=== PATIENT | female | born 1955 | race Caucasian/White ===

== ENCOUNTER → 2016-06-23 | Outpatient (CLI) | payer OTHER, MEDICARE ==
[~2016-06-23] MED LIST: ASMIN/60 INH; ATV/2; AZEL137S6 NAE; CHOL200010; EFF/375 PO; IPRA0.03; IPRASOL34 INH; LEVA1.25 INH; MCRK20 PO; OMEP20CA9 PO; OXYC-59 PO; OXYC1TAB3 PO; OXYC20TA50 PO; PRM/45 PO; PROM25TA PO; SENN-91; TRIA75TA
== END | disposition home or self-care (01) ==
LOC: C.RDSM 14:51
PROVIDERS: ATTEND Physical Medicine & Rehabilitation Sports Medicine
DX: M25.551 Pain in right hip (principal); M25.552 Pain in left hip; M25.561 Pain in right knee

== ENCOUNTER → 2016-08-21 | Outpatient (CLI) | payer OTHER, MEDICARE ==
--- NOTE | 2016-08-21 16:19 | MAMMOGRAPHY REPORT ---
BILATERAL DIGITAL SCREENING MAMMOGRAM WITH CAD: 08/21/2016 CLINICAL HISTORY: Routine screening. Patient has no complaints. TECHNIQUE: Bilateral CC, MLO and repeat right MLO views were obtained. Current study was also evalua emily with a Computer Aided Detection (CAD) system. COMPARISON: Comparison is made to exams dated: 10/28/2013 mammogram, 10/21/2012 mammogram, 11/28/2010 m ammogram, 11/27/2009 mammogram - [facility], and 08/08/2008. BREAST COMPOSITION: The tissue of both breasts is almost entirely fatty. FINDINGS: The exam is markedly suboptimal due to inability of the patient adequately position for the exam. Within these limitations, there is stable asymmetry in the lateral left breast. No new suspi cious mass, architectural distortion or cluster of microcalcifications is seen. IMPRESSION: ACR BI-RADS CATEGORY 1: NEGATIVE Markedly suboptimal exam due to inability of the patient to adequately position for mammograms given her condition. Within this limitation, in the visualized portions of the breasts, there is no mammog raphic evidence of malignancy. A 1 year screening mammogram is recommended. The patient will receive written notification of the results. Approximately 10% of breast cancers are not detected with mammography. A negative mammographic report should not delay biopsy if a clinically suggestive mass is present. Lelia Luong M.D. ay/:08/21/2016 15:21:51 Laboratory Administrative Director: Ashly SALAZAR)(Daiana), [facility] letter sent: Normal 1/2 BI-RADS Code: ACR BI-RADS Category 1: Negative
== END | disposition home or self-care (01) ==
LOC: C.MAMM 14:55
PROVIDERS: ATTEND Obstetrics & Gynecology
DX: Z12.31 Encounter for screening mammogram for malignant neoplasm of breast (principal)

== ENCOUNTER → 2016-09-22 | Outpatient (CLI) | payer OTHER, MEDICARE ==
--- NOTE | 2016-09-22 16:59 | DIAGNOSTIC IMAGING REPORT ---
LUMBAR SPINE W/O CONTRAST HISTORY: Pain. Neuropathy. SPASTIC QUADR PLEGIA TECHNIQUE: Multiplanar multisequence MRI of the lumbar spine was performed without the use of contrast. COMPARISON: None. FINDINGS: For the purpose of the report the L5-S1 disc space will be located on axial image 27 of 30. Somewhat limited exam due to patient motion. Significant hypertrophic change posterior elements T10-T11 of the thoracic spine creating significant narrowing of the right neuroforamina. This area was not specifically scanned. Moderate degenerative change of the lumbar region. L1-L2: No significant central canal or neural foraminal narrowing. L2-L3: No significant central canal or neural foraminal narrowing. L3-L4: Mild central disc bulge. Minimal impact anterior thecal sac. L4-L5: Moderate multifactorial narrowing of the spinal canal. Mild broad-based bulging disc. L5-S1: Moderate degenerative change posterior limits. No significant compromise of the spinal canal or neural foramina. IMPRESSION: 1. Somewhat limited exam due to patient motion 2. Moderate multifactorial narrowing of spinal canal at L4-L5 and to a lesser extent L3-L4. 3. Hypertrophic change posterior elements T10-T11 level of the thoracic region demonstrate significant compromise of the right neuroforamina. This area was not specifically scanned The above report was generated using voice recognition software. It may contain grammatical, syntax or spelling errors. Electronically signed by: Ranjith Gagnon M.D. 09/22/2016 4:58 PM Dictated Date/Time: 09/22/2016 4:54 PM
== END | disposition home or self-care (01) ==
LOC: C.MRIBC 15:14
PROVIDERS: ATTEND Physical Medicine & Rehabilitation
DX: G83.89 Other specified paralytic syndromes (principal)

== ENCOUNTER → 2017-02-19 | Outpatient (CLI) | payer OTHER, MEDICARE | END | disposition home or self-care (01) | LOC: C.PAPS 09:03 | PROVIDERS: ATTEND Obstetrics & Gynecology | DX: Z01.411 Encounter for gynecological examination (general) (routine) with abnormal findings (principal); N95.2 Postmenopausal atrophic vaginitis; N95.8 Other specified menopausal and perimenopausal disorders; R87.628 Other abnormal cytological findings on specimens from vagina ==

== ENCOUNTER → 2017-10-08 | Day surgery (SDC) | payer OTHER, MEDICARE ==
[2017-10-01 13:08] VITALS: Ht 154.9 cm; Wt 109.1 kg
[~2017-10-08] VITALS: Ht 154.9 cm; Wt 109.1 kg
[~2017-10-08] MED LIST changes: +ALPR1TAB3 PO; +ASTN; -ATV/2; +ATV/2 PO; -AZEL137S6 NAE; -CHOL200010; +CHOL200010 PO; +HYDR-5688 PO; +IOPAMIDOL INJ 61% 15 ML VIAL ONE; +IPRA-64 INH; -IPRA0.03; -IPRASOL34 INH; -LEVA1.25 INH; +LEVA1.258 INH; +LIDOCAINE HCL 1% MPF 5 ML VIAL ONE; +LINA72CA PO; +MAGN400T6 PO; +MCRK/10 PO; -MCRK20 PO; +METH1CAP34 PO; +ONDA-170 PO; -OXYC-59 PO; -OXYC1TAB3 PO; -OXYC20TA50 PO; +POTA10CA28 PO; +PREMARIN CREAM; -PROM25TA PO; -SENN-91; +SODIUM CHLORIDE 0.9% INJ 10 ML VIAL ONE; -TRIA75TA; +VNTHFA/IN INH
--- NOTE | 2017-10-08 12:47 | History & Physical Bridge - SC ---
H&P Re-Evaluation Bridge Note: I have examined the patient, reviewed the History & Physical and in the interval since the performance of the History & Physical I have noted the following changes of clinical significance: No changes noted
--- NOTE | 2017-10-08 13:49 | [facility] Post Operative Brief Note ---
Immediate Operative Summary Operative Date Oct 08, 2017. Pre-Operative Diagnosis L4-5 stenosis with right L5 radiculopathy Post-Operative Diagnosis Same Procedure(s) Performed Lumbar Epidural Steroid Injection Surgeon Dr. Koko Loo Pharmaceutical Physician Surgeon(s) None Estimated Blood Loss 0 Findings Consistent with Post-Op Diagnosis Specimens NA Drains None Anesthesia Type Local Complication(s) none Disposition Disposition:
--- NOTE | 2017-10-08 13:50 | Discharge Instructions ---
Discharge Instructions Date of Service Oct 08, 2017. Visit Reason for Visit: Neuropathic Pain, Spastic Quadriplegia Discharge Discharge Diagnosis / Problem: Right leg pain Discharge Goals Goal(s): Decrease discomfort, Improve function Activity Recommendations Activity Limitations: resume your previous activity Anesthesia . Post Anesthesia Instructions: If you have had General Anesthesia or IV Sedation: * Do not drive today. * Resume driving when surgeon permits. * Do not make important decisions or sign legal documents today. * Call surgeon for: 1. Temperature elevations greater than 101 degrees F. 2. Uncontrollable pain. 3. Excessive bleeding. 4. Persistent nausea and vomiting. 5. Medication intolerance (nausea, vomiting or rash). * For nausea and vomiting use only clear liquids such as: tea, soda, bouillon until nausea subsides, then gradually increase diet as tolerated. * If you have any concerns or questions, call your surgeon's office. If physician is unavailable and it is an emergency, call 911 or go to the nearest emergency room. . Diet Recommendations Recommended Home Diet: resume previous diet Procedures Procedures Performed: Lumbar Epidural Steroid Injection Pending Studies Studies pending at discharge: no Medical Emergencies . Who to Call and When: Medical Emergencies: If at any time you feel your situation is an emergency, please call 911 immediately. . Non-Emergent Contact Non-Emergency issues call your: Specialist . . "Provider Documentation" section prepared by Cleve Loo. .
--- NOTE | 2017-10-08 14:08 | OPERATIVE REPORT ---
DATE OF OPERATION: 10/08/2017 PREOPERATIVE DIAGNOSIS: L4-L5 stenosis with a right L5 radiculopathy. POSTOPERATIVE DIAGNOSIS: L4-L5 stenosis with a right L5 radiculopathy. PROCEDURE: Right paramedian L5-S1 intralaminar epidural steroid injection under fluoroscopic guidance. INDICATIONS: The patient is a 62-year-old white female who has L4-L5 multifactorial stenosis with L5 radicular pain down the right leg. She has not responded to attempts of conservative treatment, presents today for an epidural steroid injection to provide her with relief. PHYSICAL EXAMINATION: Pleasant female, seated comfortably. She has some decreased sensation in the L4-L5 dermatome of the right lower extremity. Her left lower is without sensory changes. She has increased tone bilaterally in her lower extremities. CONSENT: Verbal and written consent was obtained from the patient. Risks and benefits were reviewed. Risks include, but not limited to epidural abscess, epidural hematoma, allergic reaction, dural puncture. The patient wishes to proceed. DESCRIPTION OF PROCEDURE: The patient was taken back to the special procedures room of the [facility] where she was maintained in a prone position. Backside was cleansed with Betadine x3 and a dry sterile dressing was applied. Fluoroscope was used to identify the L5-S1 intralaminar space which appeared open. L4-L5 was extremely tight. Overlying skin on the right side was anesthetized with a total 5 mL of lidocaine 1% with a 25-gauge 1.5-inch needle. A 20-gauge 6-inch Tuohy needle was then directed down towards the intralaminar space. It was advanced under lateral fluoroscopic guidance and kept contacting bone on the right side. It was then directed more midline at an oblique angle to enter the epidural space with a loss of resistance at a depth of 10 cm. Isovue-300 contrast 1 mL was injected in which demonstrated epidural uptake pattern. She then underwent injection after negative aspiration of 40 mg Depo-Medrol and 4 mL of preservative-free sodium chloride which was very slow as the patient was very sensitive. DISPOSITION: 1. The patient was taken out into the discharge recovery room where she will be discharged home once discharge criteria have been met. 2. Follow up in the [facility] office in 4 weeks' time. I attest to the content of the Intraoperative Record and any orders documented therein. Any exception s are noted below.
[2017-10-08 14:36] VITALS: PULSE 69; TEMP 36.4; O2SAT 97
[2017-10-08 14:47] VITALS: BP 168/90
== END | disposition home or self-care (01) ==
LOC: X.SURG 12:30
PROVIDERS: ATTEND Physical Medicine & Rehabilitation
DX: M54.16 Radiculopathy, lumbar region (principal); G80.0 Spastic quadriplegic cerebral palsy; Z79.899 Other long term (current) drug therapy

== ENCOUNTER 2022-12-12 17:03 | Inpatient (IN) ==
--- NOTE | 2022-12-12 17:16 | ED Triage Note ---
Date of Service December 12, 2022 History of Present Illness This patient was briefly evaluated while in triage. An abbreviated physical exam was performed. This patient is a 67-year-old Female who presents to the ED for evaluation of edema in her legs and shortness of breath. She has had worsening shortness of breath and trouble remembering over the past few weeks. She saw her PCP today and they sent her in. Physical Exam VITALS: Vitals are noted on the nurse's note and reviewed by myself. GENERAL: This is a 67-year-old female, sitting in a wheelchair in triage. MOUTH: Mucous membranes moist. HEART: Regular rate and rhythm without murmurs gallops or rubs. LUNGS: Clear to auscultation bilaterally without wheezes, rales or rhonchi. EXTREMITIES: Edema and erythema to bilateral lower extremities. NEURO: Patient was alert and oriented to person place and time. Initial orders for labs and / or imaging were placed and patient was placed in the waiting area until a bed is available. Please see further documentation for the full ED course.
[2022-12-12 18:00] LABS: Base Excess VBG 10.3 mEq/L; HCO3 VBG 37 mmol/L; Oxygen Saturation VBG 79.4 %; PCO2 VBG 57 mmHg (38-50); PO2 VBG 46 mmHg; pH VBG 7.42 (7.36-7.41)
[2022-12-12 18:17] LABS: Basophils # (auto) 0.05 K/uL (0.00-0.20); Basophils % (auto) 0.6 %; Eosinophils # (auto) 0.26 K/uL (0.00-0.50); Hematocrit (blood only) 38.5 % (37.0-47.0); Hemoglobin 11.4 g/dl (12.0-16.0); Immature Granulocytes # (auto) 0.02 K/uL (0.01-0.20); Immature Granulocytes % (auto) 0.2 %; Lymphocytes # (auto) 2.51 K/uL (1.20-3.40); Lymphocytes % (auto) 28.7 %; Mean Corpuscular Hgb Conc 29.6 g/dL (32.0-36.0); Mean Corpuscular Volume 81.1 fL (80.0-100.0); Mean Platelet Volume 10.5 fL (9.4-12.4); Monocytes # (auto) 0.53 K/uL (0.11-0.59); Monocytes % (auto) 6.1 %; Neutrophils # (auto) 5.37 K/uL (1.40-6.50); Neutrophils % (auto) 61.4 %; Platelet Count 332 K/uL (130-400); RDW Coefficient of Variation 16.3 % (11.5-14.5); RDW Standard Deviation 47.6 fL (36.4-46.3); Red Blood Count 4.75 M/uL (4.20-5.40); White Blood Count 8.74 K/ul (4.8-10.8)
[2022-12-12 18:37] LABS: Alanine Aminotransferase 6 U/L (7-52); Albumin Globulin Ratio 1.1 (0.9-2); Alkaline Phosphatase 34 U/L (34-104); Anion Gap 6 (3-11); Aspartate Aminotransferase 22 U/L (13-39); BUN Creatinine Ratio 21.8 (10-20); Bilirubin,Total 0.5 mg/dl (0.2-1.0); Blood Urea Nitrogen 12 mg/dl (6-23); Calcium 8.9 mg/dl (8.6-10.3); Carbon Dioxide 33 mmol/L (21-32); Chloride 99 mmol/L (98-107); Est GFR (African American) 110.9 ml/min; Est GFR (Non-African American) 95.7 ml/min; Globulin 3.7 gm/dl (2.5-4.0); Glucose 94 mg/dl (70-99(Fasting)); Potassium 4.2 mmol/L (3.5-5.1); Sodium 138 mmol/L (136-145); Total Protein 7.7 gm/dl (6.0-8.3)
[2022-12-12 18:42] LABS: Troponin I High Sensitivity 12.3 pg/ml (0-14)
[2022-12-12] MEDS ORDERED: FUROSEMIDE 40 MG/4 ML VIAL IV STA (20:03)
--- NOTE | 2022-12-12 20:04 | Emergency Department Note ---
Impression & Plan Shortness of breath, Edema, pitting ED Provider Note NAME: OG CHANDRA AGE: 67 SEX: F : 1955 ARRIVES VIA: Walk-In INFORMANT: Patient ED PROVIDER(S): Milton Lucas DO CHIEF COMPLAINT: Shortness of breath and confusion HPI: Patient is a 67-year-old female with a past medical history of cerebral palsy who presents to the the ER for shortness of breath, confusion and weakness. Patient notes that she has had increased swelling of her legs which has been going on over the past week. She has been taking her Lasix. She does not believe that she missed any doses. She denies any headache or change in vision. No chest pain but does have shortness of breath. No belly pain, nausea, vomiting, or diarrhea. No dysuria, urgency, or frequency. No other exacerbating or remitting factors. ADDITIONAL HISTORY OBTAINED: Per HPI Chronic Medical/Social Conditions Affecting Care: Per HPI PAST MEDICAL HISTORY:See Below PAST SURGICAL HISTORY:See Below FAMILY HISTORY:See Below SOCIAL HISTORY:See Below HOME MEDICATIONS:See Below ALLERGIES:See Below VITALS:See Below PHYSICAL EXAMINATION: GENERAL: Sitting up in bed, alert, well appearing, well nourished, no distress, non-toxic EYE EXAM: normal conjunctiva. OROPHARYNX: mucous membranes are moist NECK: supple, no nuchal rigidity, no adenopathy, non-tender LUNGS: Clear to auscultation. Normal chest wall mechanics HEART: no murmurs, S1 normal and S2 normal ABDOMEN: abdomen soft, non-tender, normo-active bowel sounds, no masses, no rebound or guarding. BACK: Back is symmetrical on inspection and there is no deformity, no midline tenderness, no CVA tenderness. SKIN: no rashes and no bruising UPPER EXTREMITIES: upper extremities are grossly normal. LOWER EXTREMITIES: No pitting edema. NEURO EXAM: Normal sensorium, cranial nerves II-XII grossly intact, normal speech. MEDICAL DECISION MAKING: Patient is a 67-year-old female who presents ER for above-stated complaint. IV was established blood work was obtained. Labs show no significant leukocytosis and mild anemia 11.4. VBG with a pH of 7.4 and a CO2 of 57. BMP along with LFTs bilirubin was unremarkable. Troponin was negative. proBNP was elevated at 104. Chest x-ray was unremarkable. Patient has pitting edema in the lower extremities tracking up to the hips. Patient was given IV Lasix. Updated bedside. Discussed with the hospitalist for further evaluation management and treatment. External Records Reviewed: Saw Dr. Goyal on 11/25 for cerebral palsy Consults/Care Managements Discussions: Per [facility] Triage Nursing notes reviewed. Limited review of prior medical records performed Vital Signs: reviewed and remarkable for HTN Differential diagnosis: Differential diagnoses includes but is not limited to pneumonia, bronchitis, COPD/Asthma exacerbation, pneumothorax, pulmonary embolism, congestive heart failure, acute coronary syndrome ER treatment provided: See below Diagnostics interpreted by me include EKG and cardiac monitoring as listed below: -Cardiac Monitoring: An order was placed for continuous cardiac monitoring. The monitor shows a rate of 70 with sinus rhythm. -ECG: none -Laboratory studies:Interpreted by me as stated above in MDM and shown below. Imaging studies: Xrays: As interpreted by me: Portable AP upright 1 view of the chest shows no focal infiltrate CTs show: none Procedures:none Critical Care: None Past Med/Surg History Medical History (Updated 12/13/22 @ 00:07 by Milton Lucas DO) Anxiety Baclofen pump failure Cerebral palsy Chronic back pain Depression GERD (gastroesophageal reflux disease) History of anesthesia reaction pt states that the last time she had an EGD at [facility] they had the blood pressure cuff on the same arm as her IV and she never received enough anes thesia because of this and she was in pain throughout all the whole experience Hypertension Nerve pain Post traumatic stress disorder Restrictive lung disease reason for inhalers/nebulizer Type I CRPS (complex regional pain syndrome) Surgical History (Updated 11/12/22 @ 13:19 by Radha Leal RN) H/O: hysterectomy with unilateral oophorectomy History of appendectomy History of arthroscopy of left knee History of arthroscopy of right knee History of colonoscopy History of esophagogastroduodenoscopy (EGD) History of left hip replacement History of oophorectomy, unilateral right History of tonsillectomy History of tooth extraction History of total left hip replacement S/P endoscopy Family History Father Family history of diabetes mellitus Myocardial infarction Other No family history of adverse response to anesthesia Denies family history of Ovarian cancer Prostate cancer Breast cancer Colorectal cancer Social History (Updated 11/12/22 @ 13:43 by Radha Leal RN) Smoking Status: Never smoker Tobacco Type: Cigarettes Age Started Using Tobacco: 16; Age Quit Using Tobacco: 19; Cigarettes Per Day: 2-3; Second Hand Exposure: Yes (IN THE PAST); Do You Dip or Chew Tobacco: No; Hx Alcohol Use: No Hx Substance Use: No Preferred Language: Austrian Communication Ability: Effective Visual Impairment: Partially Limited Hearing Ability: Hard of Hearing Shop Firer/Fireman Required: No Beliefs That Will Affect Care: None marital status: Current Living Situation: Spouse current occupational status: disabled Feels Safe at Home: Yes Childhood Exposure to Second-Hand Smoke: Yes Diet: regular Diet Comment: Mediterranean Dental Care, Regularly: Yes Physical Activity Frequency: Does not Exercise Seatbelt Use: always Sunscreen Use: No Assistive Devices: Glasses, Nebulizer and Wheelchair Allergies Allergies Allergy/AdvReac Type Severity Reaction Status Date / Time duloxetine Allergy Severe INCREASES Verified 11/25/22 14:34 MUSCLE SPASMS, UNABLE TO MOVE fentanyl Allergy Severe "I almost Verified 11/25/22 14:34 when they gave it me" fexofenadine Allergy Severe HEART Verified 11/25/22 14:34 PALPITATIONS iodine Allergy Severe RASH, Verified 11/25/22 14:34 BLISTERS, ITCHING latex Allergy Severe RASH, Verified 11/25/22 14:34 BLISTERS povidone-iodine Allergy Severe RASH, Verified 11/25/22 14:34 BLISTERS salmeterol Allergy Severe INCREASE Verified 11/25/22 14:34 SPASMS AND CAN NOT MOVE diazepam Allergy Intermediate FALLS Verified 11/25/22 14:34 ASLEEP AND DROOL adhesive Allergy Mild RASH, Verified 11/25/22 14:34 BLISTERS baclofen Allergy Mild SLEEPY AND Verified 11/25/22 14:34 LEG PAIN cephalexin Allergy Mild NAUSEA, Verified 11/25/22 14:34 FLU-LIKE SYMPTOMS, RASH fluticasone Allergy Mild NOSE BLEEDS Verified 11/25/22 14:34 gabapentin Allergy Mild DIZZINESS Verified 11/25/22 14:34 AND FELL OVER tramadol Allergy Mild RASH & Verified 11/25/22 14:34 ITCHING methadone AdvReac Mild MEMORY Verified 11/25/22 14:34 LOSS, DIZZINESS, NIGHTMARES Home Meds Home Medications Medication Instructions Recorded Confirmed albuterol sulfate 90 mcg/actuation 1 puff inhalation UD PRN Shortness 11/12/18 11/25/22 aerosol inhaler Of Breath artificial tears(hypromellose) 0.3 1 drp ophthalmic (eye) UD PRN Dry 11/12/18 11/25/22 % eye drops Eye(S) azelastine 137 mcg (0.1 %) nasal 1 spray intranasal UD PRN Allergy 11/12/18 11/25/22 spray aerosol Symptoms levalbuterol HCl 1.25 mg/3 mL 1.25 mg inhalation UD PRN 11/12/18 11/25/22 solution for nebulization Shortness Of Breath lorazepam 2 mg tablet 2 mg PO Q4 09/07/19 11/25/22 calcium carbonate 500 mg calcium 500 mg PO QAM 11/10/19 11/25/22 (1,250 mg) tablet (Calcium 500) cholecalciferol (vitamin D3) 25 2,000 mcg PO QAM 11/10/19 11/25/22 mcg (1,000 unit) tablet (Vitamin D3) omega-3 fatty acids 1,000 mg PO QAM 11/10/19 11/25/22 hydrocodone 10 mg-acetaminophen 2 tab PO Q4H PRN 03/15/20 11/25/22 325 mg tablet TESTOSTERONE MICRO 0.1% See Rx Instructions .Route 1XD 11/12/22 11/25/22 alprazolam 1 mg disintegrating 1.5 mg PO DAILY PRN Anxiety #30 11/12/22 11/25/22 tablet tabs aripiprazole 10 mg tablet (Abilify) 10 mg PO DAILY 11/12/22 11/25/22 furosemide 20 mg tablet 60 mg PO DAILY 11/12/22 11/25/22 mirtazapine 30 mg tablet 30 mg PO HS 11/12/22 11/25/22 omeprazole 20 mg capsule,delayed 20 mg PO DAILY Acid Reflux 11/12/22 11/25/22 release potassium chloride 10 mEq 20 meq PO DAILY 11/12/22 11/25/22 tablet,extended release venlafaxine 25 mg tablet 75 mg PO DAILY 11/12/22 11/25/22 Previous Rx's Medication Instructions Recorded famotidine 20 mg tablet (Pepcid AC) 20 mg PO DAILY #30 tabs 11/18/19 nystatin-triamcinolone 100,000 1 applic topical QID PRN Rash 10 11/15/20 unit/g-0.1 % topical cream days #60 grams conjugated estrogens 0.625 mg/gram 0.3125 mg vaginal 3XWK #30 grams 12/03/20 vaginal cream (Premarin) ondansetron 8 mg disintegrating 8 mg PO Q8H PRN Nausea #90 tabs 01/17/21 tablet sucralfate 100 mg/mL oral 5 ml PO QID #420 mL 05/03/21 suspension (Carafate) diazepam 5 mg tablet (Valium) 5 mg PO .COMPLEX PRN anxiety #2 03/12/22 tabs conjugated estrogens 0.45 mg 0.45 mg PO DAILY #30 tabs 04/04/22 tablet (Premarin) Results & Data (ED) Vital Signs Vital Signs - 24 hr 12/12/22 17:15 Temperature 36.6 C Temperature Source Temporal Artery Scan Pulse Rate 75 Respiratory Rate 18 Respiratory Effort / Characteristics Non-Labored Respiratory Depth Normal Blood Pressure 198/108 H Blood Pressure Mean 138 Pulse Oximetry 94 Oxygen Delivery Method Room Air Sepsis Recent Fever Within 48 Hours No Sepsis New/Unexplained Change in Mental Status No Sepsis Action Taken by Nursing No Action Required Laboratory Data 12/12/22 17:37 12/12/22 17:37 Lab Results 12/12/22 12/12/22 12/12/22 Range/Units 17:37 17:37 17:37 WBC 8.74 (4.8-10.8) K/ul RBC 4.75 (4.20-5.40) M/uL Hgb 11.4 L (12.0-16.0) g/dl Hct 38.5 (37.0-47.0) % MCV 81.1 (80.0-100.0) fL MCH 24.0 L (25.0-34.0) pg MCHC 29.6 L (32.0-36.0) g/dL RDW Std Deviation 47.6 H (36.4-46.3) fL RDW Coeff of Luis 16.3 H (11.5-14.5) % Plt Count 332 (130-400) K/uL MPV 10.5 (9.4-12.4) fL Immature Gran % (Auto) 0.2 % Neut % (Auto) 61.4 % Lymph % (Auto) 28.7 % [place] % (Auto) 6.1 % Eos % (Auto) 3.0 % Baso % (Auto) 0.6 % Neut # (Auto) 5.37 (1.40-6.50) K/uL Lymph # (Auto) 2.51 (1.20-3.40) K/uL [place] # (Auto) 0.53 (0.11-0.59) K/uL Eos # (Auto) 0.26 (0.00-0.50) K/uL Baso # (Auto) 0.05 (0.00-0.20) K/uL Immature Gran # (Auto) 0.02 (0.01-0.20) K/uL VBG pH 7.42 H (7.36-7.41) VBG pCO2 57 H (38-50) mmHg VBG pO2 46 mmHg VBG HCO3 37 mmol/L VBG O2 Saturation 79.4 % VBG Base Excess 10.3 mEq/L Sodium (136-145) mmol/L Potassium (3.5-5.1) mmol/L Chloride (98-107) mmol/L Carbon Dioxide (21-32) mmol/L Anion Gap (3-11) BUN (6-23) mg/dl Creatinine (0.6-1.2) mg/dl Est Cr Clr Drug Dosing Est GFR ( Amer) ml/min Est GFR (Non-Af Amer) ml/min BUN/Creatinine Ratio (10-20) Glucose (70-99(Fasting)) mg/dl Calcium (8.6-10.3) mg/dl Total Bilirubin (0.2-1.0) mg/dl AST (13-39) U/L ALT (7-52) U/L Alkaline Phosphatase (34-104) U/L Troponin I High Sens (0-14) pg/ml B-Natriuretic Peptide 104 H (0-100) pg/ml Total Protein (6.0-8.3) gm/dl Albumin (3.4-5.0) gm/dl Globulin (2.5-4.0) gm/dl Albumin/Globulin Ratio (0.9-2) 12/12/22 Range/Units 17:37 WBC (4.8-10.8) K/ul RBC (4.20-5.40) M/uL Hgb (12.0-16.0) g/dl Hct (37.0-47.0) % MCV (80.0-100.0) fL MCH (25.0-34.0) pg MCHC (32.0-36.0) g/dL RDW Std Deviation (36.4-46.3) fL RDW Coeff of Luis (11.5-14.5) % Plt Count (130-400) K/uL MPV (9.4-12.4) fL Immature Gran % (Auto) % Neut % (Auto) % Lymph % (Auto) % [place] % (Auto) % Eos % (Auto) % Baso % (Auto) % Neut # (Auto) (1.40-6.50) K/uL Lymph # (Auto) (1.20-3.40) K/uL [place] # (Auto) (0.11-0.59) K/uL Eos # (Auto) (0.00-0.50) K/uL Baso # (Auto) (0.00-0.20) K/uL Immature Gran # (Auto) (0.01-0.20) K/uL VBG pH (7.36-7.41) VBG pCO2 (38-50) mmHg VBG pO2 mmHg VBG HCO3 mmol/L VBG O2 Saturation % VBG Base Excess mEq/L Sodium 138 (136-145) mmol/L Potassium 4.2 (3.5-5.1) mmol/L Chloride 99 (98-107) mmol/L Carbon Dioxide 33 H (21-32) mmol/L Anion Gap 6 (3-11) BUN 12 (6-23) mg/dl Creatinine 0.55 L (0.6-1.2) mg/dl Est Cr Clr Drug Dosing Not Reportable Est GFR ( Amer) 110.9 ml/min Est GFR (Non-Af Amer) 95.7 ml/min BUN/Creatinine Ratio 21.8 H (10-20) Glucose 94 (70-99(Fasting)) mg/dl Calcium 8.9 (8.6-10.3) mg/dl Total Bilirubin 0.5 (0.2-1.0) mg/dl AST 22 (13-39) U/L ALT 6 L (7-52) U/L Alkaline Phosphatase 34 (34-104) U/L Troponin I High Sens 12.3 (0-14) pg/ml B-Natriuretic Peptide (0-100) pg/ml Total Protein 7.7 (6.0-8.3) gm/dl Albumin 4.0 (3.4-5.0) gm/dl Globulin 3.7 (2.5-4.0) gm/dl Albumin/Globulin Ratio 1.1 (0.9-2) Administered Medications Discontinued Medications Alprazolam (Alprazolam 0.5 Mg Tablet) 1 mg PO NOW STA Stop: 12/12/22 21:28 Last Admin: 12/12/22 21:41 Dose: 1 mg Documented By: STEPHANIE Furosemide (Furosemide 40 Mg/4 Ml Vial) 40 mg IV NOW STA Stop: 12/12/22 20:04 Last Admin: 12/12/22 21:41 Dose: 40 mg Documented By: STEPHANIE Imaging Data Radiologist's Impression: Chest X-Ray 12/12/22 17:18 XR chest 1V portable HISTORY: 67 years-old Female Sob acute shortness of breath COMPARISON: 11/24/2022 TECHNIQUE: AP view of the chest FINDINGS: Cardiac silhouette is enlarged. Pulmonary vascular congestion. Mild bibasilar densities. No pneumothorax, or large pleural effusion. Mild mid thoracic dextroscoliosis. Degenerative changes of the shoulders and spine. IMPRESSION: 1. Cardiomegaly with decreased pulmonary vascular congestion compared to the prior exam. 2. Mild bibasilar opacities. ACT 112: Negative or not required by law. The above report was generated using voice recognition software. It may contain grammatical, syntax or spelling errors. Electronically signed by: Emmett Montes M.D. 12/12/2022 9:04 PM Discharge Plan Visit Data Chief Complaint: Edema To Extremity Stated Complaint: EDEMA TO LEGS, SOB ED Provider: Milton Lucas Discharge Problem: Shortness of breath, Edema, pitting Discharge Instructions Interventions: ED Discharge Assessment Last Done: 12/12/22 22:30
--- NOTE | 2022-12-12 21:06 | XRay Report ---
XR chest 1V portable HISTORY: 67 years-old Female Sob acute shortness of breath COMPARISON: 11/24/2022 TECHNIQUE: AP view of the chest FINDINGS: Cardiac silhouette is enlarged. Pulmonary vascular congestion. Mild bibasilar densities. No pneumotho rax, or large pleural effusion. Mild mid thoracic dextroscoliosis. Degenerative changes of the should ers and spine. IMPRESSION: 1. Cardiomegaly with decreased pulmonary vascular congestion compared to the prior exam. 2. Mild bibasilar opacities. ACT 112: Negative or not required by law. The above report was generated using voice recognition software. It may contain grammatical, syntax o r spelling errors. Electronically signed by: Emmett Montes M.D. 12/12/2022 9:04 PM
[2022-12-12] MEDS ORDERED: ALPRAZolam 0.5 MG TABLET PO STA (21:27)
--- NOTE | 2022-12-12 21:36 | History & Physical Report ---
Date of Service December 12, 2022 Assessment & Plan (1) Fluid overload: Plan: -Progressive dyspnea, worsening peripheral edema and weight gain with noted mild elevation of BNP and CXR findings suggestive of hypervolemia -Suspect this may represent CHF exacerbation (unclear trigger), though her symptoms may also be attributed to progressive deconditioning, chronic venous stasis and uncontrolled PEEWEE/OHS (there is apparently a history of PEEWEE diagnosis in past per but never started treatment with CPAP) -S/p Lasix 40 mg IV in ER. Continue Lasix 40 mg IV BID for now though low threshold to reduce/discontinue as clinical course evolves -Compression stockings ordered -Pure wick catheter placed, strict I's and O's -Continue KCl supplementation while on diuresis -TTE pending, no previous echocardiogram in chart -Currently stable respiratory status on RA (2) Altered mental status: Plan: -AMS with increased lethargy and word-finding difficulty -Lower suspicion for acute neurologic injury given unimpressive neurological exam, I suspect this may be metabolic encephalopathy from fluid overload/possible CHF exacerbation vs sedation effect from her multiple psychotropic medications -Will hold psychotropic and sedative medications for now- Abilify, Xanax, Valium, Ativan, Remeron -Deferring head CT for now (3) Physical deconditioning: Plan: -Significant deconditioning secondary to fluid overload, multiple poorly controlled comorbidities -PT/OT ordered (4) Hypertension: Plan: -Suspected HTN urgency in outpatient office and noted BP elevation to 198/108 in ER -At time of evaluation, pt did not report particular HTN urgency symptoms including headache -Deferring PRN antihypertensive for now -Seemingly not on any antihypertensives as outpatient -Monitor BP, anticipate some reduction as diuresis continues (5) Anxiety: Plan: -Significant anxiety in ER for which Xanax 1 mg was administered (home dose reportedly Xanax 1.5 mg PRN daily) -We will hold further home anxiolytics (Xanax, lorazepam) given AMS (6) Chronic back pain: Plan: -Holding home [place] due to AMS -Reportedly on Valium and lorazepam for spasticity, holding as above -Tylenol PRN in interim (7) Depression: Plan: -Continue Effexor (8) Post traumatic stress disorder: Plan: -Continue Effexor (9) GERD (gastroesophageal reflux disease): Plan: -Continue omeprazole, famotidine, carafate Plan FENGI: Low salt, fluid restriction 1500 mL Code status: Full DVT prophylaxis: Lovenox Isolation: None Disposition: Medical/surgical with telemetry History of Present Illness Chief Complaint: Shortness of breath Primary Care Provider: Marcela Thomas MD Pt is 67 yo F with PMH anxiety, chronic back pain, depression, PTSD, GERD, HTN, PEEWEE presenting with edema and dyspnea. Pt referred to ED by PCP at clinic visit today given worsening edema and dyspnea causing concern for possible CHF/fluid overload. Was also seen on 11/20 and recommended ED evaluation but pt declined, Lasix increased to 40 mg BID. CXR significant for pulmonary edema b/l and BMP demonstrating hypercapnia. Pt has been having headache, hypoxia to O2 80s% and elevated BP 201/102 at home and informed clinic of this, advised to go to ED during nursing triage and became argumentative. History given by both patient and with significant clarification and corroboration by in private. Apparently, pt has been having ongoing leg swelling, weight gain (unspecified amount though 5+ lbs), dyspnea over past several weeks. She went to [facility] ER for this about 1 month prior and was discharged with instruction to continue daily compression hose. She reportedly had some psychiatric symptoms for which [facility] ER physicians considered 302 but permitted her to be discharged after close outpatient psychiatric f/u was arranged with [facility] locally. Psychiatry has reportedly made medication changes but details unknown. Pt has been having increasing word finding difficulty over past few weeks with an abrupt increase in this as of 12/11. She has been having associated lethargy and inattention at home. Has not had any particular Pt arrived to ER with BP 198/108. Initial evaluation significant for Hgb 11.4, VBG pH 7.42 and pCO2 57, CO2 33, BNP 104, CXR with b/l opacities, pulmonary vascular congestion and mild pulmonary edema b/l (though improved from previous CXR). EKG unremarkable. ER interventions include Lasix 40 mg IV. At present, pt reports frustration being in ER and general discomfort. Insisted on receiving anxiety medication. Denies any new complaints, states dyspnea is ongoing but mildly improved after Lasix. Allergies Allergy/AdvReac Type Severity Reaction Status Date / Time duloxetine Allergy Severe INCREASES Verified 11/25/22 14:34 MUSCLE SPASMS, UNABLE TO MOVE fentanyl Allergy Severe "I almost Verified 11/25/22 14:34 when they gave it me" fexofenadine Allergy Severe HEART Verified 11/25/22 14:34 PALPITATIONS iodine Allergy Severe RASH, Verified 11/25/22 14:34 BLISTERS, ITCHING latex Allergy Severe RASH, Verified 11/25/22 14:34 BLISTERS povidone-iodine Allergy Severe RASH, Verified 11/25/22 14:34 BLISTERS salmeterol Allergy Severe INCREASE Verified 11/25/22 14:34 SPASMS AND CAN NOT MOVE diazepam Allergy Intermediate FALLS Verified 11/25/22 14:34 ASLEEP AND DROOL adhesive Allergy Mild RASH, Verified 11/25/22 14:34 BLISTERS baclofen Allergy Mild SLEEPY AND Verified 11/25/22 14:34 LEG PAIN cephalexin Allergy Mild NAUSEA, Verified 11/25/22 14:34 FLU-LIKE SYMPTOMS, RASH fluticasone Allergy Mild NOSE BLEEDS Verified 11/25/22 14:34 gabapentin Allergy Mild DIZZINESS Verified 11/25/22 14:34 AND FELL OVER tramadol Allergy Mild RASH & Verified 11/25/22 14:34 ITCHING methadone AdvReac Mild MEMORY Verified 11/25/22 14:34 LOSS, DIZZINESS, NIGHTMARES Home Medications Medication Instructions Recorded Confirmed Type albuterol sulfate 90 mcg/actuation 1 puff inhalation UD PRN Shortness 11/12/18 11/25/22 History aerosol inhaler Of Breath artificial tears(hypromellose) 0.3 1 drp ophthalmic (eye) UD PRN Dry 11/12/18 11/25/22 History % eye drops Eye(S) azelastine 137 mcg (0.1 %) nasal 1 spray intranasal UD PRN Allergy 11/12/18 11/25/22 History spray aerosol Symptoms levalbuterol HCl 1.25 mg/3 mL 1.25 mg inhalation UD PRN 11/12/18 11/25/22 History solution for nebulization Shortness Of Breath lorazepam 2 mg tablet 2 mg PO Q4 09/07/19 11/25/22 History calcium carbonate 500 mg calcium 500 mg PO QAM 11/10/19 11/25/22 History (1,250 mg) tablet (Calcium 500) cholecalciferol (vitamin D3) 25 2,000 mcg PO QAM 11/10/19 11/25/22 History mcg (1,000 unit) tablet (Vitamin D3) omega-3 fatty acids 1,000 mg PO QAM 11/10/19 11/25/22 History famotidine 20 mg tablet (Pepcid AC) 20 mg PO DAILY #30 tabs 11/18/19 11/25/22 Rx hydrocodone 10 mg-acetaminophen 2 tab PO Q4H PRN 03/15/20 11/25/22 History 325 mg tablet nystatin-triamcinolone 100,000 1 applic topical QID PRN Rash 10 11/15/20 11/25/22 Rx unit/g-0.1 % topical cream days #60 grams conjugated estrogens 0.625 mg/gram 0.3125 mg vaginal 3XWK #30 grams 12/03/20 11/25/22 Rx vaginal cream (Premarin) ondansetron 8 mg disintegrating 8 mg PO Q8H PRN Nausea #90 tabs 01/17/21 11/25/22 Rx tablet sucralfate 100 mg/mL oral 5 ml PO QID #420 mL 05/03/21 11/25/22 Rx suspension (Carafate) diazepam 5 mg tablet (Valium) 5 mg PO .COMPLEX PRN anxiety #2 03/12/22 11/25/22 Rx tabs conjugated estrogens 0.45 mg 0.45 mg PO DAILY #30 tabs 04/04/22 11/25/22 Rx tablet (Premarin) TESTOSTERONE MICRO 0.1% See Rx Instructions .Route 1XD 11/12/22 11/25/22 History alprazolam 1 mg disintegrating 1.5 mg PO DAILY PRN Anxiety #30 11/12/22 11/25/22 History tablet tabs aripiprazole 10 mg tablet (Abilify) 10 mg PO DAILY 11/12/22 11/25/22 History furosemide 20 mg tablet 60 mg PO DAILY 11/12/22 11/25/22 History mirtazapine 30 mg tablet 30 mg PO HS 11/12/22 11/25/22 History omeprazole 20 mg capsule,delayed 20 mg PO DAILY Acid Reflux 11/12/22 11/25/22 History release potassium chloride 10 mEq 20 meq PO DAILY 11/12/22 11/25/22 History tablet,extended release venlafaxine 25 mg tablet 75 mg PO DAILY 11/12/22 11/25/22 History Past Med/Surg History Medical History (Updated 12/13/22 @ 00:07 by Milton Lucas DO) Anxiety Baclofen pump failure Cerebral palsy Chronic back pain Depression GERD (gastroesophageal reflux disease) History of anesthesia reaction pt states that the last time she had an EGD at [facility] they had the blood pressure cuff on the same arm as her IV and she never received enough anesthesia because of this and she was in pain throughout all the whole experience Hypertension Nerve pain Post traumatic stress disorder Restrictive lung disease reason for inhalers/nebulizer Type I CRPS (complex regional pain syndrome) Surgical History (Updated 11/12/22 @ 13:19 by Radha Leal RN) H/O: hysterectomy with unilateral oophorectomy History of appendectomy History of arthroscopy of left knee History of arthroscopy of right knee History of colonoscopy History of esophagogastroduodenoscopy (EGD) History of left hip replacement History of oophorectomy, unilateral right History of tonsillectomy History of tooth extraction History of total left hip replacement S/P endoscopy Family History Father Family history of diabetes mellitus Myocardial infarction Other No family history of adverse response to anesthesia Denies family history of Ovarian cancer Prostate cancer Breast cancer Colorectal cancer Social History (Updated 11/12/22 @ 13:43 by Radha Leal RN) Smoking Status: Former smoker Tobacco Type: Cigarettes Age Started Using Tobacco: 16; Age Quit Using Tobacco: 19; Cigarettes Per Day: 2-3; Second Hand Exposure: Yes (IN THE PAST); Do You Dip or Chew Tobacco: No; Hx Alcohol Use: No Hx Substance Use: Yes Last Used Substance Other:: HAS USED RX MARIJUANA IN PAST (PT WOULD NOT ANSWER CLEARLY/UNSURE IF USING) Preferred Language: Kyrgyz Communication Ability: Effective Visual Impairment: Partially Limited Hearing Ability: Hard of Hearing Foot Drill Operator Required: No Beliefs That Will Affect Care: None marital status: Current Living Situation: Spouse Current Living Situation Comment: Lives at home with current occupational status: disabled Feels Safe at Home: Yes Safety Concerns: Feels Safe At This Time Childhood Exposure to Second-Hand Smoke: Yes Diet: regular Diet Comment: Mediterranean Dental Care, Regularly: Yes Physical Activity Frequency: Does not Exercise Seatbelt Use: always Sunscreen Use: No Assistive Devices: Crutches, Glasses and Wheelchair Review of Systems Review of Systems: Per HPI/Subjective Physical Exam Physical Exam: General: ill-appearing, agitated, obese HEENT: PERRL, conjunctivae clear without injection, anicteric sclerae, moist mucous membranes, clear oropharynx without exudate or erythema Neck: supple, trachea midline, no thyromegaly, no JVD, no cervical lymphadenopathy CV: RRR, normal S1 and S2, no murmurs Resp: Diminished with coarse breath sounds diffusely, no increased work of breathing, no wheezes Abd: Soft, nontender, nondistended, no guarding or rebound, no hepatosplenomegaly Neuro: AOx3, no focal motor or sensory deficits, though pt distracted at times with some speech latency Skin: mild erythema and venous stasis changes of b/l LE Ext: 3+ b/l LE pitting edema with some mild erythema and warmth but nontender Results & Data Results & Data Vital Signs (Past 12 Hours) Vital Signs Temp Pulse Resp BP Pulse Ox O2 Del Method 12/12/22 17:15 36.6 C 75 18 198/108 H 94 Room Air Supervising Physician Co-Signing Physician Notes Attending addendum: I have physically seen this patient, have supervised the medical residents activities, and agree with the H&P unless as otherwise noted. Assessment and Plan: Fluid overload/-Elevated blood pressure- The patient will be admitted to telemetry for serial cardiac enzymes, serial EKG's, cardiac rhythm monitoring and a 2-D echocardiogram with Dopplers. Given Lasix 40 mg IV in the ED Admit on Lasix 40 mg IV twice daily Follow blood pressure response PureWick catheter to follow I's and O's Altered mental status- Metabolic encephalopathy/fluid overload Follow urine culture and sensitivity Physical deconditioning- Consult PT/OT Secondary to overall body habitus and fluid overload issues GERD- Continue omeprazole, famotidine and Carafate Resident Activity Tracking Resident Involvement: Resident Care Provided Care Provided: Adult Hospital Medicine
[2022-12-12] MEDS ORDERED: ACETAMINOPHEN 325 MG TAB PO PRN (23:48)
[2022-12-12] MEDS ORDERED: ALBUTEROL HFA 8 GM INHALER INH PRN (23:48)
[2022-12-13] MEDS ORDERED: HYDROcodone/ACETAMINOPHEN 10/325 TAB PO STA (00:26)
[2022-12-13 00:37] LABS: Appearance Urine Clear (Clear); Bilirubin Urine Negative (Negative); Blood Urine Negative (Negative); Color Urine Yellow; Glucose Urine UA Negative (Negative); Ketones Urine Negative (Negative); Leukocyte Esterase Urine Negative (Negative); Nitrite Urine Negative (Negative); Protein Urine Negative (Negative); Specific Gravity Urine 1.006 (1.000-1.030); Urobilinogen Urine Negative (Negative); pH Urine 8.5 (4.5-7.5)
[2022-12-13] MEDS ORDERED: Patient's HEIGHT &/or WEIGHT Needed SCH (00:45)
[2022-12-13] MEDS ORDERED: INFLUENZA VACCINE HIGH-DOSE (HD-IIV4) PF 65+ 0.7mL SYR IM ONE (01:10)
[2022-12-13] MEDS ORDERED: Nursing to Pharmacy Communication SCH ×2 (01:30→16:00)
[2022-12-13 06:00] LABS: Hematocrit (blood only) 37.5 % (37.0-47.0); Hemoglobin 11.3 g/dl (12.0-16.0); Mean Corpuscular Hgb Conc 30.1 g/dL (32.0-36.0); Mean Corpuscular Volume 79.8 fL (80.0-100.0); Mean Platelet Volume 10.4 fL (9.4-12.4); Platelet Count 341 K/uL (130-400); RDW Coefficient of Variation 16.1 % (11.5-14.5); RDW Standard Deviation 46.2 fL (36.4-46.3)
[2022-12-13 06:20] LABS: BUN Creatinine Ratio 19.6 (10-20); Calcium 8.6 mg/dl (8.6-10.3); Creatinine Clr Calc Pharmacy 114.4 ml/min; Est GFR (African American) 110.3 ml/min; Est GFR (Non-African American) 95.1 ml/min; Potassium 3.8 mmol/L (3.5-5.1)
--- NOTE | 2022-12-13 07:13 | Hospitalist Progress Note ---
Date of Service December 13, 2022 Assessment & Plan (1) Fluid overload: (2) Altered mental status: (3) Physical deconditioning: (4) Hypertension: (5) Anxiety: (6) Chronic back pain: (7) Depression: (8) Post traumatic stress disorder: (9) GERD (gastroesophageal reflux disease): Plan Fluid overload -Progressive dyspnea, worsening peripheral edema and weight gain with noted mild elevation of BNP and CXR findings suggestive of hypervolemia -Suspect this may represent CHF exacerbation (unclear trigger), though her symptoms may also be attributed to progressive deconditioning, chronic venous stasis and uncontrolled PEEWEE/OHS (there is apparently a history of PEEWEE diagnosis in past per but never started treatment with CPAP) -Compression stockings ordered - Lasix 40 mg IV BID -Continue KCl supplementation while on diuresis -TTE done today, waiting results -currently on nasal cannula at 2L -CMP am Altered mental status - increased lethargy and word-finding difficulty -Low suspicion for acute neurology injury -metabolic encephalopathy from fluid overload/possible CHF exacerbation vs sedation effect from her multiple psychotropic medications -hold psychotropic and sedative medications on admission: Abilify, Xanax, Valium, Ativan, Remeron -Improved mental status: Ativan was restarted for spasticity and improved mental status -Today more oriented, some lethargy present Physical deconditioning: - Multiple poorly controlled comorbidities -PT/OT Chronic back pain: -Holding home [place] due to AMS at admission -Chronic use of [place], restarted due to concern of withdrawal and improvement on mental status. -Tylenol PRN Hypertension: - -Suspected HTN urgency in outpatient office and noted BP elevation to 198/108 in ER -No symptoms, denied headache -Deferring PRN antihypertensive for now -Seemingly not on any antihypertensives as outpatient -Monitor BP, anticipate some reduction as diuresis continues Anxiety - Significant Anxiety on ER, This morning nursing refers treating on leaving AMA Chronic back pain: -Holding home [place] due to AMS -Reportedly on Valium and lorazepam for spasticity, holding as above -Tylenol PRN in interim Depression: -Continue Effexor Post traumatic stress disorder: -Continue Effexor GERD (gastroesophageal reflux disease): -Continue omeprazole, famotidine, carafate FENGI: Low salt, fluid restriction 1500 mL Code status: Full DVT prophylaxis: Lovenox Isolation: None Disposition: Medical/surgical with telemetry Admission and Anticipated Discharge Date Admission Date: December 12, 2022 Supervising Physician Co-Signing Physician Notes I personally examined the patient and verified all singh points of history and exam, discussed case, and agree with decision making with Dr Rnoaldo Mccloud Dyspnea on exertion, some confusion and lethargy. Swelling. Vitals noted, in general she is awake and alert pleasant no distress. HEENT normocephalic atraumatic mucous membranes moist. Breathing unlabored no accessory muscle use good effort. Skin shows no rashes no pallor or icterus. Lungs show diminished air entry and faint rales bilaterally and fairly shallow respiratory effort despite volitionally trying quite hard. Shortness of breath/hypoxiadefinitely appears to be some acute diastolic CHF (probably on chronic)diurese and then once things have leveled out add beta- karl and afterload reduction. I also harbor concerns about hypoventilation (both in PEEWEE/OHS motif) As well as restrictive lung disease from neuromuscular illness. ABG in a.m., she had PFTs last about 4 years agodefinitely will want to update these in the near future once she is at a more baseline state of breathing. Swelling also probably is to a degree of venous stasis. Confusion/sedationseems to relate to when she started Abilify. She certainly has a lot of high risk meds, but it sounds like most of her med regimen is fairly stable, the Abilify was started about 3 weeks ago, and the ups and downs of her mentation were started about 3 weeks ago. Given the complexity of her psych history, we discussed this might be more of a side effect to identify and have [facility] [place] manage, rather than make unilateral changes ourselves when we are not able to follow-up on them after discharge. DVT proph - lovenox Subjective Pt is 67 yo F with PMH anxiety, chronic back pain, depression, PTSD, GERD, HTN, PEEWEE presenting with edema and dyspnea. Patient with progressive worsening edema and dyspnea causing concern for possible CHF/ fluid overload. PAtient had been hypoxia O2 80s and elevated BP, lethargic and inattentive at home. Today patient in NAD, some dyspnea while taking. Edema improving. AMS has improved Review of Systems Review of Systems: Per HPI/Subjective Physical Exam Constitutional: + ill appearing and + obese Eyes: PERRL, conjunctivae normal, anicteric sclerae ENMT: external ear and nose normal, oropharynx normal Respiratory: no respiratory distress Auscultation: no wheezes Diminished bilateral breath sounds Cardiovascular: Rate/Rhythm: regular rate and regular rhythm Extremities: + edema Venous stasis change Gastrointestinal (Abdomen): normal bowel sounds, soft, nontender, no hepatosplenomegaly Results & Data Results & Data Vital Signs (Past 12 Hours) Vital Signs Temp Pulse Pulse Resp BP Pulse Ox O2 Del Method 12/13/22 02:54 77 12/13/22 02:23 36.6 C 77 18 194/78 H 96 Nasal Cannula 12/13/22 00:40 Nasal Cannula 12/13/22 00:40 36.7 C 68 20 176/69 H 94 Room Air 12/12/22 22:22 72 16 203/109 H 95 Room Air 12/12/22 21:41 72 16 215/86 H 98 Room Air O2 Flow Rate 12/13/22 02:54 12/13/22 02:23 2 12/13/22 00:40 2 12/13/22 00:40 12/12/22 22:22 12/12/22 21:41 Resident Activity Tracking Resident Involvement: Resident Care Provided Care Provided: Adult Hospital Medicine
--- NOTE | 2022-12-13 07:42 | Electrocardiogram Report ---
Test Reason : Blood Pressure : / mmHG Vent. Rate : 070 BPM Atrial Rate : 070 BPM P-R Int : 172 ms QRS Dur : 092 ms QT Int : 392 ms P-R-T Axes : 016 -30 049 degrees QTc Int : 423 ms Normal sinus rhythm Left axis deviation Moderate voltage criteria for LVH, may be normal variant Poor R wave progression, consider anterior [place] vs. lead placement vs. LVH Nonspecific ST and T wave abnormality Abnormal ECG When compared with ECG of 11-NOV-2012 14:52, Nonspecific T wave abnormality now evident in Inferior leads Confirmed by Joshua Lambert ([id number]) on 12/13/2022 7:41:47 AM Referred By: Marcela Thomas Confirmed By:Ralph Lambert
[2022-12-13] MEDS: POTASSIUM CHLORIDE CRTAB 20 MEQ TABCR PO SCH (09:50)
[2022-12-13] MEDS: FUROSEMIDE 40 MG/4 ML VIAL IV SCH ×2 (09:50→21:30)
[2022-12-13] MEDS: FAMOTIDINE 20 MG TAB PO SCH (09:50)
[2022-12-13] MEDS: PANTOprazole 40 MG TAB PO SCH (09:50)
[2022-12-13] MEDS: SUCRALFATE 1 GM/10 ML UDC PO SCH ×4 (09:51→21:30)
[2022-12-13] MEDS: ENOXAPARIN INJ 40 MG/0.4 ML SYR SQ SCH (09:54)
[2022-12-13] MEDS: VENLAFAXINE HCL 50 MG TAB PO SCH ×2 (13:00→18:02)
--- NOTE | 2022-12-13 13:31 | XCELERA ---
[id number]
[2022-12-13] MEDS ORDERED: LORazepam 1 MG TAB PO STA (13:40)
[2022-12-13] MEDS ORDERED: HYDROcodone/ACETAMINOPHEN 10/325 TAB PO PRN (13:46)
[2022-12-13] MEDS ORDERED: LORazepam 1 MG TAB PO SCH (16:00)
--- NOTE | 2022-12-13 17:50 | Billing Data ---
Date of Service December 13, 2022 Coding Level of Care Code 47612 SUB INP/OBS CARE MIN
[2022-12-13] MEDS: HYDROcodone/ACETAMINOPHEN 10/325 TAB PO PRN ×2 (18:01→21:32)
[2022-12-13] MEDS: LORazepam 1 MG TAB PO SCH ×2 (18:01→21:31)
--- NOTE | 2022-12-13 19:43 | Billing Data ---
Date of Service December 13, 2022 Coding Level of Care Code 95355 INT INP/OBS CARE
[2022-12-13] MEDS: ONDANSETRON INJ 2 MG/ML 2 ML VIAL IV PRN (21:32)
[2022-12-14] MEDS: LORazepam 1 MG TAB PO SCH ×6 (03:08→21:05)
[2022-12-14] MEDS: HYDROcodone/ACETAMINOPHEN 10/325 TAB PO PRN ×5 (04:52→21:06)
[2022-12-14 06:29] LABS: Base Excess ABG 7.8 mEq/L (-9-1.8); HCO3 ABG 35 mmol/L (19-24); Oxygen Saturation ABG 97.9 % (90-95); PCO2 ABG 61 mmHg (35-46); PO2 ABG 86 mmHg (80-95); pH ABG 7.37 (7.35-7.45)
[2022-12-14 06:32] LABS: Allen Test Pos (Pos)
[2022-12-14 06:36] LABS: Hematocrit (blood only) 35.2 % (37.0-47.0); Hemoglobin 10.9 g/dl (12.0-16.0); Mean Corpuscular Hemoglobin 24.5 pg (25.0-34.0); Mean Corpuscular Volume 79.3 fL (80.0-100.0); Mean Platelet Volume 10.2 fL (9.4-12.4); Platelet Count 327 K/uL (130-400); RDW Coefficient of Variation 16.7 % (11.5-14.5); RDW Standard Deviation 47.1 fL (36.4-46.3); Red Blood Count 4.44 M/uL (4.20-5.40); White Blood Count 7.72 K/ul (4.8-10.8)
--- NOTE | 2022-12-14 07:09 | Hospitalist Progress Note ---
Date of Service December 14, 2022 Assessment & Plan (1) Fluid overload: (2) Altered mental status: (3) Physical deconditioning: (4) Hypertension: (5) Anxiety: (6) Chronic back pain: (7) Depression: (8) Post traumatic stress disorder: (9) GERD (gastroesophageal reflux disease): Plan Fluid overload Dyspnea on exertion -Progressive dyspnea, worsening peripheral edema and weight gain with noted mild elevation of BNP and CXR findings suggestive of hypervolemia -Suspect this may represent CHF exacerbation (unclear trigger) vs progressive deconditioning, chronic venous stasis and uncontrolled PEEWEE/OHS (there is apparently a history of PEEWEE diagnosis in past per but never started treatment with CPAP) vs restrictive lung disease CRX: vascular congestion PFTs from 2019: Restrictive pattern -Compression stockings ordered Echo: grade 1 diastolic dysfunction - Lasix 40 mg IV BID -Continue KCl supplementation while on diuresis -currently on nasal cannula at 2L, some dyspnea while taking - Edema improving, Cr 0.56 Altered mental status - increased lethargy and word-finding difficulty at admission -Low suspicion for acute neurology injury -metabolic encephalopathy from fluid overload/possible CHF exacerbation vs sedation effect from her multiple psychotropic medications -hold psychotropic and sedative medications on admission: Abilify, Xanax, Valium, Ativan, Remeron -Improved mental status: Ativan was restarted for spasticity -Today fully oriented Physical deconditioning: - Multiple poorly controlled comorbidities -PT/OT Chronic back pain: -Holding home [place] due to AMS at admission -Chronic use of [place], restarted due to concern of withdrawal and improvement on mental status. -Tylenol PRN Hypertension: - -Suspected HTN urgency in outpatient office and noted BP elevation to 198/108 in ER -No symptoms, denied headache -Deferring PRN antihypertensive for now -Seemingly not on any antihypertensives as outpatient -Monitor BP, anticipate some reduction as diuresis continues Anxiety - Significant Anxiety on ER, refers treating on leaving AMA -Ativan restarted Chronic back pain: -Holding home [place] due to AMS -Reportedly on Valium and lorazepam for spasticity, holding as above -Tylenol PRN in interim Depression: -Continue Effexor Post traumatic stress disorder: -Continue Effexor GERD (gastroesophageal reflux disease): -Continue omeprazole, famotidine, carafate FENGI: Low salt, fluid restriction 1500 mL Code status: Full DVT prophylaxis: Lovenox Isolation: None Disposition: Medical/surgical with telemetry Admission and Anticipated Discharge Date Admission Date: December 12, 2022 Supervising Physician Co-Signing Physician Notes I personally examined the patient and verified all singh points of history and exam, discussed case, and agree with decision making with Dr Ronaldo Mccloud Breathing feels better, but still on oxygen. Extensive discussions with patient and . Vitals noted, in general she is awake and alert pleasant no distress. HEENT normocephalic atraumatic mucous membranes moist. Lungs show faint scattered rales to maybe a third [address] way up no rhonchi no wheezes good effort. Skin shows no rashes no pallor or icterus. Hypoxiaappears to be related to acute HFpEFseems to be improving, breathing is better, but she does still have rales and is still on 2 L, and her blood pressure/creatinine show there is still plenty of room for further diuresiscontinue Lasix 40 IV twice daily, hopefully wean oxygen. (We did discuss that if she looks as dry as we can get with diuretics, but she still is requiring oxygen, it is possible that her poor air movement has also led to a need for chronic O2, but we would get there by exclusion.) Once she is adequately diuresed, would add beta-karl and PHAN/ARB hypercapnia/hypoventilationPFTs from 2018 showed a restrictive pattern, ABG th is morning showed a PCO2 of 61. Probably a combination of OHS and neuromuscular disease, a little bit hard to tell how much is each. Would likely benefit from BiPAP. Given the complexity of her situation, and the need to try to move treatment forward at a pace faster than the outpatient world is likely able to accommodate, will ask pulmonary to see her to assist in teasing apart the factors driving her restrictive lung disease, as well as to help facilitate BiPAP/etc. for treatment. Mental fogrelates starting around the same time that she started Abilify. This has been on hold, will continue to hold for now. Definitely will need close outpatient follow-up, given that the Abilify seems to have been started for worsening anxiety, and we discussed that stopping the Abilify may help with the mental fog but will potentially allow rebound anxiety. Venous stasissome of her edema is certainly venous stasis, although her acute HFpEF precipitated at some. We discussed movement/compression as being more effective than diuretics for this part of her problem Chronic muscle contracturesit appears that she has arrived at her chronic regimen of significant amounts of benzodiazepines and narcotics circuitously but after what appears to have been trying the "right approach" in multiple ways and failing before settling into this regimen. Obviously over the long-term as an outpatient if we are able to affect a safer regimen of pain control and contracture management, this would be of benefit, but at the same time it does appear that most conventional approaches were tried before ending up with her current regimen. DVT prophylaxisLovenox has a friend who is a reiki practitionernoted that this could be helpful in a complementary way particularly as it relates to any amount of her restrictive lung disease that is neuromuscular, and to venous/lymphatic fluid movementand definitely did not feel that it would be an adverse impact (i.e. let her know that it was okay to continue) Subjective Pt is 67 yo F with PMH anxiety, chronic back pain, depression, PTSD, GERD, HTN, PEEWEE presenting with edema and dyspnea. Patient with progressive worsening edema and dyspnea causing concern for possible CHF/ fluid overload. Patient had been hypoxia O2 80s and elevated BP, lethargic and inattentive at home. Today patient in NAD, some dyspnea while taking. Edema improving. AMS has improved Review of Systems Review of Systems: Per HPI/Subjective Physical Exam Constitutional: + ill appearing and + obese Eyes: PERRL, conjunctivae normal, anicteric sclerae ENMT: external ear and nose normal, oropharynx normal Respiratory: no respiratory distress Auscultation: no wheezes Cardiovascular: Rate/Rhythm: regular rate and regular rhythm Extremities: + edema Gastrointestinal (Abdomen): normal bowel sounds, soft, nontender, no hepatosplenomegaly Results & Data Results & Data Vital Signs (Past 12 Hours) Vital Signs Temp Pulse Pulse Resp BP Pulse Ox O2 Del Method 12/14/22 04:27 36.5 C 71 20 175/105 H 96 Nasal Cannula 12/13/22 22:56 77 12/13/22 22:56 36.6 C 78 20 190/92 H 94 Nasal Cannula 12/13/22 21:59 Nasal Cannula 12/13/22 19:40 36.9 C 85 18 195/98 H 96 Nasal Cannula O2 Flow Rate 12/14/22 04:27 2 12/13/22 22:56 12/13/22 22:56 2 12/13/22 21:59 2 12/13/22 19:40 2 Resident Activity Tracking Resident Involvement: Resident Care Provided Care Provided: Adult Hospital Medicine
[2022-12-14 07:14] LABS: Albumin Globulin Ratio 1.1 (0.9-2); Albumin Level 3.5 gm/dl (3.4-5.0); BUN Creatinine Ratio 23.2 (10-20); Bilirubin,Total 0.7 mg/dl (0.2-1.0); Calcium 8.3 mg/dl (8.6-10.3); Creatinine Clr Calc Pharmacy 110.7 ml/min; Est GFR (African American) 110.3 ml/min; Est GFR (Non-African American) 95.1 ml/min; Globulin 3.2 gm/dl (2.5-4.0); Potassium 3.3 mmol/L (3.5-5.1); Total Protein 6.7 gm/dl (6.0-8.3)
[2022-12-14] MEDS: POTASSIUM CHLORIDE CRTAB 20 MEQ TABCR PO SCH (08:07)
[2022-12-14] MEDS: PANTOprazole 40 MG TAB PO SCH (08:07)
[2022-12-14] MEDS: ENOXAPARIN INJ 40 MG/0.4 ML SYR SQ SCH (08:07)
[2022-12-14] MEDS: SUCRALFATE 1 GM/10 ML UDC PO SCH ×4 (08:07→21:04)
[2022-12-14] MEDS: VENLAFAXINE HCL 50 MG TAB PO SCH ×3 (08:07→17:50)
[2022-12-14] MEDS: FAMOTIDINE 20 MG TAB PO SCH (08:08)
[2022-12-14] MEDS: FUROSEMIDE 40 MG/4 ML VIAL IV SCH ×2 (08:08→21:03)
--- NOTE | 2022-12-14 19:38 | Billing Data ---
Date of Service December 14, 2022 Coding Level of Care Code 79040 SUB INP/OBS CARE MIN
[2022-12-14] MEDS ORDERED: POTASSIUM CHLORIDE CRTAB 20 MEQ TABCR PO STA (19:45)
[2022-12-14] MEDS ORDERED: SODIUM CHLORIDE 0.65% NA SOLN 45 ML (OCEAN) PRN (20:20)
[2022-12-15] MEDS: LORazepam 1 MG TAB PO SCH ×6 (03:10→21:26)
[2022-12-15] MEDS: HYDROcodone/ACETAMINOPHEN 10/325 TAB PO PRN ×5 (05:39→22:00)
[2022-12-15] MEDS ORDERED: ARTIFICIAL TEARS OPB PRN (06:33)
[2022-12-15 06:40] LABS: Hematocrit (blood only) 37.3 % (37.0-47.0); Hemoglobin 11.4 g/dl (12.0-16.0); Mean Corpuscular Hemoglobin 24.3 pg (25.0-34.0); Mean Corpuscular Hgb Conc 30.6 g/dL (32.0-36.0); Mean Corpuscular Volume 79.4 fL (80.0-100.0); Mean Platelet Volume 10.1 fL (9.4-12.4); Platelet Count 346 K/uL (130-400); RDW Coefficient of Variation 16.5 % (11.5-14.5); RDW Standard Deviation 47.2 fL (36.4-46.3); White Blood Count 8.01 K/ul (4.8-10.8)
--- NOTE | 2022-12-15 07:07 | Hospitalist Progress Note ---
Date of Service December 15, 2022 Assessment & Plan (1) Fluid overload: (2) Altered mental status: (3) Physical deconditioning: (4) Hypertension: (5) Anxiety: (6) Chronic back pain: (7) Depression: (8) Post traumatic stress disorder: (9) GERD (gastroesophageal reflux disease): Plan Pt is 67 yo f with a pertinent past med hx of HTN and PEEWEE presenting with edema and dyspnea who presented on 12/12 for progressive edema and dyspnea causing and hypoxia with O2 sat in the 80s, elevated BP, and AMS. #HFpEF - Progressive dyspnea, worsening peripheral edema and weight gain with noted mild elevation of BNP and CXR findings suggestive of hypervolemia, - echo at this admission showed EF 55-60% - will continue lasix 40 mg IV but once today - Continue KCl supplementation while on diuresis - will track I+Os through bedpan (pt declined carter or purewick) - if good urine output this evening/overnight, may transition to her po lasix 60 mg - was started on O2 for SOB, will discontinue per protocol #Altered mental status - increased lethargy and word-finding difficulty at admission, low suspicion for acute neuro injury - suspect metabolic encephalopathy from fluid overload/CHF exacerbation vs sedation effect from her multiple psychotropic medications - all psych meds held initially, ativan restarted to avoid benzo withdrawal - mental status has improved, now alert and oriented - continue chronic ativan regime #Anemia, microcytic - Hbg 11.4, no hx anemia - will order iron studies for tomorrow #Physical deconditioning - Multiple poorly controlled comorbidities - PT/OT #Chronic back pain - continue home norco - Tylenol PRN #Hypertension - pt symptomatic, BP 130-160s systolic today - deferring PRN antihypertensive for now #Anxiety - Significant Anxiety on ER, refers treating on leaving AMA - continue ativan #Depression - Continue Effexor #Post traumatic stress disorder - Continue Effexor #GERD (gastroesophageal reflux disease): -Continue omeprazole, famotidine, carafate FENGI: Low salt, fluid restriction 1500 mL Code status: Full DVT prophylaxis: Lovenox Isolation: None Admission and Anticipated Discharge Date Admission Date: December 12, 2022 Supervising Physician Co-Signing Physician Notes Attending attestation Pt seen and examined in concert with Dr. Marin. In agreement with the documented findings as noted in the resident documentation with any exceptions or additions as noted here. Improvement in bilateral LE swelling and SOB subjectively. Did have an asymptomatic run of tachycardia overnight which may have obscured p waves on EKG. On examination, S1/S2 nl RRR no MCG. Decreased BS at bases bilaterally without rales appreciated. Abd NT/ND BS+ve HFpEF with acute fluid overload - taper to daily IV furosemide and monitor I/O (pt declines carter/purewick). Monitor Cr daily and limit fluid intake. Tachycardia - continue tele monitoring and obtain EKG with any new tachycardia as may be contributory to fluid status Lethargy/Word finding difficulties - resolved, patinet at baseline per spouse. D/C abilify. Would avoid sedating medication henceforth. Else see resident documentation as noted. Subjective Pt is 67 yo f with a pertinent past med hx of HTN and PEEWEE presenting with edema and dyspnea who presented on 12/12 for progressive edema and dyspnea causing and hypoxia with O2 sat in the 80s, elevated BP, and AMS. Today, pt states that she is feeling okay overall. She notes that she is frustrated that she does not have an appropriate bedside commode to go to the bathroom. She notes having muscle spasms and issues with her sacrum that is w orsened by the difficult bathroom situation. She also notes that she was having spasms of her arms, legs, and back in the morning, but that when she was seen she feels a bit better. She also notes the rash under her R breast is still very itchy. Otherwise, she has no further complaints today. Telemetry visited. They note a run of tachycardia around 7 pm yesterday that lasted 2 hours in total. Tele reviewed and appears to be sinus tachycardia. Pt was asymptomatic at the time, no chest pain, SOB, or palpitations. She states at the time she was chatting with the nurses and laughing a lot and that she had felt fine. Review of Systems Review of Systems: Constitutional: denies fever, chills, Cardio: denies chest pain, Resp: denies shortness of breath, Physical Exam Physical Exam: General:Alert and oriented, no acute distress, HEENT: Normocephalic, moist oral mucosa, Cardio: Regular rate and rhythm, b/l LE edema noted with some discoloration of the skin of the shins without warmth or fluctuance Resp:Lungs clear to auscultation b/l, no rhonchi Skin: Warm, pink, dry, Psych: Mood-affect congruence. Results & Data Results & Data Vital Signs (Past 12 Hours) Vital Signs Temp Pulse Pulse Resp BP Pulse Ox O2 Del Method 12/15/22 06:47 36.6 C 58 L 18 135/83 96 Nasal Cannula 12/15/22 00:47 36.9 C 69 18 153/80 H 97 Nasal Cannula 12/14/22 23:22 68 12/14/22 19:37 Nasal Cannula 12/14/22 19:37 37.1 C 123 H 20 174/95 H 94 Nasal Cannula O2 Flow Rate 12/15/22 06:47 2 12/15/22 00:47 2 12/14/22 23:22 12/14/22 19:37 2 12/14/22 19:37 2 Resident Activity Tracking Resident Involvement: Resident Care Provided Care Provided: Adult Hospital Medicine
[2022-12-15 07:12] LABS: Albumin Globulin Ratio 1.1 (0.9-2); Albumin Level 3.7 gm/dl (3.4-5.0); BUN Creatinine Ratio 25.8 (10-20); Bilirubin,Total 0.6 mg/dl (0.2-1.0); Calcium 8.4 mg/dl (8.6-10.3); Creatinine Clr Calc Pharmacy 101.2 ml/min; Est GFR (African American) 106.6 ml/min; Globulin 3.3 gm/dl (2.5-4.0); Potassium 3.6 mmol/L (3.5-5.1)
[2022-12-15] MEDS: SUCRALFATE 1 GM/10 ML UDC PO SCH ×4 (07:33→21:26)
[2022-12-15] MEDS: FUROSEMIDE 40 MG/4 ML VIAL IV SCH (09:33)
[2022-12-15] MEDS: POTASSIUM CHLORIDE CRTAB 20 MEQ TABCR PO SCH (09:34)
[2022-12-15] MEDS: PANTOprazole 40 MG TAB PO SCH (09:34)
[2022-12-15] MEDS: FAMOTIDINE 20 MG TAB PO SCH (09:34)
[2022-12-15] MEDS: VENLAFAXINE HCL 50 MG TAB PO SCH ×3 (09:35→16:39)
[2022-12-15] MEDS: ENOXAPARIN INJ 40 MG/0.4 ML SYR SQ SCH (09:35)
--- NOTE | 2022-12-15 10:28 | Pulmonary Consultation ---
Date of Consultation December 15, 2022 Assessment & Plan (1) Shortness of breath: Multifactorial related to obesity and acute decompensated diastolic heart failure. Shortness of breath improving with diuresis. Chest x-ray personally reviewed from 12/12/2022 which reveals improvement in CHF. Mild cardiomegaly and vascular congestion noted. (2) Obesity hypoventilation syndrome: Patient appears to have obesity hypoventilation syndrome based on her elevated BMI of 48, elevated serum bicarbonate, hypercapnia and hypoxemia. She notes that she was previously trialed on CPAP about 4 to 5 years ago for PEEWEE, but was intolerant due to a poorly fitting mask. She is willing to try BiPAP while in the hospital. An order has been placed. If she tolerates BiPAP, would recommend that she be discharged home on AVAPS and follow-up with sleep medicine. She also has numerous sedating medications listed on her medication profile which may contribute to hypercapnia and decrease her respiratory drive. (3) Hypoxemia: Secondary to OHS and acute decompensated heart failure. Continue to wean oxygen as able. Maintain saturations above 89%. She may need supplemental oxygen upon discharge. Plan Thank you for allowing me to participate in care of the patient. We will continue to follow with you. Please call with questions. History of Present Illness Reason for Consultation: Obesity hypoventilation syndrome Attending Physician: Joshua Rao MD History of Present Illness 67-year-old female with history of anxiety disorder, H1 N1, GERD, cerebral palsy, morbid obesity and depression presented to the hospital 12/12/2022 due to shortness of breath and lower extremity edema. Pulmonary was consulted due to hypercapnia identified on her ABG and persistent hypoxemia. Patient notes that she was previously trialed on CPAP, but could not tolerate it due to anxiety and an ill fitting mask. She is currently requiring 2 L of oxygen and saturating in the mid 90s. She denies any significant cough at present, but does endorse shortness of breath with mild exertion. Her mobility is quite limited due to her history of contractures presumably from cerebral palsy. ABG this admission on 12/14/2022 completed on 2 L of oxygen revealed a pH of 7.37, PCO2 of 61 and PO2 of 86. Serum bicarb is 35. She is undergoing IV diuresis for decompensated diastolic heart failure. Echo 12/13/2022 with grade 1 diastolic dysfunction. Normal LV function Allergies Allergy/AdvReac Type Severity Reaction Status Date / Time duloxetine Allergy Severe INCREASES Verified 11/25/22 14:34 MUSCLE SPASMS, UNABLE TO MOVE fentanyl Allergy Severe "I almost Verified 11/25/22 14:34 when they gave it me" fexofenadine Allergy Severe HEART Verified 11/25/22 14:34 PALPITATIONS iodine Allergy Severe RASH, Verified 11/25/22 14:34 BLISTERS, ITCHING latex Allergy Severe RASH, Verified 11/25/22 14:34 BLISTERS povidone-iodine Allergy Severe RASH, Verified 11/25/22 14:34 BLISTERS salmeterol Allergy Severe INCREASE Verified 11/25/22 14:34 SPASMS AND CAN NOT MOVE diazepam Allergy Intermediate FALLS Verified 11/25/22 14:34 ASLEEP AND DROOL adhesive Allergy Mild RASH, Verified 11/25/22 14:34 BLISTERS baclofen Allergy Mild SLEEPY AND Verified 11/25/22 14:34 LEG PAIN cephalexin Allergy Mild NAUSEA, Verified 11/25/22 14:34 FLU-LIKE SYMPTOMS, RASH fluticasone Allergy Mild NOSE BLEEDS Verified 11/25/22 14:34 gabapentin Allergy Mild DIZZINESS Verified 11/25/22 14:34 AND FELL OVER tramadol Allergy Mild RASH & Verified 11/25/22 14:34 ITCHING methadone AdvReac Mild MEMORY Verified 11/25/22 14:34 LOSS, DIZZINESS, NIGHTMARES Home Medications Medication Instructions Recorded Confirmed Type albuterol sulfate 90 mcg/actuation 1 puff inhalation UD PRN Shortness 11/12/18 11/25/22 History aerosol inhaler Of Breath artificial tears(hypromellose) 0.3 1 drp ophthalmic (eye) UD PRN Dry 11/12/18 11/25/22 History % eye drops Eye(S) azelastine 137 mcg (0.1 %) nasal 1 spray intranasal UD PRN Allergy 11/12/18 11/25/22 History spray aerosol Symptoms levalbuterol HCl 1.25 mg/3 mL 1.25 mg inhalation UD PRN 11/12/18 11/25/22 History solution for nebulization Shortness Of Breath lorazepam 2 mg tablet 2 mg PO Q4 09/07/19 11/25/22 History calcium carbonate 500 mg calcium 500 mg PO QAM 11/10/19 11/25/22 History (1,250 mg) tablet (Calcium 500) cholecalciferol (vitamin D3) 25 2,000 mcg PO QAM 11/10/19 11/25/22 History mcg (1,000 unit) tablet (Vitamin D3) omega-3 fatty acids 1,000 mg PO QAM 11/10/19 11/25/22 History famotidine 20 mg tablet (Pepcid AC) 20 mg PO DAILY #30 tabs 11/18/19 11/25/22 Rx hydrocodone 10 mg-acetaminophen 2 tab PO Q4H PRN 03/15/20 11/25/22 History 325 mg tablet nystatin-triamcinolone 100,000 1 applic topical QID PRN Rash 10 11/15/20 11/25/22 Rx unit/g-0.1 % topical cream days #60 grams conjugated estrogens 0.625 mg/gram 0.3125 mg vaginal 3XWK #30 grams 12/03/20 11/25/22 Rx vaginal cream (Premarin) ondansetron 8 mg disintegrating 8 mg PO Q8H PRN Nausea #90 tabs 01/17/21 11/25/22 Rx tablet sucralfate 100 mg/mL oral 5 ml PO QID #420 mL 05/03/21 11/25/22 Rx suspension (Carafate) diazepam 5 mg tablet (Valium) 5 mg PO .COMPLEX PRN anxiety #2 03/12/22 11/25/22 Rx tabs conjugated estrogens 0.45 mg 0.45 mg PO DAILY #30 tabs 04/04/22 11/25/22 Rx tablet (Premarin) TESTOSTERONE MICRO 0.1% See Rx Instructions .Route 1XD 11/12/22 11/25/22 History alprazolam 1 mg disintegrating 1.5 mg PO DAILY PRN Anxiety #30 11/12/22 11/25/22 History tablet tabs aripiprazole 10 mg tablet (Abilify) 10 mg PO DAILY 11/12/22 11/25/22 History furosemide 20 mg tablet 60 mg PO DAILY 11/12/22 11/25/22 History mirtazapine 30 mg tablet 30 mg PO HS 11/12/22 11/25/22 History omeprazole 20 mg capsule,delayed 20 mg PO DAILY Acid Reflux 11/12/22 11/25/22 History release potassium chloride 10 mEq 20 meq PO DAILY 11/12/22 11/25/22 History tablet,extended release venlafaxine 25 mg tablet 75 mg PO DAILY 11/12/22 11/25/22 History Patient History Medical History (Updated 12/15/22 @ 15:07 by Sameer Finn MD) Anxiety Baclofen pump failure Cerebral palsy Chronic back pain Depression GERD (gastroesophageal reflux disease) History of anesthesia reaction pt states that the last time she had an EGD at [facility] they had the blood pressure cuff on the same arm as her IV and she never received enough anesthesia because of this and she was in pain throughout all the whole experience Hypertension Hypoxemia Nerve pain Obesity hypoventilation syndrome Post traumatic stress disorder Restrictive lung disease reason for inhalers/nebulizer Type I CRPS (complex regional pain syndrome) Surgical History (Updated 11/12/22 @ 13:19 by Radha Leal RN) H/O: hysterectomy with unilateral oophorectomy History of appendectomy History of arthroscopy of left knee History of arthroscopy of right knee History of colonoscopy History of esophagogastroduodenoscopy (EGD) History of left hip replacement History of oophorectomy, unilateral right History of tonsillectomy History of tooth extraction History of total left hip replacement S/P endoscopy Family History Father Family history of diabetes mellitus Myocardial infarction Other No family history of adverse response to anesthesia Denies family history of Ovarian cancer Prostate cancer Breast cancer Colorectal cancer Social History (Updated 11/12/22 @ 13:43 by Radha Leal RN) Smoking Status: Former smoker Tobacco Type: Cigarettes Age Started Using Tobacco: 16; Age Quit Using Tobacco: 19; Cigarettes Per Day: 2-3; Second Hand Exposure: Yes (IN THE PAST); Do You Dip or Chew Tobacco: No; Hx Alcohol Use: No Hx Substance Use: Yes Last Used Substance Other:: HAS USED RX MARIJUANA IN PAST (PT WOULD NOT ANSWER CLEARLY/UNSURE IF USING) Preferred Language: Swedish Communication Ability: Effective Visual Impairment: Partially Limited Hearing Ability: Hard of Hearing Court Crier Required: No Beliefs That Will Affect Care: None marital status: Current Living Situation: Spouse Current Living Situation Comment: Lives at home with current occupational status: disabled Feels Safe at Home: Yes Safety Concerns: Feels Safe At This Time Childhood Exposure to Second-Hand Smoke: Yes Diet: regular Diet Comment: [facility], Regularly: Yes Physical Activity Frequency: Does not Exercise Seatbelt Use: always Sunscreen Use: No Assistive Devices: Crutches, Glasses and Wheelchair Review of Systems Review of Systems: All systems reviewed & are unremarkable except as noted in HPI & below Physical Exam Physical Exam: Constitutional: Patient appears to be of their stated age. Patient is in no apparent distress. Patient is obese. Eyes: Pupils are equal round and reactive to light. Conjunctivae are normal. Anicteric sclera. Ears nose, mouth and throat: Deferred Neck: Trachea is midline. Visual inspection is normal. Respiratory: Diminished bilaterally. No wheezes or rales. Cardiovascular: Regular rate and rhythm. No murmurs. No edema. Gastrointestinal: Normal bowel sounds, soft, nontender and nondistended. No hepatosplenomegaly noted. Musculoskeletal: No cyanosis. Patient is able to move all extremities. Strength is 5 out of 5 in the upper and lower extremities. Skin: No rashes, warm dry and intact. Lower extremity wrinkling. Neurologic: No obvious focal neurological deficits seen. Upper extremity c ontractures noted. Psychiatric: Alert and oriented x3 with a euthymic affect. Results & Data Results & Data Vital Signs (Past 12 Hours) Vital Signs Temp Pulse Pulse Resp BP Pulse Ox O2 Del Method 12/15/22 07:55 67 12/15/22 07:51 Nasal Cannula 12/15/22 06:47 36.6 C 58 L 18 135/83 96 Nasal Cannula 12/15/22 00:47 36.9 C 69 18 153/80 H 97 Nasal Cannula 12/14/22 23:22 68 O2 Flow Rate 12/15/22 07:55 12/15/22 07:51 2 12/15/22 06:47 2 12/15/22 00:47 2 12/14/22 23:22 PG Care Time/CCT Total # of Minutes Spent Total Time Spent with Patient: Total time spent is greater than 50% in coordination of care (as documented) at patient's floor/unit and/or counseling patient: Coding Level of Care Code 33364 INT INP/OBS CARE 2/55MIN Diagnoses Shortness of breath R06.02 Obesity hypoventilation syndrome E66.2 Hypoxemia R09.02
[2022-12-15] MEDS: MICONAZOLE NITRATE POWDER 85 GM EXT SCH ×2 (10:32→21:28)
[2022-12-15 15:23] LABS: Appearance Urine Cloudy (Clear); Bacteria Urine Automated Negative (Negative); Bilirubin Urine Negative (Negative); Blood Urine Trace (Negative); Color Urine Yellow; Epithelial Cell Urine Auto >30 /lpf (0-5); Glucose Urine UA Negative (Negative); Ketones Urine Trace (Negative); Leukocyte Esterase Urine 2+ (Negative); Nitrite Urine Negative (Negative); Specific Gravity Urine 1.022 (1.000-1.030); Urobilinogen Urine Negative (Negative); WBC Urine Automated >30 /hpf (0-5); pH Urine 7.5 (4.5-7.5)
[2022-12-15 15:26] LABS: Protein Urine 1+ (Negative)
[2022-12-15] MEDS: ONDANSETRON INJ 2 MG/ML 2 ML VIAL IV PRN (15:55)
[2022-12-15] MEDS: PHENAZOPYRIDINE HCL 100 MG TAB PO PRN (15:56)
[2022-12-15] MEDS ORDERED: cefTRIAXone SODIUM 2,000 MG in DEXTROSE 5 % MINI-B 50 ML IV SCH (16:00)
[2022-12-15] MEDS: SENNA 8.6 MG TAB PO SCH (21:26)
[2022-12-15] MEDS ORDERED: ALPRAZolam 0.5 MG TABLET PO PRN (22:57)
[2022-12-16] MEDS: LORazepam 1 MG TAB PO SCH ×4 (01:59→15:10)
[2022-12-16] MEDS: HYDROcodone/ACETAMINOPHEN 10/325 TAB PO PRN ×4 (01:59→15:10)
--- NOTE | 2022-12-16 06:53 | Hospitalist Progress Note ---
Date of Service December 16, 2022 Assessment & Plan (1) Fluid overload: (2) Altered mental status: (3) Physical deconditioning: (4) Hypertension: (5) Anxiety: (6) Chronic back pain: (7) Depression: (8) Post traumatic stress disorder: (9) GERD (gastroesophageal reflux disease): Plan Pt is 67 yo f with a pertinent past med hx of HTN and PEEWEE presenting with edema and dyspnea who presented on 12/12 for progressive edema and dyspnea causing and hypoxia with O2 sat in the 80s, elevated BP, and AMS. #HFpEF - Progressive dyspnea, worsening peripheral edema and weight gain with noted mild elevation of BNP and CXR findings suggestive of hypervolemia, - echo at this admission showed EF 55-60% - Continue KCl supplementation while on diuresis - pt put out 1L yesterday, so will transition IV lasix to po home dose today - was started on O2 for SOB, discontinue per protocol and will get 2 step anticipating possible discharge today - pt will need outpatient cardiology follow up for HFpEF #Altered mental status - increased lethargy and word-finding difficulty at admission, low suspicion for acute neuro injury - suspect metabolic encephalopathy from fluid overload/CHF exacerbation vs sedation effect from her multiple psychotropic medications - all psych meds held initially, ativan restarted to avoid benzo withdrawal - mental status has improved, now alert and oriented - continue chronic ativan regime - given xanax last night, will discontinue today since pt groggy this morning #UTI - UA appeared infectious, culture pending, pt complained of dysuria yesterday afternoon - pt on ceftriaxone for total of 3 days, started yesterday, will transition to oral cefdinir for discharge #PEEWEE - pt has a prior hx of sleep apnea years ago and had CPAP but mask did not fit right - pulm say her this admission and recommended bipap or home oxygen, 2 step ordered #Anemia, microcytic - Hbg 11.4, no hx anemia - iron level low 31, will hold off on iron in the setting of current infection, but will recommend outpatient iron supplementation #Physical deconditioning - Multiple poorly controlled comorbidities - PT/OT #Chronic back pain - continue home norco - Tylenol PRN #Hypertension - pt symptomatic, BP 130-160s systolic today - deferring PRN antihypertensive for now #Anxiety - Significant Anxiety on ER, refers treating on leaving AMA - continue ativan #Depression - Continue Effexor #Post traumatic stress disorder - Continue Effexor #GERD (gastroesophageal reflux disease): -Continue omeprazole, famotidine, carafate FENGI: Low salt, fluid restriction 1500 mL Code status: Full DVT prophylaxis: Lovenox Isolation: None Admission and Anticipated Discharge Date Admission Date: December 12, 2022 Subjective Pt is 67 yo f with a pertinent past med hx of HTN and PEEWEE presenting with edema and dyspnea who presented on 12/12 for progressive edema and dyspnea causing and hypoxia with O2 sat in the 80s, elevated BP, and AMS. Today, pt appears to be more tired and groggy this morning. She states that she feels fine today and felt like she slept okay. No questions or concerns noted at this tme. Review of Systems Review of Systems: Cardio: denies chest pain, Resp: denies shortness of breath, Physical Exam Physical Exam: General:Alert and oriented, no acute distress, groggy HEENT: Normocephalic, Cardio: Regular rate and rhythm, b/l LE edema again noted Resp:Lungs clear to auscultation b/l, no rhonchi Skin: Warm, pink, dry, Psych: Mood-affect congruence. Results & Data Results & Data Vital Signs (Past 12 Hours) Vital Signs Temp Pulse Pulse Resp BP Pulse Ox O2 Del Method 12/16/22 02:36 36.5 C 62 18 164/73 H 97 Nasal Cannula 12/15/22 23:13 36.7 C 76 18 174/81 H 91 Room Air 12/16/22 00:11 77 12/15/22 22:36 61 14 98 12/15/22 21:52 Nasal Cannula 12/15/22 19:56 36.8 C 73 18 149/76 H 96 Nasal Cannula O2 Flow Rate 12/16/22 02:36 2 12/15/22 23:13 12/16/22 00:11 12/15/22 22:36 2 12/15/22 21:52 2 12/15/22 19:56 2
[2022-12-16 06:54] LABS: Hematocrit (blood only) 35.5 % (37.0-47.0); Hemoglobin 10.9 g/dl (12.0-16.0); Mean Corpuscular Hemoglobin 24.3 pg (25.0-34.0); Mean Corpuscular Hgb Conc 30.7 g/dL (32.0-36.0); Mean Corpuscular Volume 79.1 fL (80.0-100.0); Mean Platelet Volume 10.7 fL (9.4-12.4); Platelet Count 343 K/uL (130-400); RDW Standard Deviation 46.5 fL (36.4-46.3); Red Blood Count 4.49 M/uL (4.20-5.40); White Blood Count 7.98 K/ul (4.8-10.8)
[2022-12-16 07:37] LABS: Albumin Level 3.5 gm/dl (3.4-5.0); BUN Creatinine Ratio 29.7 (10-20); Bilirubin,Total 0.5 mg/dl (0.2-1.0); Calcium 8.5 mg/dl (8.6-10.3); Est GFR (African American) 105.5 ml/min; Globulin 3.4 gm/dl (2.5-4.0); Potassium 3.6 mmol/L (3.5-5.1); Total Protein 6.9 gm/dl (6.0-8.3)
[2022-12-16 07:43] LABS: Ferritin 8.2 ng/ml (8-388)
[2022-12-16] MEDS: SUCRALFATE 1 GM/10 ML UDC PO SCH ×3 (08:45→12:45)
[2022-12-16] MEDS ORDERED: FUROSEMIDE 40 MG/4 ML VIAL IV SCH (09:00)
[2022-12-16] MEDS ORDERED: FUROSEMIDE 20 MG TAB PO SCH (09:00)
[2022-12-16] MEDS: SENNA 8.6 MG TAB PO SCH (09:12)
[2022-12-16] MEDS: POTASSIUM CHLORIDE CRTAB 20 MEQ TABCR PO SCH (09:13)
[2022-12-16] MEDS: PANTOprazole 40 MG TAB PO SCH (09:13)
[2022-12-16] MEDS: FAMOTIDINE 20 MG TAB PO SCH (09:13)
[2022-12-16] MEDS: VENLAFAXINE HCL 50 MG TAB PO SCH ×2 (09:14→12:44)
[2022-12-16] MEDS: PHENAZOPYRIDINE HCL 100 MG TAB PO PRN (09:14)
[2022-12-16] MEDS: MICONAZOLE NITRATE POWDER 85 GM EXT SCH (09:16)
[2022-12-16] MEDS: ENOXAPARIN INJ 40 MG/0.4 ML SYR SQ SCH (09:16)
--- NOTE | 2022-12-16 13:00 | Discharge Summary ---
Date of Service December 16, 2022 Admission HPI Per Admitting Provider Pt is 67 yo F with PMH anxiety, chronic back pain, depression, PTSD, GERD, HTN, PEEWEE presenting with edema and dyspnea. Pt referred to ED by PCP at clinic visit today given worsening edema and dyspnea causing concern for possible CHF/fluid overload. Was also seen on 11/20 and recommended ED evaluation but pt declined, Lasix increased to 40 mg BID. CXR significant for pulmonary edema b/l and BMP demonstrating hypercapnia. Pt has been having headache, hypoxia to O2 80s% and elevated BP 201/102 at home and informed clinic of this, advised to go to ED during nursing triage and became argumentative. History given by both patient and with significant clarification and corroboration by in private. Apparently, pt has been having ongoing leg swelling, weight gain (unspecified amount though 5+ lbs), dyspnea over past several weeks. She went to [facility] ER for this about 1 month prior and was discharged with instruction to continue daily compression hose. She reportedly had some psychiatric symptoms for which [facility] ER physicians considered 302 but permitted her to be discharged after close outpatient psychiatric f/u was arranged with [place] locally. Psychiatry has reportedly made medication changes but details unknown. Pt has been having increasing word finding difficulty over past few weeks with an abrupt increase in this as of 12/11. She has been having associated lethargy and inattention at home. Has not had any particular Pt arrived to ER with BP 198/108. Initial evaluation significant for Hgb 11.4, VBG pH 7.42 and pCO2 57, CO2 33, BNP 104, CXR with b/l opacities, pulmonary vascular congestion and mild pulmonary edema b/l (though improved from previous CXR). EKG unremarkable. ER interventions include Lasix 40 mg IV. At present, pt reports frustration being in ER and general discomfort. Insisted on receiving anxiety medication. Denies any new complaints, states dyspnea is ongoing but mildly improved after Lasix. Admission Exam Per Admitting Provider General: ill-appearing, agitated, obese HEENT: PERRL, conjunctivae clear without injection, anicteric sclerae, moist mucous membranes, clear oropharynx without exudate or erythema Neck: supple, trachea midline, no thyromegaly, no JVD, no cervical lymphadenopathy CV: RRR, normal S1 and S2, no murmurs Resp: Diminished with coarse breath sounds diffusely, no increased work of breathing, no wheezes Abd: Soft, nontender, nondistended, no guarding or rebound, no hepatosplenomegaly Neuro: AOx3, no focal motor or sensory deficits, though pt distracted at times with some speech latency Skin: mild erythema and venous stasis changes of b/l LE Ext: 3+ b/l LE pitting edema with some mild erythema and warmth but nontender Principal Diagnosis Heart Failure with Preserved Ejection Fraction, Altered Mental Status, Multiple sedating medication use chronically Discharge Exam General:Alert and oriented, no acute distress, groggy HEENT: Normocephalic, Cardio: Regular rate and rhythm, b/l LE edema again noted with erythema of the shins Resp:Lungs clear to auscultation b/l, no rhonchi Skin: Warm, pink, dry, Psych: Mood-affect congruence. Discharge Data Allergies Allergy/AdvReac Type Severity Reaction Status Date / Time duloxetine Allergy Severe INCREASES Verified 11/25/22 14:34 MUSCLE SPASMS, UNABLE TO MOVE fentanyl Allergy Severe "I almost Verified 11/25/22 14:34 when they gave it me" fexofenadine Allergy Severe HEART Verified 11/25/22 14:34 PALPITATIONS iodine Allergy Severe RASH, Verified 11/25/22 14:34 BLISTERS, ITCHING latex Allergy Severe RASH, Verified 11/25/22 14:34 BLISTERS povidone-iodine Allergy Severe RASH, Verified 11/25/22 14:34 BLISTERS salmeterol Allergy Severe INCREASE Verified 11/25/22 14:34 SPASMS AND CAN NOT MOVE diazepam Allergy Intermediate FALLS Verified 11/25/22 14:34 ASLEEP AND DROOL adhesive Allergy Mild RASH, Verified 11/25/22 14:34 BLISTERS baclofen Allergy Mild SLEEPY AND Verified 11/25/22 14:34 LEG PAIN cephalexin Allergy Mild NAUSEA, Verified 11/25/22 14:34 FLU-LIKE SYMPTOMS, RASH fluticasone Allergy Mild NOSE BLEEDS Verified 11/25/22 14:34 gabapentin Allergy Mild DIZZINESS Verified 11/25/22 14:34 AND FELL OVER tramadol Allergy Mild RASH & Verified 11/25/22 14:34 ITCHING methadone AdvReac Mild MEMORY Verified 11/25/22 14:34 LOSS, DIZZINESS, NIGHTMARES Consultations 12/12/22 21:07 ED Decision to Admit Stat 12/14/22 21:24 Consult Pulmonology Routine Hospital Course (1) Fluid overload: (2) Altered mental status: (3) Physical deconditioning: (4) Hypertension: (5) Anxiety: (6) Chronic back pain: (7) Depression: (8) Post traumatic stress disorder: (9) GERD (gastroesophageal reflux disease): Plan Pt is 67 yo f with a pertinent past med hx of HTN and PEEWEE presenting with edema and dyspnea who presented on 12/12 for progressive edema and dyspnea causing and hypoxia with O2 sat in the 80s, elevated BP, and AMS. #HFpEF - Progressive dyspnea, worsening peripheral edema and weight gain with noted mild elevation of BNP and CXR findings suggestive of hypervolemia, - echo at this admission showed EF 55-60% - Continue KCl supplementation while on diuresis - pt put out 1L yesterday, so will transition IV lasix to po home dose today - was started on O2 for SOB, discontinue per protocol, 2 step obtained and pt refused to get up but with activity at rest sitting she sat 97% on RA - pt will need outpatient cardiology follow up for HFpEF #Tachycardia, sinus - pt noted to have an episode of tachycardia Thursday night, then several episodes today in the afternoon that last only 30 seconds or so - pt was asymptomatic for the episodes, which seem to occur with physical activity and pt noted to be very deconditioned - telemetry reviewed, appeared to be sinus tachycardia with presence of p waves sometimes obscured by T waves, last too short to reliable capture by EKG - recommend she have close outpatient follow-up and consider 24 hr Holter monitor #Altered mental status - increased lethargy and word-finding difficulty at admission, low suspicion for acute neuro injury - suspect metabolic encephalopathy from fluid overload/CHF exacerbation vs sedation effect from her multiple psychotropic medications - all psych meds held initially, ativan restarted to avoid benzo withdrawal - mental status has improved, now alert and oriented - continue chronic ativan regime - given xanax last night, will discontinue today since pt groggy this morning #UTI - UA appeared infectious, culture pending, pt complained of dysuria yesterday afternoon - pt on ceftriaxone for total of 3 days, started yesterday, will transition to oral cefdinir for discharge #PEEWEE - pt has a prior hx of sleep apnea years ago and had CPAP but mask did not fit right - pulm say her this admission and recommended bipap or home oxygen, 2 step ordered #Anemia, microcytic - Hbg 11.4, no hx anemia - iron level low 31, will hold off on iron in the setting of current infection, but will recommend outpatient iron supplementation after completion of antibiotics #Physical deconditioning - Multiple poorly controlled comorbidities - PT/OT #Chronic back pain - continue home norco - Tylenol PRN #Hypertension - pt symptomatic, BP 130-160s systolic today - deferring PRN antihypertensive for now #Anxiety - Significant Anxiety on ER, refers treating on leaving AMA - continue ativan #Depression - Continue Effexor #Post traumatic stress disorder - Continue Effexor #GERD (gastroesophageal reflux disease): -Continue omeprazole, famotidine, carafate FENGI: Low salt, fluid restriction 1500 mL Code status: Full DVT prophylaxis: Lovenox Isolation: None Total Time Total Time Spent Total Time Spent (In Minutes): As per attending attestation. Discharge Plan Discharge Items Patient Disposition: Home - Self-Care Reason For Visit: WORSENING EDEMA, DYSPNEA- POSSIBLE CHF Discharge Diagnosis: Heart Failure with Preserved Ejection Fraction, Altered Mental Status, Multiple sedating medication use chronically Activity: Per Instructions section Non-emergency contact: Primary Care Provider Call non-emergency contact if: you have any medication questions and your temperature is above 101.5 Follow-up/Referrals: Marcela Thomas MD [Primary Care Provider] - (PLEASE CALL YOUR PRIMARY CARE PROVIDER TO SCHEDULE A HOSPITAL FOLLOW-UP DISCHARGE APPOINTMENT WITHIN 7-10 DAYS.) Diet: Low Sodium (2gm) Addtl Attending Provider Instructions: You were admitted for altered mental status and heart failure exacerbation. We discontinued all of your psychiatric medications and restarted your Ativan, which seemed to greatly improve alertness. We also treated you with aggressive d iuretics to remove extra fluid from your body. While you were here, we also started you on an antibiotic for a urinary tract infection (UTI). Your symptoms have improved and we feel it is safe for you to return home at this time. Medications: Your medication list has been reviewed and reconciled upon discharge to ensure accuracy and continuity of care. An updated list of all your medications is included with your hospital discharge paperwork. Please review this list closely, and make note of any changes. We sent a new medication called Cefdinir to your pharmacy. Take Cefdinir 300 mg 1 time tonight and two times a day tomorrow. This is your antibiotic for your urinary tract infection. The day after your antibiotic is finished, please also start an iron supplement once daily. You can get iron over the counter at any pharmacy. PLEASE STOP TAKING: Xanax and Abilify. Please follow-up with your primary care doctor or psychiatrist about restarting these medications. If you have any issues filling these prescriptions, please call [phone] and ask to leave a message for Dr. Marin. Take your medications as instructed; do not skip a dose of your medicines. Make sure all of your doctors know every medicine you are taking (including [id number] medicines, vitamins, and supplements). Call your primary care provider before taking any new medicines (including over- the-counter medicines, vitamins, and supplements), because some of these may interact with your current medications, or may make your symptoms worse. Tell your primary care provider if you cannot afford your medications. Activity: You can do normal everyday activities as your body allows. Take rest breaks if you feel tired. Do not overexert. Stop activity if you have pain, shortness of breath or feel dizzy. Weight: It is important for you to monitor your daily weights. Weigh yourself every morning using the same scale. Wear the same amount of clothing each time, without anything in your pockets. Keep a log of your daily weights, and bring this log with you every time you see your primary care physician, or any other doctor. Call your primary care physician if you gain more than 2-3 pounds in 1-2 days. Diet: Follow a low sodium (salt) diet. We recommend limiting your sodium intake to under 2000mg per day. Choose foods and drinks with low or no salt. Remove the salt shaker from your table at home. We also recommend limiting your daily fluid intake to 1800mL (60oz) in order to help your body balance fluids. Do not drink excessive beer, alcohol, or wine. If you are struggling with these restrictions, or need additional help incorporating healthy habits into your daily life, please contact your primary care provider. Follow-up appointments: Make an appointment with your primary care physician within one week of discharge. A copy of this summary will be sent to them. Every time you see your primary care physician, or any other doctor, bring your medication list, a list of questions, and your recent weights. Please also follow-up with sleep medicine for your sleep apnea. Please also follow-up with cardiology regarding your new diagnosis of heart failure with preserved ejection fraction. Please also make a follow-up appointment with your psychiatrist to talk about restarting your Xanax or Abilify, or using other medications to manage your conditions. CONTACT YOUR PRIMARY CARE PROVIDER if you experience any of the following: Shortness of breath or difficulty breathing Swelling of your feet, ankles, hands or abdomen Feeling tired with normal activity or experiencing dizziness or fainting Difficulty following your treatment plan, or difficulty taking medications CALL 911 OR GO TO THE EMERGENCY DEPARTMENT if you experience any of the following: Severe abdominal pain or nausea/vomiting Severe chest pain, or chest pain that radiates (moves) to your jaw or arm Sudden, severe shortness of breath or difficulty breathing Thank you for allowing us to participate in your care. Pending Studies at Discharge: No Stand-Alone Forms: [facility] Medications and DC Order Prescriptions: New cefdinir 300 mg capsule 300 mg PO BID Qty: 3 0RF Rx Instructions: Please take 1 pill the night of discharge and take the remaining two in the morning and evening the next day. Continued furosemide 20 mg tablet 60 mg PO DAILY omeprazole 20 mg capsule,delayed release(DR/EC) 20 mg PO DAILY TESTOSTERONE MICRO 0.1% See Rx Instructions .ROUTE 1XD Dose Instruction: APPLY 1ML (1MG) TOPICALLY TWICE DAILY] Rx Instructions: APPLY 1ML (1MG) TOPICALLY TWICE DAILY 1 time daily; famotidine [Pepcid AC] 20 mg tablet 20 mg PO DAILY Qty: 30 2RF Patient Comments: TAKES QPM nystatin-triamcinolone 100,000-0.1 unit/g-% cream 1 applic TOP QID PRN (Reason: Rash) 10 Days Qty: 60 1RF Premarin 0.625 mg/gram cream 0.3125 mg vaginal 3XWK Qty: 30 3RF Premarin 0.45 mg tablet 0.45 mg PO DAILY Qty: 30 11RF lorazepam 2 mg tablet 2 mg PO Q4 hydrocodone-acetaminophen 10-325 mg tablet 2 tab PO Q4H PRN sucralfate [Carafate] 100 mg/mL suspension 5 ml PO QID Qty: 420 2RF Rx Instructions: swish in mouth and swallow; use after food/drink ondansetron 8 mg tablet,disintegrating 8 mg PO Q8H PRN (Reason: Nausea) Qty: 90 1RF mirtazapine 30 mg tablet 30 mg PO HS potassium chloride 10 mEq tablet extended release 20 meq PO DAILY artificial tears(hypromellose) 0.3 % drops 1 drp OP UD PRN (Reason: Dry Eye(S)) albuterol sulfate 90 mcg/actuation HFA aerosol inhaler 1 puff inhalation UD PRN (Reason: Shortness Of Breath) azelastine 137 mcg (0.1 %) aerosol,spray 1 spray intranasal UD PRN (Reason: Allergy Symptoms) levalbuterol HCl 1.25 mg/3 mL solution for nebulization 1.25 mg inhalation UD PRN (Reason: Shortness Of Breath) calcium carbonate [Calcium 500] 500 mg calcium (1,250 mg) Tablet 500 mg PO QAM omega-3 fatty acids Capsule 1,000 mg PO QAM cholecalciferol (vitamin D3) [Vitamin D3] 25 mcg (1,000 unit) Tablet 2,000 mcg PO QAM venlafaxine 25 mg tablet 75 mg PO DAILY Rx Instructions: 1 a day for 7 days, 2 a day for 7 days and then 3/day Discontinued aripiprazole [Abilify] 10 mg tablet 10 mg PO DAILY diazepam [Valium] 5 mg tablet 5 mg PO .COMPLEX PRN (Reason: anxiety) Qty: 2 0RF Rx Instructions: 5 mg PO TAKE 1 TABLET 1 HOUR PRIOR TO MRI, MAY REPEAT AT THE TIME OF MRI PRN; alprazolam 1 mg tablet,disintegrating 1.5 mg PO DAILY PRN (Reason: Anxiety) Qty: 30 Discharge Orders: Discharge Order- CHF (Routine); Ordered 12/16/22 Ordered By: Rekha Marin Admission Data Admit Date/Time: 12/12/22 21:35 Attending Provider: Joshua Rao Admit Provider: Wilfred Murguia Primary Care Provider: Marcela Thomas Other Providers: Renato Kennedy ; Sameer Finn ; Ana Maria Lombardo Supervising Physician Co-Signing Physician Notes Attending attestation Pt seen and examined in concert with Dr. Marin. In agreement with the documented findings as noted in the resident documentation with any exceptions or additions as noted here. Continued to decline full ambulatory pulse O2 testing b/c of diminished reported baseline at home but tolerated what testing was completed well. Still somewhat somnolent appearing after Xanax overnight but improved overall. On examination, S1/S2 nl RRR no MCG. CTAB. Abd NT/ND BS+ve. 1+ pitting edema to the midshin bilaterally HFpEF w/ resolved fluid overload - return to furosemide 60mg with routine home weight checks, low sodium diet and close monitoring. Tachycardia - instance of tachycardia, sinus, in hospital on tele without repeat but would obtain EKG if repeated instance occurs Delirium 2/2 polypharmacy - improved w/ holding abilify and Xanax, still using lorazepam with benefit. Would follow with provider and use sedating medications with extreme caution Else see resident documentation as noted. Total attending physician time spent with this patient's care on the day of discharge: 40 minutes.
[2022-12-16] MEDS ORDERED: CEFDINIR 300 MG CAP PO STA (13:06)
== END 2022-12-16 18:09 | disposition home health service (06) | DRG 291 ==
LOC: ED 17:03 → 2N 21:35 → SUATTDRO 21:35 → 2N 23:37

== ENCOUNTER 2023-10-30 16:12 | Inpatient (IN) ==
[2023-10-30 16:50] LABS: Basophils # (auto) 0.05 K/uL (0.00-0.20); Basophils % (auto) 0.5 %; Eosinophils # (auto) 0.14 K/uL (0.00-0.50); Eosinophils % (auto) 1.3 %; Hematocrit (blood only) 46.2 % (37.0-47.0); Hemoglobin 15.1 g/dl (12.0-16.0); Immature Granulocytes # (auto) 0.06 K/uL (0.01-0.20); Immature Granulocytes % (auto) 0.6 %; Lymphocytes # (auto) 2.26 K/uL (1.20-3.40); Lymphocytes % (auto) 21.7 %; Mean Corpuscular Hemoglobin 29.2 pg (25.0-34.0); Mean Corpuscular Hgb Conc 32.7 g/dL (32.0-36.0); Mean Corpuscular Volume 89.4 fL (80.0-100.0); Mean Platelet Volume 10.2 fL (9.4-12.4); Monocytes % (auto) 5.8 %; Neutrophils # (auto) 7.31 K/uL (1.40-6.50); Neutrophils % (auto) 70.1 %; Platelet Count 284 K/uL (130-400); RDW Coefficient of Variation 14.7 % (11.5-14.5); RDW Standard Deviation 48.1 fL (36.4-46.3); Red Blood Count 5.17 M/uL (4.20-5.40); White Blood Count 10.42 K/ul (4.8-10.8)
--- NOTE | 2023-10-30 16:59 | XRay Report ---
XR chest 1V not portable HISTORY: 68 years-old Female Chest pain, nonspecific COMPARISON: 08/17/2023 TECHNIQUE: AP view of the chest FINDINGS: Cardiac silhouette is enlarged. Pulmonary vascular congestion with interstitial coarsening. No pneumo thorax. Probable trace pleural effusions with mild bibasilar opacities. IMPRESSION: 1. Cardiomegaly with pulmonary vascular congestion. 2. Probable trace pleural effusions with mild bibasilar atelectasis. ACT 112: Negative or not required by law. The above report was generated using voice recognition software. It may contain grammatical, syntax o r spelling errors. Electronically signed by: Emmett Montes M.D. 10/30/2023 4:58 PM
[2023-10-30 17:12] LABS: Troponin I High Sensitivity 14.3 pg/ml (0-14)
[2023-10-30 17:20] LABS: Partial Thromboplastin Time 26 Seconds (21-31); Prothrombin Time 10.7 Seconds (9.0-12.0)
--- NOTE | 2023-10-30 17:58 | Emergency Department Note ---
History of Present Illness General Chief Complaint: Respiratory Problems Stated Complaint: CHEST PAIN,LOW O2,?PNEUMONIA Time Seen by Provider: 10/30/23 17:20 History of Present Illness Provider Complaint: shortness of breath Onset (ago): day(s) (3) Severity: moderate Consistency/Duration: + progressively worsening Maximum Pain Intensity: 3 Relieved By: + upright position Exacerbated By: + lying flat Known history of: congestive heart failure Associated symptoms: + chest pain, + sputum production, + orthopnea and + chest congestion; no fever, no wheezing, no palpitations, no hemoptysis, no nausea/vomiting or no rash Home Medications Medication Instructions Recorded Confirmed Type albuterol sulfate 90 mcg/actuation 1 puff inhalation UD PRN Shortness 11/12/18 07/28/23 History aerosol inhaler Of Breath azelastine 137 mcg (0.1 %) nasal 1 spray intranasal UD PRN Allergy 11/12/18 07/28/23 History spray Symptoms levalbuterol HCl 1.25 mg/3 mL 1.25 mg inhalation UD PRN 11/12/18 07/28/23 History solution for nebulization Shortness Of Breath lorazepam 2 mg tablet 2 mg PO Q4 09/07/19 07/28/23 History calcium carbonate (Calcium 500) 500 mg PO QAM 11/10/19 07/28/23 History cholecalciferol (vitamin D3) 25 2,000 mcg PO QAM 11/10/19 07/28/23 History mcg (1,000 unit) tablet (Vitamin D3) omega-3 fatty acids 1,000 mg PO QAM 11/10/19 07/28/23 History famotidine 20 mg tablet (Pepcid AC) 20 mg PO DAILY #30 tabs 11/18/19 07/28/23 Rx hydrocodone 10 mg-acetaminophen 2 tab PO Q4H PRN 03/15/20 07/28/23 History 325 mg tablet ondansetron 8 mg disintegrating 8 mg PO Q8H PRN Nausea #90 tabs 01/17/21 07/28/23 Rx tablet mirtazapine 30 mg tablet 30 mg PO HS 11/12/22 07/28/23 History omeprazole 20 mg capsule,delayed 20 mg PO DAILY Acid Reflux 11/12/22 07/28/23 History release potassium chloride 10 mEq 20 meq PO DAILY 11/12/22 07/28/23 History tablet,extended release venlafaxine 25 mg tablet 75 mg PO DAILY 01/06/23 07/28/23 History bumetanide 2 mg tablet 2 mg PO DAILY #30 tabs 01/13/23 07/28/23 Rx conjugated estrogens 0.45 mg 0.45 mg PO DAILY #30 tabs 01/19/23 07/28/23 Rx tablet (Premarin) nystatin-triamcinolone 100,000 1 applic topical QID PRN Rash 10 01/19/23 07/28/23 Rx unit/g-0.1 % topical cream days #60 grams estradiol 0.01% (0.1 mg/gram) 0.5 g vaginal 3XWK #42.5 grams 06/11/23 07/28/23 Rx vaginal cream Allergies Allergy/AdvReac Type Severity Reaction Status Date / Time duloxetine Allergy Severe INCREASES Verified 07/28/23 14:28 MUSCLE SPASMS, UNABLE TO MOVE fentanyl Allergy Severe "I almost Verified 07/28/23 14:28 when they gave it me" fexofenadine Allergy Severe HEART Verified 07/28/23 14:28 PALPITATIONS iodine Allergy Severe RASH, Verified 07/28/23 14:28 BLISTERS, ITCHING latex Allergy Severe RASH, Verified 07/28/23 14:28 BLISTERS povidone-iodine Allergy Severe RASH, Verified 07/28/23 14:28 BLISTERS salmeterol Allergy Severe INCREASE Verified 07/28/23 14:28 SPASMS AND CAN NOT MOVE diazepam Allergy Intermediate FALLS Verified 07/28/23 14:28 ASLEEP AND DROOL adhesive Allergy Mild RASH, Verified 07/28/23 14:28 BLISTERS baclofen Allergy Mild SLEEPY AND Verified 07/28/23 14:28 LEG PAIN cephalexin Allergy Mild NAUSEA, Verified 07/28/23 14:28 FLU-LIKE SYMPTOMS, RASH fluticasone Allergy Mild NOSE BLEEDS Verified 07/28/23 14:28 gabapentin Allergy Mild DIZZINESS Verified 07/28/23 14:28 AND FELL OVER tramadol Allergy Mild RASH & Verified 07/28/23 14:28 ITCHING methadone AdvReac Mild MEMORY Verified 07/28/23 14:28 LOSS, DIZZINESS, NIGHTMARES Past Med/Surg History Problem List (Updated 10/30/23 @ 19:00 by Eusebio Gonzales MD) CHF exacerbation (Acute) Hypoxia (Acute) Morbid obesity Nocturnal hypoxemia Severe obstructive sleep apnea Lumbar spinal stenosis Obesity hypoventilation syndrome Post traumatic stress disorder Anxiety Physical deconditioning Abnormal ankle brachial index Lymphedema Venous stasis ulcers Depression Delusional disorder Hearing loss Decubital ulcer Ataxia Cervical dystonia Spastic quadriparesis Hormone replacement therapy Breast pain, right Osteoporosis screening Tubular adenoma Gastroparesis Hypertension Chronic back pain Cerebral palsy Early satiety Urinary urgency Vasomotor symptoms due to menopause Epigastric pain GERD (gastroesophageal reflux disease) Medical History Edema, pitting Shortness of breath Altered mental status Fluid overload Hypoxemia Type I CRPS (complex regional pain syndrome) GERD (gastroesophageal reflux disease) Baclofen pump failure Restrictive lung disease reason for inhalers/nebulizer History of anesthesia reaction pt states that the last time she had an EGD at [facility] they had the blood pressure cuff on the same arm as her IV and she never received enough anesthesia because of this and she was in pain throughout all the whole experience Nerve pain Surgical History History of left hip replacement S/P endoscopy History of arthroscopy of left knee History of arthroscopy of right knee History of total left hip replacement History of colonoscopy History of appendectomy History of oophorectomy, unilateral right History of esophagogastroduodenoscopy (EGD) History of tooth extraction History of tonsillectomy H/O: hysterectomy with unilateral oophorectomy Family History Father Family history of diabetes mellitus Myocardial infarction Other No family history of adverse response to anesthesia Denies family history of Ovarian cancer Prostate cancer Breast cancer Colorectal cancer Social History Smoking Status: Never smoker Tobacco Type: Cigarettes Age Started Using Tobacco: 16; Age Quit Using Tobacco: 19; Cigarettes Per Day: 2-3; Second Hand Exposure: Yes (IN THE PAST); Do You Dip or Chew Tobacco: No; Hx Alcohol Use: No Hx Substance Use: Yes Last Used Substance Other:: HAS USED RX MARIJUANA IN PAST (PT WOULD NOT ANSWER CLEARLY/UNSURE IF USING) Preferred Language: Liberian Communication Ability: Effective Visual Impairment: Partially Limited Hearing Ability: Hard of Hearing Machine [employer] Rep[employer]r Required: No Beliefs That Will Affect Care: None marital status: Current Living Situation: Spouse Current Living Situation Comment: Lives at home with current occupational status: disabled Feels Safe at Home: Yes Childhood Exposure to Second-Hand Smoke: Yes Diet: regular Diet Comment: Mediterranean Dental Care, Regularly: Yes Physical Activity Frequency: Does not Exercise Seatbelt Use: always Sunscreen Use: No Assistive Devices: Bedside Commode, Crutches, Lift Chair and Wheelchair Physical Exam 2 Vital Signs: Vital Signs - 24 hr 10/30/23 16:16 10/30/23 16:16 10/30/23 17:22 Temperature 36.6 C Temperature Source Temporal Artery Sc an Pulse Rate 81 92 H Pulse Rate from Sp O2 Sensor Respiratory Rate 20 Respiratory Effort / Characteristics Non-Labored Sponta neous Non-Labored Sponta neous Respiratory Depth Normal Respiratory Patter n Regular Regular Blood Pressure 197/81 H Blood Pressure Daja n 119 Pulse Oximetry 93 Oxygen Delivery Me thod Room Air Room Air Oxygen Flow Rate Sepsis Recent Feve r Within 48 Hours No Sepsis New/Unexpla ined Change in Men mia Status No Sepsis Action Take n by Nursing No Action Required 10/30/23 17:33 10/30/23 17:55 10/30/23 17:57 Temperature Temperature Source Pulse Rate 93 H Pulse Rate from Sp O2 Sensor 93 H Respiratory Rate 22 Respiratory Effort / Characteristics Respiratory Depth Respiratory Patter n Blood Pressure 176/103 H Blood Pressure Daja n 127 Pulse Oximetry 95 89 L 96 Oxygen Delivery Me thod Room Air Nasal Cannula Oxygen Flow Rate 2 Sepsis Recent Feve r Within 48 Hours Sepsis New/Unexpla ined Change in Men mia Status Sepsis Action Take n by Nursing Physical Exam: Physical Exam GENERAL: oriented to person, place, and time. appears well-developed and well- nourished. HENT: Exam performed. - Head: Normocephalic and atraumatic. EYES: Conjunctivae and EOM are normal. Right eye exhibits no discharge. Left eye exhibits no discharge. No scleral icterus. NECK: Normal range of motion. Neck supple. No JVD present. CV: Normal rate, regular rhythm, normal heart sounds and intact distal pulses. There is no peripheral edema. Palpable radial pulses bue. PULM/CHEST: Diminished breath sounds bilaterally inspiratory rales at the bases. ABD: The abdomen is soft and obese. There is no tenderness. Course Course 1720: The patient was evaluated in room C9. A complete history and physical exam was performed Cardiac monitoring: An order was placed for continuous cardiac monitoring. The monitor shows a rate of 90 with sinus rhythm interpreted by me Patient found to be hypoxic on room air. Supplemental oxygen was applied to the patient which improved the patient's oxygen saturation. 0: Vital signs stable on supplemental oxygen via nasal cannula. proBNP high sensitive troponin elevated chest x-ray shows CHF. Patient will be treated with Bumex IV and admitted to the hospitalist team. Medical Decision Making Laboratory Data Attestation: I reviewed the patient's lab results. 10/30/23 16:35 10/30/23 16:35 Lab Results 10/30/23 Range/Units 16:35 WBC 10.42 (4.8-10.8) K/ul RBC 5.17 (4.20-5.40) M/uL Hgb 15.1 (12.0-16.0) g/dl Hct 46.2 (37.0-47.0) % MCV 89.4 (80.0-100.0) fL MCH 29.2 (25.0-34.0) pg MCHC 32.7 (32.0-36.0) g/dL RDW Std Deviation 48.1 H (36.4-46.3) fL RDW Coeff of Luis 14.7 H (11.5-14.5) % Plt Count 284 (130-400) K/uL MPV 10.2 (9.4-12.4) fL Immature Gran % (Auto) 0.6 % Neut % (Auto) 70.1 % Lymph % (Auto) 21.7 % Garden % (Auto) 5.8 % Eos % (Auto) 1.3 % Baso % (Auto) 0.5 % Neut # (Auto) 7.31 H (1.40-6.50) K/uL Lymph # (Auto) 2.26 (1.20-3.40) K/uL Garden # (Auto) 0.60 H (0.11-0.59) K/uL Eos # (Auto) 0.14 (0.00-0.50) K/uL Baso # (Auto) 0.05 (0.00-0.20) K/uL Immature Gran # (Auto) 0.06 (0.01-0.20) K/uL PT 10.7 (9.0-12.0) Seconds INR 1.0 (0.9-1.1) APTT 26 (21-31) Seconds PTT Ratio 1.0 Sodium 138 (136-145) mmol/L Potassium 3.6 (3.5-5.1) mmol/L Chloride 94 L (98-107) mmol/L Carbon Dioxide 36 H (21-32) mmol/L Anion Gap 8 (3-11) BUN 18 (6-23) mg/dl Creatinine 0.72 (0.6-1.2) mg/dl Est Cr Clr Drug Dosing Not Reportable Est GFR ( Amer) 98.3 ml/min Est GFR (Non-Af Amer) 84.9 ml/min BUN/Creatinine Ratio 25.0 H (10-20) Glucose 163 H (70-99(Fasting)) mg/dl Calcium 9.1 (8.6-10.3) mg/dl Total Bilirubin 0.5 (0.2-1.0) mg/dl AST 20 (13-39) U/L ALT 14 (7-52) U/L Alkaline Phosphatase 40 (34-104) U/L Troponin I High Sens 14.3 H (0-14) pg/ml B-Natriuretic Peptide 170 H (0-100) pg/ml Total Protein 7.0 (6.0-8.3) gm/dl Albumin 3.9 (3.4-5.0) gm/dl Globulin 3.1 (2.5-4.0) gm/dl Albumin/Globulin Ratio 1.3 (0.9-2) Imaging Data Attestation: I personally reviewed and interpreted this imaging study as follows: My Impression: Chest x-ray: Cardiomegaly with cephalization Radiologist's Impression: Chest X-Ray 10/30/23 16:21 XR chest 1V not portable HISTORY: 68 years-old Female Chest pain, nonspecific COMPARISON: 08/17/2023 TECHNIQUE: AP view of the chest FINDINGS: Cardiac silhouette is enlarged. Pulmonary vascular congestion with interstitial coarsening. No pneumothorax. Probable trace pleural effusions with mild bibasilar opacities. IMPRESSION: 1. Cardiomegaly with pulmonary vascular congestion. 2. Probable trace pleural effusions with mild bibasilar atelectasis. ACT 112: Negative or not required by law. The above report was generated using voice recognition software. It may contain grammatical, syntax or spelling errors. Electronically signed by: Emmett Montes M.D. 10/30/2023 4:58 PM ECG Data Attestation: I personally reviewed and interpreted this ECG as follows: Interpretation: Sinus rhythm with rate of 85. WI 188 QRS [address] elevation or ST depression. There is baseline artifact and wander secondary patient movement. [facility] Narrative 1720: The patient was evaluated in room C9. A complete history and physical exam was performed Cardiac monitoring: An order was placed for continuous cardiac monitoring. The monitor shows a rate of 90 with sinus rhythm interpreted by me Patient found to be hypoxic on room air. Supplemental oxygen was applied to the patient which improved the patient's oxygen saturation. 1840: Vital signs stable on supplemental oxygen via nasal cannula. proBNP high sensitive troponin elevated chest x-ray shows CHF. Patient will be treated with Bumex IV and admitted to the hospitalist team. Impression & Plan Hypoxia, CHF exacerbation Critical Care Time Critical Care Time: Yes Total Critical Care Time: 58 I have personally spent greater than 58 minutes of critical care time in the direct management of this patient. This includes bedside care, interpretation of diagnostic studies, and testing, discussion with consultants, patient, and family members, and other required patient management activities. This 58 minutes is in excess of all separately billable procedures. Discharge Plan Visit Data Chief Complaint: Respiratory Problems Stated Complaint: CHEST PAIN,LOW O2,?PNEUMONIA ED Provider: Eusebio Gonzales Discharge Problem: Hypoxia, CHF exacerbation Patient Disposition: Admitted As Inpatient Forms Stand Alone Forms: My [facility] Prescriptions Prescriptions: No Action omeprazole 20 mg capsule,delayed release(DR/EC) 20 mg PO DAILY famotidine [Pepcid AC] 20 mg tablet 20 mg PO DAILY Qty: 30 2RF Patient Comments: TAKES QPM bumetanide 2 mg tablet 2 mg PO DAILY Qty: 30 2RF estradiol 0.01 % (0.1 mg/gram) cream 0.5 g vaginal 3XWK Qty: 42.5 3RF lorazepam 2 mg tablet 2 mg PO Q4 hydrocodone-acetaminophen 10-325 mg tablet 2 tab PO Q4H PRN ondansetron 8 mg tablet,disintegrating 8 mg PO Q8H PRN (Reason: Nausea) Qty: 90 1RF mirtazapine 30 mg tablet 30 mg PO HS potassium chloride 10 mEq tablet extended release 20 meq PO DAILY Premarin 0.45 mg tablet 0.45 mg PO DAILY Qty: 30 11RF nystatin-triamcinolone 100,000-0.1 unit/g-% cream 1 applic TOP QID PRN (Reason: Rash) 10 Days Qty: 60 1RF albuterol sulfate 90 mcg/actuation HFA aerosol inhaler 1 puff inhalation UD PRN (Reason: Shortness Of Breath) azelastine 137 mcg (0.1 %) aerosol,spray 1 spray intranasal UD PRN (Reason: Allergy Symptoms) levalbuterol HCl 1.25 mg/3 mL solution for nebulization 1.25 mg inhalation UD PRN (Reason: Shortness Of Breath) calcium carbonate [Calcium 500] 500 mg calcium (1,250 mg) Tablet 500 mg PO QAM omega-3 fatty acids Capsule 1,000 mg PO QAM cholecalciferol (vitamin D3) [Vitamin D3] 25 mcg (1,000 unit) Tablet 2,000 mcg PO QAM venlafaxine 25 mg tablet 75 mg PO DAILY Rx Instructions: 3 tabs daily Referrals Referrals: Lelia Benton DO [Primary Care Provider] - Discharge Problem: CHF exacerbation Qualifiers: Heart failure type: unspecified Qualified Code(s): I50.9 - Heart failure, unspecified
[2023-10-30 18:11] LABS: Albumin Level 3.9 gm/dl (3.4-5.0); Anion Gap 8 (3-11); Bilirubin,Total 0.5 mg/dl (0.2-1.0); Calcium 9.1 mg/dl (8.6-10.3); Carbon Dioxide 36 mmol/L (21-32); Chloride 94 mmol/L (98-107); Potassium 3.6 mmol/L (3.5-5.1); Sodium 138 mmol/L (136-145)
[2023-10-30 18:17] LABS: Alanine Aminotransferase 14 U/L (7-52); Albumin Globulin Ratio 1.3 (0.9-2); Alkaline Phosphatase 40 U/L (34-104); Aspartate Aminotransferase 20 U/L (13-39); Blood Urea Nitrogen 18 mg/dl (6-23); Est GFR (African American) 98.3 ml/min; Est GFR (Non-African American) 84.9 ml/min; Globulin 3.1 gm/dl (2.5-4.0); Glucose 163 mg/dl (70-99(Fasting))
--- NOTE | 2023-10-30 18:50 | History & Physical Report ---
Date of Service October 30, 2023 Assessment & Plan (1) Hypoxia: Plan: Patient reports that she has had a low pulse ox in the 70/80% SpO2 range x 3 days prior to admission SpO2 dropping to less than 90% on RA on arrival No hx of COPD to patient's knowledge Supplement oxygen as needed to maintain SpO2 >94% Continuous pulse oximetry A.m. CBC, BMP, troponin (2) CHF exacerbation: Plan: Last echocardiogram on 10/21/23 revealed LVEF at 50-55% CXR with pulmonary vascular congestion and trace pleural effusions BNP 170 on arrival (most recently 80 on 08/17/2023) Heart healthy, low-sodium diet (1800 mL fluid restriction) Daily weights Strict I&O monitoring Increase Bumex to 2 mg IV BID Increase potassium chloride to 20mEq BID Patient reports she would prefer commode over purewick (3) Hypertension: Plan: Patient is hypertensive in 189/109 on admission Suspect this is contributing to her headaches and mild/intermittent chest pain Patient is not currently on antihypertensives other than Bumex Patient reports she does check her BP at home on occasion (but not recently) Will defer additional antihypertensive given increase in Bumex to prevent flash edema Recommend following up with PCP outpatient (4) Type I CRPS (complex regional pain syndrome): Plan: Patient takes acetaminophenhydrocodone 10 tabs daily Will decrease to 2 tablets q6h as needed Continue lorazepam/alprazolam (5) Severe obstructive sleep apnea: Plan: Patient reports she does not tolerate CPAP (6) Restrictive lung disease: Plan: Continue nebs/inhalers (7) Gastroparesis: Plan: Sucralfate PRN (8) Cerebral palsy: Plan Disposition: Admit to [facility] telemetry Full code Heart healthy, low-sodium diet (1800 mL fluid restriction) VTE PPx: Lovenox 40 mg SQ q24h History of Present Illness Chief Complaint: Respiratory problems Primary Care Provider: Lelia Benton DO Makeda is a 68-year-old female with PMH of GERD, acute gastric pain, cerebral palsy, gastroparesis, HTN, tubular adenoma, osteoporosis, spastic quadriparesis, depression, PTSD, severe PEEWEE, lumbar spinal stenosis, anxiety, and depression. She presented on 10/29 for low pulse ox saturations at home, headache, and intermittent/mild chest pain. This has been worsening for the past 3 days. Her headache tends to match her low pulse ox. She reports it has gotten down to 71 to 88% at home, but returns to >90% with deep breaths. Her last headache and chest pain was this morning, and lasted around 15 minutes. No sick contacts. She denies SOB at rest or with exertion. However, she does note she has had an expiratory wheeze recently which is new for her. She had a temperature of 98.7 F yesterday, which she reports is high for her as she tends to run low. Patient took her regular morning medications today; no recent change in medications. She reports good compliance with taking her Bumex. She also endorses a 3 pound weight loss over the past week. No change in diet. Patient reports that she watches her salt intake (reports she probably does not eat enough salt). She does not use supplemental oxygen at baseline. She does not use a CPAP at night as she has been unable to tolerate in the past. No history of COPD or asthma. She denies smoking, tobacco use, recent alcohol use. No sick contacts. No history of DVT/PE. Patient is hypertensive at 176/103 at time of admission; SpO2 96% on 1L NC. ED course: Bumex 2 mL IV ROS: Patient endorses headache, low oxygen saturations, wheezing, and mild intermittent chest pain. Patient denies fever, chills, night sweats, dizziness, lightheadedness, SOB at rest, SOB with exertion, pleuritic CP, cough, abdominal pain, N/V/D, or recent swelling of the legs. Allergies Allergy/AdvReac Type Severity Reaction Status Date / Time duloxetine Allergy Severe INCREASES Verified 07/28/23 14:28 MUSCLE SPASMS, UNABLE TO MOVE fentanyl Allergy Severe "I almost Verified 07/28/23 14:28 when they gave it me" fexofenadine Allergy Severe HEART Verified 07/28/23 14:28 PALPITATIONS iodine Allergy Severe RASH, Verified 07/28/23 14:28 BLISTERS, ITCHING latex Allergy Severe RASH, Verified 07/28/23 14:28 BLISTERS povidone-iodine Allergy Severe RASH, Verified 07/28/23 14:28 BLISTERS salmeterol Allergy Severe INCREASE Verified 07/28/23 14:28 SPASMS AND CAN NOT MOVE diazepam Allergy Intermediate FALLS Verified 07/28/23 14:28 ASLEEP AND DROOL adhesive Allergy Mild RASH, Verified 07/28/23 14:28 BLISTERS baclofen Allergy Mild SLEEPY AND Verified 07/28/23 14:28 LEG PAIN cephalexin Allergy Mild NAUSEA, Verified 07/28/23 14:28 FLU-LIKE SYMPTOMS, RASH fluticasone Allergy Mild NOSE BLEEDS Verified 07/28/23 14:28 gabapentin Allergy Mild DIZZINESS Verified 07/28/23 14:28 AND FELL OVER tramadol Allergy Mild RASH & Verified 07/28/23 14:28 ITCHING methadone AdvReac Mild MEMORY Verified 07/28/23 14:28 LOSS, DIZZINESS, NIGHTMARES Home Medications Medication Instructions Recorded Confirmed Type albuterol sulfate 90 mcg/actuation 1 puff inhalation UD PRN Shortness 11/12/18 10/30/23 History aerosol inhaler Of Breath azelastine 137 mcg (0.1 %) nasal 1 spray intranasal UD PRN Allergy 11/12/18 10/30/23 History spray Symptoms levalbuterol HCl 1.25 mg/3 mL 1.25 mg inhalation UD PRN 11/12/18 10/30/23 History solution for nebulization Shortness Of Breath lorazepam 2 mg tablet 2 mg PO Q4 09/07/19 10/30/23 History calcium carbonate (Calcium 500) 500 mg PO QAM 11/10/19 10/30/23 History cholecalciferol (vitamin D3) 25 2,000 mcg PO QAM 11/10/19 10/30/23 History mcg (1,000 unit) tablet (Vitamin D3) omega-3 fatty acids 1,000 mg PO QAM 11/10/19 10/30/23 History famotidine 20 mg tablet (Pepcid AC) 20 mg PO DAILY #30 tabs 11/18/19 10/30/23 Rx hydrocodone 10 mg-acetaminophen 2 tab PO Q4H PRN Pain 03/15/20 10/30/23 History 325 mg tablet ondansetron 8 mg disintegrating 8 mg PO Q8H PRN Nausea #90 tabs 01/17/21 10/30/23 Rx tablet mirtazapine 30 mg tablet 30 mg PO HS 11/12/22 10/30/23 History omeprazole 20 mg capsule,delayed 20 mg PO DAILY Acid Reflux 11/12/22 10/30/23 History release potassium chloride 10 mEq 20 meq PO DAILY 11/12/22 10/30/23 History tablet,extended release venlafaxine 25 mg tablet 75 mg PO DAILY 01/06/23 10/30/23 History bumetanide 2 mg tablet 2 mg PO DAILY #30 tabs 01/13/23 10/30/23 Rx nystatin-triamcinolone 100,000 1 applic topical QID PRN Rash 10 01/19/23 10/30/23 Rx unit/g-0.1 % topical cream days #60 grams alprazolam 1 mg tablet 1 mg PO DAILY 10/30/23 10/30/23 History conjugated estrogens 0.45 mg 0.45 mg PO QAM 10/30/23 10/30/23 History tablet (Premarin) estradiol 0.01% (0.1 mg/gram) 0.5 g vaginal [id number] PRN Other 10/30/23 10/30/23 History vaginal cream sucralfate 1 gram tablet 1 g PO BID PRN Other 10/30/23 10/30/23 History Past Med/Surg History Problem List (Updated 10/30/23 @ 19:44 by Isidro Briscoe PA-C) Type I CRPS (complex regional pain syndrome) Restrictive lung disease reason for inhalers/nebulizer CHF exacerbation (Acute) Hypoxia (Acute) Morbid obesity Nocturnal hypoxemia Severe obstructive sleep apnea Lumbar spinal stenosis Obesity hypoventilation syndrome Post traumatic stress disorder Anxiety Physical deconditioning Abnormal ankle brachial index Lymphedema Venous stasis ulcers Depression Delusional disorder Hearing loss Decubital ulcer Ataxia Cervical dystonia Spastic quadriparesis Hormone replacement therapy Breast pain, right Osteoporosis screening Tubular adenoma Gastroparesis Hypertension Chronic back pain Cerebral palsy Early satiety Urinary urgency Vasomotor symptoms due to menopause Epigastric pain GERD (gastroesophageal reflux disease) Medical History Edema, pitting Shortness of breath Altered mental status Fluid overload Hypoxemia Type I CRPS (complex regional pain syndrome) GERD (gastroesophageal reflux disease) Baclofen pump failure Restrictive lung disease reason for inhalers/nebulizer History of anesthesia reaction pt states that the last time she had an EGD at [facility] they had the blood pressure cuff on the same arm as her IV and she never received enough anesthesia because of this and she was in pain throughout all the whole experience Nerve pain Surgical History History of left hip replacement S/P endoscopy History of arthroscopy of left knee History of arthroscopy of right knee History of total left hip replacement History of colonoscopy History of appendectomy History of oophorectomy, unilateral right History of esophagogastroduodenoscopy (EGD) History of tooth extraction History of tonsillectomy H/O: hysterectomy with unilateral oophorectomy Family History Father Family history of diabetes mellitus Myocardial infarction Other No family history of adverse response to anesthesia Denies family history of Ovarian cancer Prostate cancer Breast cancer Colorectal cancer Social History Smoking Status: Never smoker Tobacco Type: Cigarettes Age Started Using Tobacco: 16; Age Quit Using Tobacco: 19; Cigarettes Per Day: 2-3; Second Hand Exposure: Yes (IN THE PAST); Do You Dip or Chew Tobacco: No; Hx Alcohol Use: No Hx Substance Use: Yes Last Used Substance Other:: HAS USED RX MARIJUANA IN PAST (PT WOULD NOT ANSWER CLEARLY/UNSURE IF USING) Preferred Language: Serbian Communication Ability: Effective Visual Impairment: Partially Limited Hearing Ability: Hard of Hearing Pullman Clerk Required: No Beliefs That Will Affect Care: None marital status: Current Living Situation: Spouse Current Living Situation Comment: Lives at home with current occupational status: disabled Feels Safe at Home: Yes Childhood Exposure to Second-Hand Smoke: Yes Diet: regular Diet Comment: Mediterranean Dental Care, Regularly: Yes Physical Activity Frequency: Does not Exercise Seatbelt Use: always Sunscreen Use: No Assistive Devices: Bedside Commode, Crutches, Lift Chair and Wheelchair Review of Systems Review of Systems: See HPI above Physical Exam Physical Exam: General: Patient is in her wheelchair in no acute distress; non-toxic appearing; cooperative; SpO2 96% on 1L NC, and 92 - 93% on room air (when trialed off oxyge n) HEENT: normocephalic, atraumatic; no scleral icterus; PERRLA; vision and hearing grossly intact Neck: supple; no lymphadenopathy; trachea midline Skin: warm, dry without signs of tenting; no cyanosis; no rashes, bruising, lesions, or erythema noted CV: chest wall NTP; RRR; S1/S2 normal; no murmurs/rubs/gallops; pulses intact and symmetric at radial, DP, and PT Lungs: Mild respiratory distress; conversational dyspnea; symmetrical chest wall expansion; audible wheezing with deep breaths (nasal breathing); clear breath sounds bilaterally ABD: Soft, NTP; BS present; no rebound/guarding; no distention MSK: no tics or fasciculations; nonpitting edema noted in the LEs b/l (thigh- high compression stockings in place) Neuro: A&Ox3; normal mood and affect; fluent speech; no focal deficits; sensati on intact and symmetric in the LEs b/l Results & Data Results & Data Vital Signs (Past 12 Hours) Vital Signs Temp Pulse Resp BP Pulse Ox O2 Del Method O2 Flow Rate 10/30/23 17:57 96 Nasal Cannula 2 10/30/23 17:55 89 L Room Air 10/30/23 17:33 93 H 22 176/103 H 95 10/30/23 17:22 92 H 10/30/23 16:16 36.6 C 81 20 197/81 H 93 Room Air 10/30/23 16:16 Room Air Laboratory Results Abnormal lab results 10/30/23 Range/Units 16:35 RDW Std Deviation 48.1 H (36.4-46.3) fL RDW Coeff of Luis 14.7 H (11.5-14.5) % Neut # (Auto) 7.31 H (1.40-6.50) K/uL Loving # (Auto) 0.60 H (0.11-0.59) K/uL Chloride 94 L (98-107) mmol/L Carbon Dioxide 36 H (21-32) mmol/L BUN/Creatinine Ratio 25.0 H (10-20) Glucose 163 H (70-99(Fasting)) mg/dl Troponin I High Sens 14.3 H (0-14) pg/ml B-Natriuretic Peptide 170 H (0-100) pg/ml Diagnostic Findings Chest X-Ray 10/30/23 16:21 XR chest 1V not portable HISTORY: 68 years-old Female Chest pain, nonspecific COMPARISON: 08/17/2023 TECHNIQUE: AP view of the chest FINDINGS: Cardiac silhouette is enlarged. Pulmonary vascular congestion with interstitial coarsening. No pneumothorax. Probable trace pleural effusions with mild bibasilar opacities. IMPRESSION: 1. Cardiomegaly with pulmonary vascular congestion. 2. Probable trace pleural effusions with mild bibasilar atelectasis. ACT 112: Negative or not required by law. The above report was generated using voice recognition software. It may contain grammatical, syntax or spelling errors. Electronically signed by: Emmett Montes M.D. 10/30/2023 4:58 PM ECG Additional Comments: ECG revealed NSR 85 bpm; QTc 514 (caution use in QT prolonging agents) Code Status & VTE Plan Code Status Full code VTE Prophylaxis Plan VTE Prophylaxis will be ordered: Yes Supervising Physician Co-Signing Physician Notes Patient seen and examined, chart reviewed, case discussed with Isidro Briscoe PA-C and I agree with the assessment and plan as above except as otherwise noted Labs and images reviewed 68-year-old female with past history of GERD, cerebral palsy, gastroparesis, tubular adenoma, depression, PTSD, PEEWEE, lumbar stenosis, anxiety/depression who presented to the ER for hypoxia and worsening intermittent chest pain over 3 days. Reports has been hypoxic to 70-88% by home pulse ox, improves with deep breathing. Patient was on 2 L nasal cannula in the ER to maintain saturation greater than 90%. No leukocytosis. Troponin was mildly elevated with repeat pending, BNP mildly elevated. Chest x-ray showed pulmonary vascular congestions and suspected trace pleural effusions with bibasilar atelectasis. Creatinine was at baseline. Last echo was with grade 1 diastolic dysfunction, LV SF normal. She has had a chronic cough, and has had significant weight gain concerning for volume overload. Was recommended for monitoring and diuresis for potential diastolic CHF. At bedside is clinically improving following Bumex. Agree with Bumex twice daily, low-sodium diet, titrate oxygen to goal greater than 89%. Clinically stable at bedside. RRR. Lungs are diminished in the bases with trace crackles, no wheezing on tidal breaths or on forced expiration. Does have a nasal wheeze. Dx includes diastolic CHF, pt is also on narcotics and benzos, ddx includes resp suppression although she reports she feels much more dyspnic when active and endorses orthopnea more consistent with CHF. agree w/ above PG Care Time/CCT Total # of Minutes Spent Total Time Spent with Patient: Total time spent is greater than 50% in coordination of care (as documented) at patient's floor/unit and/or counseling patient: C[place] [address] INT INP/OBS CARE 375MIN Patient Type Established Medical Decision Making High Complexity Diagnoses Hypoxia R09.02 CHF exacerbation I50.9 Heart failure type: unspecified Hypertension I10 Type I CRPS (complex regional pain syndrome) G90.50 Severe obstructive sleep apnea G47.33 Restrictive lung disease J98.4 Gastroparesis K31.84 Cerebral palsy G80.9 (2) CHF exacerbation Heart failure type: unspecified Qualified Code(s): I50.9 - Heart failure, unspecified
[2023-10-30] MEDS: BUMETANIDE 2 MG in SYRINGE 0 ML IV ONE (19:59)
[2023-10-30] MEDS ORDERED: ALBUTEROL HFA 8 GM INHALER INH PRN ×2 (21:30→22:02)
[2023-10-30] MEDS ORDERED: LEVALBUTEROL 1.25 MG/3 ML NEB INH PRN (21:30)
[2023-10-30] MEDS ORDERED: ACETAMINOPHEN 325 MG TAB PO PRN (21:30)
[2023-10-30] MEDS ORDERED: SUCRALFATE 1 GM TAB PO PRN (21:30)
[2023-10-30] MEDS ORDERED: AZELASTINE HCL 0.1% NASAL 200 SPRAYS/27,400 MCG BTL PRN (21:30)
--- OUTSIDE RECORDS SUMMARY | 2023-10-30 21:39 | External Medical Summary | Continuity of Care Document ---
Author Name Unknown Organization [address] Address [address] [place], [place] [id number] Care Team Providers Care Tire Specialist Name Role Phone Marcela Thomas Primary Care Physician [phone] [facility]counter [id number] Date(s): 10/22/23 - 10/22/23 [place] [id number] [address] C CROW A [facility] [address] [id number] [phone] Encounter Diagnosis Chronic fatigue(Discharge Diagnosis) - 10/22/23 CP (cerebral palsy)(Discharge Diagnosis) - 10/22/23 Dystonia(Discharge Diagnosis) - 10/22/23 Gastroparesis(Discharge Diagnosis) - 10/22/23 GERD without esophagitis(Discharge Diagnosis) - 10/22/23 HTN (hypertension)(Discharge Diagnosis) - 10/22/23 PEEWEE (obstructive sleep apnea)(Discharge Diagnosis) - 10/22/23 Erythrocytosis(Discharge Diagnosis) - 10/22/23 Discharge Disposition: Home or Self Care Attending Physician: DO Benton Allison B Allergies, Adverse Reactions, Alerts Substance Criticality Severity Reaction Reaction Severity Status methadone nightmares mental status change Active diazepam unknown Active fluconazole flu sx Active azithromycin Rash Active Neurontin dizzy and fell Activ e baclofen unknown Active salmeterol worsens spascticity Active fexofenadine unknown Active Keflex Diarrhea Rash Active Betadine blisters Active Adhesive bandage rash rips skin Active Cymbalta rigidity Active Lyrica muscle aches, p ains, stiff Active Cara Muscle Rigidity Acti ve Latex Rash Active iodine Rash blisters Active Advair HFA unable to ambul ate Rigidity Active Allergy Not found in Search 1 rips skin Active traMADol nerve tingling/sensations Active fentaNYL respirations issues Active TiZANidine Hydrochloride extreme hypotension Active 1adhesive tape- lens hardener jmagdalena Assessment and Plan Extracted from: Title:Office Visit Note Author:DO Benton Allis on B Date:10/22/23 1.Chronic fatigue Improved with PT/OT.Continue current medications. Continue to follow with specialist. 2.CP (cerebral palsy) Stable.Continue tofollow-up with neurology and pain management. 3.Dystonia Continue on current medications. Continue with PT OT. 4.Gastroparesis Encourage patient to follow-up with [facility]. 5.GERD without esophagitis Stable. Encourage patient to follow-up with [facility] for history of gastroparesis and GERD. Continue on current medications. She most likely is due for repeat EGD. 6.HTN (hypertension) Blood pressure repeat in office was stable. Would like to continue to monitor. She haddeclined medications in the past. 7.PEEWEE (obstructive sleep apnea) Continue to follow with sleep medicine. 8.Erythrocytosis Suspect secondary to PEEWEE and possible dehydration due to Bumex. Repeat blood work pending. Patient is due for cardiology. She had an updated echo and waiting on results. Mammogram is pending. Return to the office in 6 weeks or sooner as needed. Immunizations Given and Recorded Vaccine Date Status Refusal Reason SARS-CoV-2 mRNA (uaysfujslsg-ocqn-ael) 1 08/13/21 Recorded SARS-CoV-2 (COVID-19) mRNA BNT-162b2 vax 2 01/15/21 Recorded zoster vaccine, inactivated 3 10/11/20 Recorded SARS-CoV-2 (COVID-19) mRNA-1273 vaccine 4 04/24/20 Recorded SARS-CoV-2 (COVID-19) mRNA-1273 vaccine 5 03/26/20 Recorded tetanus/diphtheria/pertuss, acel (Tdap) 6 10/17/19 Recorded tetanus/diphtheria/pertuss, acel (Tdap) 7 11/04/07 Recorded pneumococcal 13-valent vaccine 8 10/17/19 Recorded zoster vaccine live 9 02/02/14 Recorded pneumococcal 23-valent vaccine 10 12/01/13 Recorde d pneumococcal 23-valent vaccine 11 11/11/01 Recorde d influenza virus vaccine, H1N1 12 01/24/09 Recorded tetanus toxoids-diphtheria, Td (Adult) 13 07/20/98 Recorded 1Result Comment: 2022-02-21: Historical information-source unspecified 2Result Comment: 2022-02-21: Historical information-source unspecified 3Result Comment: 2022-02-21: Historical information-source unspecified 4Result Comment: 2022-02-21: Historical information-source unspecified 5Result Comment: 2022-02-21: Historical information-source unspecified 6Result Comment: 2022-02-21: Historical information-source unspecified 7Result Comment: 2022-02-21: Historical information-source unspecified 8Result Comment: 2022-02-21: Historical information-source unspecified 9Result Comment: 2022-02-21: Historical information-source unspecified 10Result Comment: 2022-02-21: Historical information-source unspecified 11Result Comment: 2022-02-21: Historical information-source unspecified 12Result Comment: 2022-02-21: Historical information-source unspecified 13Result Comment: 2022-02-21: Historical information-source unspecified Medications acetaminophen-HYDROcodone 325 mg-10 mg oral tablet Start: 09/24/17 10:57:00 AM EDT, 2 tab, PO, q4h, Refills: 0, PRN for Pain. Max of 7-8 day Start Date: 09/24/17 Status: Ordered ALPRAZolam 1 mg oral tablet Start: 08/27/23 4:35:00 PM EDT Start Date: 08/27/23 Status: Ordered Amitiza 24 mcg oral capsule Start: 04/23/16 12:57:00 PM EST, 1 cap, PO, bid, Disp# 60 cap, Refills: 3, Pharmacy: [id number] Start Date: 04/23/16 Status: Ordered Astelin 137 mcg/inh nasal spray Start: 08/10/12 3:00:00 PM EDT, 2 spray, intranasal, bid, prn Start Date: 08/10/12 Status: Suspended bumetanide 2 mg oral tablet Start: 10/14/23 1:00:00 PM EDT, 1 tab, PO, Daily, Disp# 60 tab, Refills: 0, Pharmacy: [id number] Start Date: 10/14/23 Stop Date: 12/13/23 Status: Ordered calcitriol 0.5 mcg oral capsule Start: 07/06/15 11:49:00 AM EDT, 1 cap, PO, Daily Start Date: 07/06/15 Status: Suspended diclofenac 1% topical gel Start: 01/30/17 9:01:32 AM EST, See Instructions, Disp# 200, Refills: 4, APPLY 2 GRAMS TOPICALLY 4 TIMES A DAY NEEDED FOR PAIN, Pharmacy: [facility] Start Date: 01/30/17 Status: Ordered famotidine 40 mg oral tablet Start: 09/23/23 1:13:00 PM EDT, 1 tab, PO, qhs, Disp# 30 tab, Refills: 0, TAKE 1 TABLET BY MOUTH ONCEDAILY IN THE EVENING, Pharmacy: [facility] Start Date: 09/23/23 Stop Date: 10/23/23 Status: Ordered hydrocortisone Start: 01/01/16 11:28:00 AM EST, and Clotrimazole cream, As indicated Start Date: 01/01/16 Status: Suspended levalbuterol 1.25 mg/3 mL for nebulization Start: 01/01/16 11:29:00 AM EST Start Date: 01/01/16 Status: Suspended lidocaine 5% topical cream Start: 05/26/23 8:50:00 AM EDT, 1 appl, topical, tid, Disp# 30 g, Refills: 2, Pharmacy: [facility] Start Date: 05/26/23 Status: Ordered lidocaine 5% topical ointment Start: 06/25/15 6:40:00 PM EDT, 1 appl, topical, tid, Disp# 50 g, Refills: 2, Pharmacy: [facility] Start Date: 06/25/15 Stop Date: 09/23/15 Status: Suspended LORazepam 1 mg oral tablet Start: 03/05/16 5:18:00 PM EST, 1 tab, PO, q4h, Disp# 180 tab, Refills: 2 Start Date: 03/05/16 Stop Date: 06/03/16 Status: Ordered methyltestosterone Start: 05/18/13 2:04:00 PM EDT, 1 da silva, PO, Daily Start Date: 05/18/13 Status: Suspended mirtazapine 15 mg oral tablet Start: 12/12/22 3:46:00 PM EDT, 1 tab, PO, qhs Start Date: 12/12/22 Status: Ordered omeprazole 40 mg oral delayed release capsule Start: 09/14/23 3:54:00 PM EDT, 1 cap, PO, Daily, Disp# 90 cap, Refills: 0, Pharmacy: [facility] Start Date: 09/14/23 Status: Ordered ondansetron 8 mg oral tablet, disintegrating Start: 08/07/23 12:51:00 PM EDT, 1 tab, PO, bid, Disp# 60 tab, Refills: 0, Pharmacy: [facility] Start Date: 08/07/23 Status: Ordered Potassium Chloride (Deg-Mwzd-Gpv 10) 10 mEq oral tablet, extended release Start: 08/14/23 8:47:00 AM EDT, 4 tab, PO, Daily, Disp# 120 tab, Refills: 0, Pharmacy: [facility] Start Date: 08/14/23 Status: Ordered Premarin 0.45 mg oral tablet Start: 05/18/13 1:57:00 PM EDT, 1 tab, PO, Daily Start Date: 05/18/13 Status: Suspended Premarin 0.625 mg/g vaginal cream with applicator INSERT 1 2 GRAM OF CREAM VAGINALLY 3 TIMES PER WEEK Start Date: 02/21/22 Status: Ordered Retaine MGD Start: 12/12/22 3:45:00 PM EDT Start Date: 12/12/22 Status: Ordered Senokot S Start: 01/02/14 11:26:00 AM EST, 2 tab, PO, qid Start Date: 01/02/14 Status: Suspended sucralfate 1 g oral tablet Start: 09/14/23 3:54:00 PM EDT, 1 tab, PO, qid, Disp# 360 tab, Refills: 0, Pharmacy: [facility] Start Date: 09/14/23 Stop Date: 12/13/23 Status: Ordered venlafaxine 25 mg oral tablet Start: 12/12/22 3:46:00 PM EDT, 1 tab, PO, tid Start Date: 12/12/22 Status: Ordered Mental Status 10/22/23 Barriers to Learning one year None evide nt Mandatory Health Literacy Documentation Yes Health Literacy Communication Barriers N ever Primary Language Lithuanian Problem List Condition Confirmation Course Effective Dates Status H ealth Status Informant Asthma Confirmed Active Chronic fatigue Confirmed Active Complex regional pain syndrome I, unspecified Confirmed Active Constipation Confirmed Active Osteoarthritis of knee Confirmed Active Delusion Confirmed Active Dystonia Confirmed Active Erythrocytosis Confirmed Active GERD without esophagitis Confirmed Active Gastroparesis Confirmed Active History of peptic ulcer disease Confirmed Active CP (cerebral palsy) Confirmed Active Ventral hernia Confirmed Active HTN (hypertension) Confirmed Active Leukocytosis Confirmed Active Frequent urination at night Confirmed Active PEEWEE (obstructive sleep apnea) Confirmed Active Osteitis pubis Confirmed Active Spastic quadriplegia Confirmed Active Lack of bladder control Confirmed Active Vitamin D deficiency Confirmed Active Weight disorder Confirmed Active Diagnosis Diagnosis Type Effective Dates Health Status Clinical Service Informant Chronic fatigue Discharge Diagnosis 10/22/23 Non-Specified Gastroparesis Discharge Diagnosis 10/22/23 Non-Specified GERD without esophagitis Discharge Diagnosis 10/22/23 Non-Specified Erythrocytosis Discharge Diagnosis 10/22/23 Non-Specified CP (cerebral palsy) Discharge Diagnosis 10/22/23 Non-Specified Dystonia Discharge Diagnosis 10/22/23 Non-Specified HTN (hypertension) Discharge Diagnosis 10/22/23 Non-Specified PEEWEE (obstructive sleep apnea) Discharge Diagnosis 10/22/23 Non-Specified Procedures Procedure Date Related Diagnosis Body Site Status Colonoscopy 1 12/19/19 Completed Refilling and maintenance of implantable pump or reservoir for drug delivery, spinal (intrathecal, epidural) or brain (intraventricular), includes electronic analysis of pump, when performed; 12/31/15 Completed Refilling of implanted drug reservoir 08/31/15 Completed Refilling and maintenance of implantable pump or reservoir for drug delivery, spinal (intrathecal, epidural) or brain (intraventricular), includes electronic analysis of pump, when performed; 05/29/15 Completed Refilling and maintenance of implantable pump or reservoir for drug delivery, spinal (intrathecal, epidural) or brain (intraventricular), includes electronic analysis of pump, when performed; requiring skill of a physician or other qualified health care p 03/01/15 Completed Refilling of implanted drug reservoir 03/30/14 Completed Refilling and maintenance of implantable pump or reservoir for drug delivery, spinal (intrathecal, epidural) or brain (intraventricular), includes electronic analysis of pump, when performed; 01/02/14 Completed Intrathecal injection 05/09/13 Com pleted MORPHINE PUMP IMPLANT 2013 Com pleted Total hip, left 2004 Completed Arthroscopy of knee, Bilateral 2 1998 Completed Hysterectomy 1997 Completed Laparoscopy 1997 Completed Tonsillectomy 1972 Completed Tenotomy, Bilateral Adductor 1967 Completed Tenotomy, Bilateral Hamstring 1957 Completed Appendectomy 3 Completed Injection 4 Completed 1One 6mm polyp in the transverse colon, removed wtih a hot snare. Resected and retrieved. Clip was placed. Final Diagnosis: Tubular adenoma, Melanosis Coli. Repeat Colonoscopy 2024 2B/L 3removal of ovary and scar tissue 4botox Vital Signs Most recent to oldest [Reference Range]: 1 2 Patient Weight 111 kg (10/22/23 10:52 AM) Blood Pressure 128/86mmHg (10/22/23 10:52 AM) 178/100mmHg (10/22/23 9:56 AM) Cuff Pulse Pressure 42 mmHg (10/22/23 10:52 AM) 78 mmHg (10/22/23 9:56 AM) BP Location # 1 Left Arm (10/22/23 10:52 AM) Left Arm (10/22/23 9:56 AM) Social History Social History Type Response Smoking Status Former Smoker, quit > 1 yr Sex Female Sex Representation Female (finding) FCM Outpt Note * DO Benton Allison B: PERFORM Event Display: FCM Outpt Note Authored Date: Chief Complaint Pt here for 6 week f/u. Pt states that she is in the process of leaving her so having a lot of anxiety. History of Present Illness Patient is a 68 year old female that presents to the office for a routine follow up. She reports that she is leaving her and has a plan. She denies abuse. She states that eddahas alot of yealling. She feelsthat she has verbalabuse.Shereports that she feels safe at home. She reports that jannas met with an estimator project manager. Vital rehab. She reports taht she is doing extremley well with PT/OT. She was last in the office September 01.Irma been sent to the ER on August 26 for continued shortness of breath. ER visit reviewed. CXR in the ER demonstratedcardiomegaly andmild pulmonary edema. She had stated prior to the ER she had been taking extra doses of Bumex without relief Echo has been ordered andis pending. Patient has had issues with herweight andis being referred toGI nutrition. She has a history of gastroparesis andhave deferredGLP-1agonist.She reports that she has an appointment, butnot fora couple ofmonths. [facility]. Patient reports that she has lost weight since her last visit from increasing exercise and diet changes. We were unable to get a weight today. She has been flowing withNeurology and she reports that she underwent MRI lumbar in May. She continues to Pain management. She hadbeen following with [facility] for gastroparesis. She is due for follow up. She isdue fora follow up with an EGD as she reportsthat she had an ulcer 2 years ago. She has not contact themfor follow up. She is due for repeat EGD. She reports that her GERD has been stable. She reports that she has been stable today. She is using her Bumex as ordered. She feels that she is breathing well. She reports that her echo was yesterday. She is following with Psychiatry. Maria yanes.She is up to date with Optometry. She reports that she is up to date with Gynecology and is due for her mammogram. She follows with Dr. Arevalo. Recent blood work was reviewed. suspect Review of Systems Constitutional: No fever, No chills, No fatigue._ Respiratory: No shortness of breath, No cough, No wheezing. _ Cardiovascular: no lightheadedness/presyncope, No chest pain, No palpitations._ Gastrointestinal: No nausea, No vomiting, No diarrhea, No constipation, No heartburn, No abdominal pain._ Musculoskeletal:Chronic pain Skin: No rash, No pruritus, No breakdown._ Neurologic:No abnormal balance, No numbness, No tingling, No headache._ Physical Exam Vitals & Measurements BP:128/86 WT:111.000kg(Dosing) WT:111kg PHQ2 Data(Data Documented on:10/22/2023 09:52) Emotional health assessment POSITIVE PHQ-9 Data(Data Documented on:10/22/2023 09:54) PHQ-9 Severity Score:3 Thoughts that you would be better off or of hurting yourself in some way?Not at All Depression Risk:Not Elevated General: _Alert and oriented, No acute distress HEENT: _ Normocephalic, TM clear, Nl gross hearing, moist oral mucosa _ Cardiovascular: _Normal rate, Regular rhythm, No murmur, No gallop. Respiratory: _Lungs are clear to auscultation, Respirations are non-labored, Breath sounds are equal Gastrointestinal: _Soft, Non-tender, Non-distended, Normal bowel sounds. Musculoskeletal: In Wheelchair. Integumentary: _Warm, Dry, [place]. Psych: Mood-affect congruence. Reports no SI/HI. Speech is of normal pace and content Assessment/Plan 1.Chronic fatigue Improved with PT/OT.Continue current medications. Continue to follow with specialist. 2.CP (cerebral palsy) Stable.Continue tofollow-up with neurology and pain management. 3.Dystonia Continue on current medications. Continue with PT OT. 4.[facility]roparesis [facility] 5.GERD without esophagitis Stable. Encourage patient to follow-up with [facility] for history of gastroparesis and GERD. Continue on current medications. She most likely is due for repeat EGD. 6.HTN (hypertension) Blood pressure repeat in office was stable. Would like to continue to monitor. She haddeclined medications in the past. 7.PEEWEE (obstructive sleep apnea) Continue to follow with sleep medicine. 8.Erythrocytosis Suspect secondary to PEEWEE and possible dehydration due to Bumex. Repeat blood work pending. Patient is due for cardiology. She had an updated echo and waiting on results. Mammogram is pending. Return to the office in 6 weeks or sooner as needed. Problem List/Past Medical History Ongoing Asthma Chronic fatigue Complex regional pain syndrome I, unspecified Constipation CP (cerebral palsy) Delusion Dystonia Erythrocytosis Frequent urination at night Gastroparesis GERD without esophagitis History of peptic ulcer disease HTN (hypertension) Lack of bladder control Leukocytosis PEEWEE (obstructive sleep apnea) Osteitis pubis Osteoarthritis of knee Spastic quadriplegia Ventral hernia Vitamin D deficiency Weight disorder Procedure/Surgical History Colonoscopy| Service Date: 12/19/2019Refilling and maintenance of implantable pump or reservoir for drug delivery, spinal (intrathecal, epidural) or brain (intraventricular), includes electronic analysis of pump, when performed;| Service Date: 12/31/2015Refilling of implanted drug reservoir| Service Date: 08/31/2015Refilling and maintenance of implantable pump or reservoir for drug delivery, spinal (intrathecal, epidural) or brain (intraventricular), includes electronic analysis of pump, when performed;| Service Date: 05/29/2015Refilling and maintenance of implantable pump or re servoir for drug delivery, spinal (intrathecal, epidural) or brain (intraventricular), includes electronic analysis of pump, when performed; requiring skill of a physician or other qualified health care p| Service Date: 03/01/2015Refilling of implanted drug reservoir| Service Date: 03/30/2014R efilling and maintenance of implantable pump or reservoir for drug delivery, spinal (intrathecal, epidural) or brain (intraventricular), includes electronic analysis of pump, when performed;| ServiceDate: 01/02/2014Intrathecal injection| Service Date: 05/09/2013MORPHINE PUMP IMPLANT| ServiceDate: 2013Total hip, left| Service Date: 2004Arthroscopy of knee, Bilateral| Service Date: 1998Hysterectomy| Service Date: 1997Laparoscopy| Service Date: 1997Tonsillectomy| Service Date: 1972Tenotomy, Bilateral Adductor| Service Date: 1967Tenotomy, Bilateral Hamstring| Service Date: 8AppendectomyInjection Medications acetaminophen-HYDROcodone(acetaminophen-HYDROcodone 325 mg-10 mg oral tablet), 2 tab, PO, q4h ALPRAZolam(ALPRAZolam 1 mg oral tablet) bumetanide(bumetanide 2 mg oral tablet), 2 mg= 1 tab, PO, Daily conjugated estrogens topical(Premarin 0.625 mg/g vaginal cream with applicator) diclofenac topical(diclofenac 1% topical gel), See Instructions, 4 refills famotidine(famotidine 40 mg oral tablet), 40 mg= 1 tab, PO, qhs lidocaine topical(lidocaine 5% topical cream), 1 appl, topical, tid, 2 refills LORazepam(LORazepam 1 mg oral tablet), 1 mg= 1 tab, PO, q4h, 2 refills lubiprostone(Amitiza 24 mcg oral capsule), 24 mcg= 1 cap, PO, bid, 3 refills mirtazapine(mirtazapine 15 mg oral tablet), 15 mg= 1 tab, PO, qhs ocular lubricant(Retaine MGD) omeprazole(omeprazole 40 mg oral delayed release capsule), 40 mg= 1 cap, PO, Daily ondansetron(ondansetron 8 mg oral tablet, disintegrating), 1 tab, PO, bid potassium chloride(Potassium Chloride (Zyl-Uxsd-Cnh 10) 10 mEq oral tablet, extended release), 4 tab, PO, Daily sucralfate(sucralfate 1 g oral tablet), 1 g= 1 tab, PO, qid venlafaxine(venlafaxine 25 mg oral tablet), 25 mg= 1 tab, PO, tid Allergies Adhesive bandagerash, rips skin Advair HFAunable to ambulate, Rigidity AllegraMuscle Rigidity Allergy Not found in Searchrips skin Betadineblisters Cymbaltarigidity KeflexDiarrhea, Rash LatexRash Lyricamuscle aches, pains, stiff Neurontindizzy and fell TiZANidine Hydrochlorideextreme hypotension azithromycinRash baclofenunknown diazepamunknown fentaNYLrespirations issues fexofenadineunknown fluconazoleflu sx iodineRash, blisters methadonenightmares, mental status change salmeterolworsens spascticity traMADolnerve tingling/sensations Social History Smoking Status Former Smoker, quit > 1 yr Alcohol - Denies Alcohol Use Home/Environment - Low Risk Lives with:Spouse Living situation:Home with assistance Alcohol abuse in household:No Substance abuse in household:No Smoker in household:No Substance Abuse - High Risk - Comments: Multiple benzodiazepines and opioid prescriptions Tobacco - Denies Tobacco Use Family History Diabetes: Unknown. Heart disease: Unknown. Stroke: Unknown. Thyroid cancer: Mother, Sister and Brother. Health Status Family Member(s) Immunizations Vaccine Date Status SARS-CoV-2 mRNA (fheniplpwll-ovtn-cth) 08/13/2021 Recorded Comments : 2022-02-21: Historical information-source unspecified SARS-CoV-2 (COVID-19) mRNA BNT-162b2 vax 01/15/2021 Recorded Comments : 2022-02-21: Historical information-source unspecified zoster vaccine, inactivated 10/11/2020 Recorded Comments : 2022-02-21: Historical information-source unspecified SARS-CoV-2 (COVID-19) mRNA-1273 vaccine 04/24/2020 Recorded Comments : 2022-02-21: Historical information-source unspecified SARS-CoV-2 (COVID-19) mRNA-1273 vaccine 03/26/2020 Recorded Comments : 2022-02-21: Historical information-source unspecified tetanus/diphtheria/pertuss, acel (Tdap) 10/17/2019 Recorded Comments : 2022-02-21: Historical information-source unspecified pneumococcal 13-valent vaccine 10/17/2019 Recorded Comments : 2022-02-21: Historical information-source unspecified zoster vaccine live 02/02/2014 Recorded Comments : 2022-02-21: Historical information-source unspecified pneumococcal 23-valent vaccine 12/01/2013 Recorded Comments : 2022-02-21: Historical information-source unspecified influenza virus vaccine, H1N1 01/24/2009 Recorded Comments : 2022-02-21: Historical information-source unspecified tetanus/diphtheria/pertuss, acel (Tdap) 11/04/2007 Recorded Comments : 2022-02-21: Historical information-source unspecified pneumococcal 23-valent vaccine 11/11/2001 Recorded Comments : 2022-02-21: Historical information-source unspecified tetanus toxoids-diphtheria, Td (Adult) 07/20/1998 Recorded Comments : 2022-02-21: Historical information-source unspecified Recommendations Health Maintenance Pending(in the next year) OverDue Adult Influenza Vaccine due08/16/23and every 1year Due Adult Social Determinants of Health Screening due10/22/23Unknown Frequency Breast Cancer Screening due10/22/23Unknown Frequency Hepatitis C Screening due10/22/23One-time only Medicare Annual Wellness Visit due10/22/23and every 1year Osteoporosis Screening due10/22/23One-time only Pneumococcal Vaccine Older Adults due10/22/23One-time only Shingles Vaccine due10/22/23One-time only Due In Future Body Mass Index not due until06/18/24and every 366day Satisfied(in the past 1 year) Satisfied Body Mass Index on06/18/23.Satisfied by KENRICK Santiago Paula Depression Follow Up Plan on10/22/23.Satisfied by FLOWER Cole Erin Lipid Screening on03/19/23.Satisfied by Contributor_system, [facility] Electronic Signature on File Electronically Reviewed/Signed by: Lelia Benton DO Author Signature Dt/Tm:10/22/2023 11:21 AM Department of Family Medicine [facility] Patient Care team information Care Team Personnel Name: MONSE Murray, Jennifer Vicente Position: Physician Asst Exmpt - Family Med Member Role: Lifetime Relationship Address: [address] [place] [address] [place] Name: MD Thomas Natalia Position: Resident Member Role: Primary Care Provider Address: [address] [place] [address] [place] Name: MD Duncan, Elisa Position: Physician - Anesthesiologist Member Role: Lifetime Relationship Address: [address] [place] [id number] [place] Name: MD Cristal, Prashant Fair Position: Physician - Anesthesiologist Member Role: Lifetime Relationship Address: [address] [place] [address] Care Team Related Persons Name: ANTHONY MARIN"
[2023-10-30] MEDS: HYDROcodone/ACETAMINOPHEN 10/325 TAB PO PRN (22:13)
[2023-10-30] MEDS: LORazepam 1 MG TAB PO SCH ×2 (22:14→23:46)
[2023-10-30] MEDS: ALPRAZolam 0.5 MG TABLET PO PRN (22:25)
[2023-10-30] MEDS: MIRTAZAPINE TAB 15 MG TAB PO SCH (22:25)
[2023-10-30] MEDS: ENOXAPARIN INJ 40 MG/0.4 ML SYR SQ SCH (22:31)
[2023-10-30] MEDS: Patient's HEIGHT &/or WEIGHT Needed STA (23:46)
[2023-10-30] MEDS: POTASSIUM CHLORIDE CRTAB 20 MEQ TABCR PO SCH (23:54)
[2023-10-31] MEDS: LORazepam 1 MG TAB PO PRN ×2 (05:44→16:47)
[2023-10-31 06:50] LABS: Basophils # (auto) 0.05 K/uL (0.00-0.20); Basophils % (auto) 0.6 %; Eosinophils # (auto) 0.17 K/uL (0.00-0.50); Eosinophils % (auto) 1.9 %; Hematocrit (blood only) 45.4 % (37.0-47.0); Hemoglobin 14.5 g/dl (12.0-16.0); Immature Granulocytes # (auto) 0.03 K/uL (0.01-0.20); Immature Granulocytes % (auto) 0.3 %; Lymphocytes # (auto) 2.35 K/uL (1.20-3.40); Lymphocytes % (auto) 26.6 %; Mean Corpuscular Hemoglobin 28.6 pg (25.0-34.0); Mean Corpuscular Hgb Conc 31.9 g/dL (32.0-36.0); Mean Corpuscular Volume 89.5 fL (80.0-100.0); Mean Platelet Volume 10.3 fL (9.4-12.4); Monocytes # (auto) 0.52 K/uL (0.11-0.59); Monocytes % (auto) 5.9 %; Neutrophils % (auto) 64.7 %; Platelet Count 262 K/uL (130-400); RDW Coefficient of Variation 15.1 % (11.5-14.5); RDW Standard Deviation 48.5 fL (36.4-46.3); Red Blood Count 5.07 M/uL (4.20-5.40); White Blood Count 8.82 K/ul (4.8-10.8)
[2023-10-31 07:03] LABS: BUN Creatinine Ratio 28.3 (10-20); Calcium 8.8 mg/dl (8.6-10.3); Creatinine Clr Calc Pharmacy 103.1 ml/min; Est GFR (Non-African American) 92.4 ml/min; Potassium 3.2 mmol/L (3.5-5.1)
[2023-10-31 07:10] LABS: Troponin I High Sensitivity 12.9 pg/ml (0-14)
[2023-10-31] MEDS: BUMETANIDE 2 MG in SYRINGE 0 ML IV SCH (08:22)
[2023-10-31] MEDS: PANTOprazole 40 MG TAB PO SCH (08:22)
[2023-10-31] MEDS: VENLAFAXINE HCL 50 MG TAB PO SCH (08:22)
[2023-10-31] MEDS: FAMOTIDINE 20 MG TAB PO SCH (08:22)
[2023-10-31] MEDS ORDERED: POTASSIUM CHLORIDE CRTAB 20 MEQ TABCR PO SCH (09:00)
[2023-10-31] MEDS ORDERED: ALPRAZolam 0.5 MG TABLET PO SCH (09:00)
[2023-10-31] MEDS: HYDROcodone/ACETAMINOPHEN 10/325 TAB PO PRN (16:47)
--- NOTE | 2023-10-31 16:51 | Hospitalist Progress Note ---
Date of Service October 31, 2023 Assessment & Plan (1) Hypoxia: Plan: Improved. Appears to have been a mild CHF exacerbation superimposed on chronic respiratory failure (see below) (2) Restrictive lung disease: Plan: Her restrictive lung disease appears to be an interplay of neuromuscular weakness due to her cerebral palsy, as well as OHS/PEEWEE. We discussed this appears to be worsening (as evidenced by her worsening bicarb on basic metabolic panel, and I do worry that she is slowly worsening with chronic respiratory failureI suspect predominantly chronic hypercapnic respiratory failure with intermittent bouts of acute hypoxia). We discussed that not treating it really would allow her respiratory failure to slowly worsen; we discussed that generally the best and frontline treatment would be some form of BiPAPand knowing the critical importance of it may allow her to try longerand try maybe not just when she is asleep, but rather even during the day given that predominantly she appears to hypoventilate 24/7and we discussed that even wearing her BiPAP while she is watching TV might be more tolerable than wearing it when she is trying to sleep, even though obviously wearing it while she is asleep would be preferred. She does appear to need supplemental oxygen as neededbut we discussed that this could be something that could be problematic if she uses it ad curt., given that with her chronic hypercapnia she might be a patient whose respiratory drive is more triggered by hypoxiaI discussed this as well as demonstratedand expressed good understanding. Overnight pulse ox/a.m. blood gasand assuming that she qualifies right out of the hospital for OHS, we will try to set up a device for her SHANTHI. Discussed weight loss would likely be beneficial, but also discussed that with her immobility it is definitely difficult for her to effectively exercise to burn off more calories than she takes in. (3) Severe obstructive sleep apnea: Plan: See abovesuspect more of an OHS then regular PEEWEE. Overnight pulse ox, a.m. blood gas (4) CHF exacerbation: Plan: acute on chronic diastolic CHFacute on chronic HFpEFappears to have improved with IV Bumex. Reduce to home dosing. This appears to be the main reason that her hypoxia had worsened leading to admission, but again her chronic respiratory failure appears to be much more related to the restrictive lung disease as outlined above. (5) Type I CRPS (complex regional pain syndrome): Plan: continue home meds (6) Gastroparesis: Plan: Sucralfate PRN (7) Cerebral palsy: Plan Disposition: anticipate home tomorrow Full code Heart healthy, low-sodium diet (1800 mL fluid restriction) VTE PPx: Lovenox 40 mg SQ q24h Admission and Anticipated Discharge Date Admission Date: October 30, 2023 Subjective Breathing feeling better. Extensive discussions with patient with over multiple visits today. Discussed with case management, respiratory as we ll. Notes she struggled with BiPAP, but did not necessarily try multiple different masks, etc. She asks about weight loss Review of Systems Review of Systems: All systems reviewed & are unremarkable except as noted in HPI & below Physical Exam Physical Exam: in general she is awake and alert pleasant no distress. HEENT normocephalic atraumatic mucous membranes moist. Breathing unlabored lungs overall clear no rales rhonchi or wheezes good effort no accessory muscle use. Results & Data Results & Data Vital Signs (Past 12 Hours) Vital Signs Temp Pulse Pulse Pulse Pulse Pulse Resp 10/31/23 15:26 98.2 F 69 16 10/31/23 15:14 78 86 78 10/31/23 14:07 85 10/31/23 11:44 98.4 F 75 16 10/31/23 07:51 10/31/23 07:43 98.4 F 68 16 10/31/23 07:30 80 10/31/23 05:48 98.1 F 76 16 Resp Resp Resp BP Pulse Ox Pulse Ox Pulse Ox 10/31/23 15:26 177/95 H 91 10/31/23 15:14 18 16 18 92 87 L 10/31/23 14:07 10/31/23 11:44 177/98 H 94 10/31/23 07:51 10/31/23 07:43 193/78 H 92 10/31/23 07:30 10/31/23 05:48 187/82 H 93 Pulse Ox O2 Del Method O2 Flow Rate 10/31/23 15:26 Room Air 10/31/23 15:14 94 2 10/31/23 14:07 10/31/23 11:44 Room Air 10/31/23 07:51 Room Air 10/31/23 07:43 Room Air 10/31/23 07:30 10/31/23 05:48 Room Air PG Care Time/CCT Total # of Minutes Spent Total Time Spent with Patient: Total time spent is greater than 50% in coordination of care (as documented) at patient's floor/unit and/or counseling patient: Coding Level of Care Code 32676 SUB INP/OBS CARE MIN Diagnoses Hypoxia R09.02 Restrictive lung disease J98.4 Severe obstructive sleep apnea G47.33 CHF exacerbation I50.9 Heart failure type: unspecified Type I CRPS (complex regional pain syndrome) G90.50 Gastroparesis K31.84 Cerebral palsy G80.9 (4) CHF exacerbation Heart failure type: unspecified Qualified Code(s): I50.9 - Heart failure, unspecified
--- NOTE | 2023-10-31 16:52 | Billing Data ---
Date of Service October 31, 2023 Coding Level of Care Code 87769 SUB INP/OBS CARE MIN
[2023-10-31] MEDS: VENLAFAXINE HCL 37.5 MG TAB PO SCH (17:35)
[2023-10-31] MEDS: ALPRAZolam 0.5 MG TABLET PO PRN (20:50)
[2023-10-31] MEDS: ONDANSETRON 8MG OD TAB PO PRN (21:06)
[2023-10-31] MEDS ORDERED: LORazepam 1 MG TAB PO SCH (22:00)
[2023-11-01 06:32] LABS: HCO3 ABG 44 mmol/L (19-24); Oxygen Saturation ABG 98.6 % (90-95); PCO2 ABG 64 mmHg (35-46); PO2 ABG 88 mmHg (80-95); pH ABG 7.44 (7.35-7.45)
[2023-11-01 06:39] LABS: Allen Test Pos (Pos)
[2023-11-01 06:43] LABS: Basophils # (auto) 0.05 K/uL (0.00-0.20); Basophils % (auto) 0.6 %; Eosinophils # (auto) 0.23 K/uL (0.00-0.50); Eosinophils % (auto) 2.7 %; Hematocrit (blood only) 48.2 % (37.0-47.0); Immature Granulocytes # (auto) 0.03 K/uL (0.01-0.20); Immature Granulocytes % (auto) 0.4 %; Lymphocytes # (auto) 2.47 K/uL (1.20-3.40); Lymphocytes % (auto) 28.9 %; Mean Corpuscular Hemoglobin 28.4 pg (25.0-34.0); Mean Corpuscular Hgb Conc 31.1 g/dL (32.0-36.0); Mean Corpuscular Volume 91.1 fL (80.0-100.0); Mean Platelet Volume 9.9 fL (9.4-12.4); Monocytes # (auto) 0.44 K/uL (0.11-0.59); Monocytes % (auto) 5.1 %; Neutrophils # (auto) 5.34 K/uL (1.40-6.50); Neutrophils % (auto) 62.3 %; Platelet Count 254 K/uL (130-400); RDW Coefficient of Variation 15.1 % (11.5-14.5); RDW Standard Deviation 49.6 fL (36.4-46.3); Red Blood Count 5.29 M/uL (4.20-5.40); White Blood Count 8.56 K/ul (4.8-10.8)
[2023-11-01 07:13] LABS: BUN Creatinine Ratio 26.1 (10-20); Calcium 8.6 mg/dl (8.6-10.3); Creatinine Clr Calc Pharmacy 98.9 ml/min; Est GFR (African American) 102.2 ml/min; Est GFR (Non-African American) 88.2 ml/min; Potassium 3.6 mmol/L (3.5-5.1)
[2023-11-01 07:56] VITALS: RESP 16; TEMP 97.5; O2SAT 94
[2023-11-01] MEDS: OMEGA-3 (PURIFIED FISH OIL) 1 GM CAP PO SCH (08:23)
[2023-11-01] MEDS: CHOLECALCIFEROL 10 MCG (400 UNITS) TAB PO SCH (08:23)
[2023-11-01] MEDS: CALCIUM CARBONATE 500 MG CHEWABLE TAB PO SCH (08:23)
[2023-11-01] MEDS: BUMETANIDE 1 MG TAB PO SCH (08:24)
[2023-11-01] MEDS: ESTROGENS, CONJUGATED 0.45 MG TAB PO SCH (08:28)
[2023-11-01] MEDS: POTASSIUM CHLORIDE CRTAB 20 MEQ TABCR PO SCH (08:30)
[2023-11-01 12:28] VITALS: BP 177/95; PULSE 79
--- NOTE | 2023-11-01 13:06 | Electrocardiogram Report ---
Test Reason : Blood Pressure : */* mmHG Vent. Rate : 85 BPM Atrial Rate : 85 BPM P-R Int : 188 ms QRS Dur : 92 ms QT Int : 390 ms P-R-T Axes : 40 -34 69 degrees QTcB Int : 464 ms Poor data quality, interpretation may be adversely affected Normal sinus rhythm Left axis deviation Minimal voltage criteria for LVH, may be normal variant ( [place] product ) T wave abnormality, consider anterior ischemia Abnormal ECG When compared with ECG of 17-Aug-2023 17:14, T wave inversion now evident in Anterior leads No significant change Confirmed by Marcelo John ([id number]) on 11/01/2023 1:05:58 PM Referred By: Confirmed By: Marcelo John
--- NOTE | 2023-11-01 19:21 | Discharge Summary ---
Discharge Summary Date of Service November 01, 2023 Principal Dx & Hospital Course #1 = Principal Diagnosis (1) Hypoxia: Improved. Appears to have been a mild CHF exacerbation superimposed on chronic respiratory failure (see below) (2) Restrictive lung disease: Her restrictive lung disease appears to be an interplay of neuromuscular weakness due to her cerebral palsy, as well as OHS/PEEWEE. We discussed this appears to be worsening (as evidenced by her worsening bicarb on basic metabolic panel, and I do worry that she is slowly worsening with chronic respiratory failureI suspect predominantly chronic hypercapnic respiratory failure with intermittent bouts of acute hypoxia). We discussed that not treating it really would allow her respiratory failure to slowly worsen; we discussed that generally the best and frontline treatment would be some form of BiPAPand knowing the critical importance of it may allow her to try longerand try maybe not just when she is asleep, but rather even during the day given that pre dominantly she appears to hypoventilate 24/7and we discussed that even wearing her BiPAP while she is watching TV might be more tolerable than wearing it when she is trying to sleep, even though obviously wearing it while she is asleep would be preferred. She does appear to need supplemental oxygen as neededbut we discussed that this could be something that could be problematic if she uses it ad curt., given that with her chronic hypercapnia she might be a patient whose respiratory drive is more triggered by hypoxiaI discussed this as well as demonstratedand expressed good understanding. Overnight pulse ox/a.m. blood gasand assuming that she qualifies right out of the hospital for OHS, we will try to set up a device for her SHANTHI. Discussed weight loss would likely be beneficial, but also discussed that with her immobility it is definitely difficult for her to effectively exercise to burn off more calories than she takes in. The update on the day of discharge is that a trilogy device is being set up, home oxygen was set up. Educated patient again. Given that we had had these discussions a year ago and she had not been able to tolerate any type of pressure support device but also sounded like she was may be unaware of the severity of her respiratory insufficiency, we did discuss that essentially she is worsening with chronic respiratory insufficiencybecause she had not in her own assessment given the best effort to tolerating BiPAP before, but also because my concern of her worseningI did discuss openly that this is a respiratory failure that could lead to her demisebut to try to reassure her, I noted that untreated it would probably still take several yearsafter I had seen her, I was informed that she mistakenly took this to mean that she only had a few years to live no matter whatI let nursing know what I had said to her and what I had said to her and tried to make it extremely clear to them whenever I said that that this was only to reference the severity of her illness to ensure that she would know this is something that truly needs to be managed, and could leave to an inevitable decline, but tried to make it clear that that was not the case if she was treating thingsI offered to revisit, but was unfortunately unable to immediately eklutna back to the patientnoted to nursing that if they definitely wanted to talk to me again I would be able to be back around in about an houraround that time I circled back to the room and she had already left. Patient's COPD/restrictive lung disease has progressed to a stage IV testing shows elevated pCO2. I am ordering a bilevel device to treat this ventilatory impairment. Sleep apnea has been considered and is not the dominant feature as a contributing factor since the patient shows far more signs and symptoms consistent with restrictive lung disease and chronic ventilatory failure due to her neuromuscular condition. (3) Severe obstructive sleep apnea: See abovesuspect more of an OHS/Restrictive lung disease then regular PEEWEE. Overnight pulse ox, a.m. blood gas noted (4) CHF exacerbation: acute on chronic diastolic CHFacute on chronic HFpEFappears to have improved with IV Bumex. Reduce to home dosing. This appears to be the main reason that her hypoxia had worsened leading to admission, but again her chronic respiratory failure appears to be much more related to the restrictive lung disease as outlined above. (5) Type I CRPS (complex regional pain syndrome): continue home meds (6) Gastroparesis: Sucralfate PRN (7) Cerebral palsy: Plan safe for home. See discharge instructions. Close PCP follow-up Notes For Next Care Provider Medication Changes From Visit none Admission HPI Per Admitting Provider Makeda is a 68-year-old female with PMH of GERD, acute gastric pain, cerebral palsy, gastroparesis, HTN, tubular adenoma, osteoporosis, spastic quadriparesis, depression, PTSD, severe PEEWEE, lumbar spinal stenosis, anxiety, and depression. She presented on 10/29 for low pulse ox saturations at home, headache, and intermittent/mild chest pain. This has been worsening for the past 3 days. Her headache tends to match her low pulse ox. She reports it has gotten down to 71 to 88% at home, but returns to >90% with deep breaths. Her last headache and chest pain was this morning, and lasted around 15 minutes. No sick contacts. She denies SOB at rest or with exertion. However, she does note she has had an expiratory wheeze recently which is new for her. She had a temperature of 98.7 F yesterday, which she reports is high for her as she tends to run low. Patient took her regular morning medications today; no recent change in medicati ons. She reports good compliance with taking her Bumex. She also endorses a 3 pound weight loss over the past week. No change in diet. Patient reports that she watches her salt intake (reports she probably does not eat enough salt). She does not use supplemental oxygen at baseline. She does not use a CPAP at night as she has been unable to tolerate in the past. No history of COPD or asthma. She denies smoking, tobacco use, recent alcohol use. No sick contacts. No history of DVT/PE. Patient is hypertensive at 176/103 at time of admission; SpO2 96% on 1L NC. ED course: Bumex 2 mL IV ROS: Patient endorses headache, low oxygen saturations, wheezing, and mild intermittent chest pain. Patient denies fever, chills, night sweats, dizziness, lightheadedness, SOB at rest, SOB with exertion, pleuritic CP, cough, abdominal pain, N/V/D, or recent swelling of the legs. Updated Medication List Medication Instructions Recorded Confirmed Type albuterol sulfate 90 mcg/actuation 1 puff inhalation UD PRN Shortness 11/12/18 10/30/23 History aerosol inhaler Of Breath azelastine 137 mcg (0.1 %) nasal 1 spray intranasal UD PRN Allergy 11/12/18 10/30/23 History spray Symptoms levalbuterol HCl 1.25 mg/3 mL 1.25 mg inhalation UD PRN 11/12/18 10/30/23 History solution for nebulization Shortness Of Breath lorazepam 2 mg tablet 2 mg PO Q4 09/07/19 10/30/23 History calcium carbonate (Calcium 500) 500 mg PO QAM 11/10/19 10/30/23 History cholecalciferol (vitamin D3) 25 2,000 mcg PO QAM 11/10/19 10/30/23 History mcg (1,000 unit) tablet (Vitamin D3) omega-3 fatty acids 1,000 mg PO QAM 11/10/19 10/30/23 History famotidine 20 mg tablet (Pepcid AC) 20 mg PO DAILY #30 tabs 11/18/19 10/30/23 Rx hydrocodone 10 mg-acetaminophen 2 tab PO Q4H PRN Pain 03/15/20 10/30/23 History 325 mg tablet ondansetron 8 mg disintegrating 8 mg PO Q8H PRN Nausea #90 tabs 01/17/21 10/30/23 Rx tablet mirtazapine 30 mg tablet 30 mg PO HS 11/12/22 10/30/23 History omeprazole 20 mg capsule,delayed 20 mg PO DAILY Acid Reflux 11/12/22 10/30/23 History release potassium chloride 10 mEq 20 meq PO DAILY 11/12/22 10/30/23 History tablet,extended release venlafaxine 25 mg tablet 75 mg PO DAILY 01/06/23 10/30/23 History bumetanide 2 mg tablet 2 mg PO DAILY #30 tabs 01/13/23 10/30/23 Rx nystatin-triamcinolone 100,000 1 applic topical QID PRN Rash 10 01/19/23 10/30/23 Rx unit/g-0.1 % topical cream days #60 grams alprazolam 1 mg tablet 1 mg PO DAILY 10/30/23 10/30/23 History conjugated estrogens 0.45 mg 0.45 mg PO QAM 10/30/23 10/30/23 History tablet (Premarin) estradiol 0.01% (0.1 mg/gram) 0.5 g vaginal [id number] PRN Other 10/30/23 10/30/23 History vaginal cream sucralfate 1 gram tablet 1 g PO BID PRN Other 10/30/23 10/30/23 History Hospital Stay Data Consultations 10/30/23 18:38 ED Decision to Admit Stat Pending Results Patient Have Any Pending Studies at Discharge: No Discharge Instructions Given to Patient (Per Discharging Provider) multifactorial respiratory problems: - As we discussed, your breathing situation is quite complicatedthe main "driving factor" is the cerebral palsy and neuromuscular weakness, this is compounded by the sleep apnea/hypoventilation respiratory physiologyand all of this combines to make it so that you do not move air nearly as well as your body would need you to. - You ended up in the hospital with low oxygen numbersbut this was really due to a minor amount of fluid retention ("a congestive heart failure episode" rather than truly a "chronic congestive heart failure picture")but because your breathing is so tenuous, it did not take much to "tip you over the edge" - the fluid has been pulled off, and as long as you stay under 2000 mg of sodium on the day (sodium makes her kidneys retain more fluid)I doubt you will run into much recurrent fluid retention problems - the main problem with your breathing is far more "low ventilation"i.e. that you do not really move much air when you are breathinglargely because of the neuromuscular weakness/etc. As we discussed, the deep breathing exercises you do will help keep those respiratory muscles as strong as that can Stephanie would definitely encourage you to continue with that. As we discussed, a weight loss journey is reasonably unfair with the hurdles that you faced with your neuromuscular weaknessbut anything that you are able to do to help with weight loss would certainly be of benefit. At the same time, a BiPAP/trilogy type device (that has higher pressure to assist when you inhale, and a lower pressure when you exhale to essentially act as a "pop-off valve") really can be quite helpful here. We have a referral/prescription situation underwaybut unfortunately with it being the weekend, the device will likely not be able to be set up until next week. As we discussed, it is really critical to get used to it as best as you canwork with the company for different masks, or find any way feasible to have the mask be as comfortable as you can. - In a perfect world, because this type of breathing dysfunction is far worse when you sleep, ideally we get to a point where you are wearing it all the time when you are asleep. That said, given that we are primarily dealing with a neuromuscular weakness problem, wearing it at any point will likely be of some degree of benefit. And while you are getting used to it/while you are trying out different masks, etc., while it might seem weird to wear it when you are awake/watching TV/etc., it might be the best way to get used to things, and having assistance with ventilation (moving more air when you breathe) will be of benefit to you at any time of day. - To that end, when it first getting used to the device, I would say wear it when you are awake to get used to it, and certainly if you can/want to try to wear it while you are asleep that even better, but the more hours of day you wear it the better right nowif you get to where you are able to wear it all night, that is great and you can probably start to not wear it during daylight hours, but for now essentially to repeat myselfthe more hours a day you can wear it the better. - We have gotten supplemental oxygen set up for you as wellas we discussed, this is really only if your oxygen numbers are lower, or if you need it to help you feel better when you are short of breath. As we demonstrated when I put the pulse ox on my finger and help my breath for as long as I can, a normal "respiratory drive" is triggered by elevations of carbon dioxide in your bloodstream rather than dropping oxygenwith your baseline carbon dioxide levels, it is possible that your respiratory drive is no longer triggered by carbon dioxide, and rather triggered by dropping oxygenthis makes it so that the oxygen can very much be a "double edge sword"I would definitely not wear it when you are asleep, and when you are wearing it at first, I would definitely want your around so that if you start to look more sleepy with the oxygen on he can have you assessed if neededagain because you did well on the oxygen here I highly doubt that having oxygen will essentially "make you forget to breathe"but at first whenever you have it at home, I would have your keep an eye on you. To be clear, given discrepancies across computer systems with your medication list, we have made no changes to your regular medications Total Time Total Time Spent Total Time Spent (In Minutes): >30
--- NOTE | 2023-11-01 19:22 | Billing Data ---
Date of Service November 01, 2023 Coding Level of Care Code 31227 SUB INP/OBS CARE MIN
--- NOTE | 2023-11-02 10:38 | Communication Note ---
Date of Service: November 02, 2023 Patient has Chronic Respiratory failure due to Cerebral Palsy. BiPAP was tried and the patient remains hypercapnic due to the inability to provide noninvasive ventilation of adequate degree. Continuous alarm systems and backup are required for optimal management due to power outage. This patient is at high risk for respiratory failure without noninvasive ventilation at home. This could prevent repeated hospital admissions and improve the quality of life for the patient.
== END 2023-11-01 13:55 | disposition home or self-care (01) | DRG 291 ==
LOC: SUATTDRO → ED 16:12 → 2N 19:39 → SUATTDRO 19:39 → 2N 20:47

== ENCOUNTER 2024-03-22 19:34 | Inpatient (IN) ==
[2024-03-22 20:08] LABS: iSTAT Creatinine 0.9 mg/dl (0.6-1.3); iSTAT Ionized Calcium 1.21 mmol/l (1.12-1.32)
[2024-03-22 20:25] LABS: Basophils # (auto) 0.08 K/uL (0.00-0.20); Basophils % (auto) 0.7 %; Eosinophils % (auto) 0.9 %; Hemoglobin 14.8 g/dl (12.0-16.0); Immature Granulocytes # (auto) 0.14 K/uL (0.01-0.20); Immature Granulocytes % (auto) 1.2 %; Lymphocytes # (auto) 2.49 K/uL (1.20-3.40); Lymphocytes % (auto) 21.3 %; Mean Corpuscular Hemoglobin 30.3 pg (25.0-34.0); Mean Corpuscular Hgb Conc 32.2 g/dL (32.0-36.0); Mean Corpuscular Volume 94.3 fL (80.0-100.0); Mean Platelet Volume 10.3 fL (9.4-12.4); Monocytes # (auto) 0.63 K/uL (0.11-0.59); Monocytes % (auto) 5.4 %; Neutrophils # (auto) 8.24 K/uL (1.40-6.50); Neutrophils % (auto) 70.5 %; Platelet Count 259 K/uL (130-400); RDW Coefficient of Variation 14.1 % (11.5-14.5); Red Blood Count 4.88 M/uL (4.20-5.40); White Blood Count 11.68 K/ul (4.8-10.8)
[2024-03-22 20:35] LABS: Albumin Globulin Ratio 1.2 (0.9-2); BUN Creatinine Ratio 19.2 (10-20); Bilirubin,Total 0.6 mg/dl (0.2-1.0); Calcium 9.3 mg/dl (8.6-10.3); Creatinine Clr Calc Pharmacy 86.8 ml/min; Globulin 3.4 gm/dl (2.5-4.0); Total Protein 7.4 gm/dl (6.0-8.3)
[2024-03-22 20:57] LABS: Adenovirus PCR Not Detected (NotDetected); Bordetella parapertussis PCR Not Detected (NotDetected); Bordetella pertussis PCR Not Detected (NotDetected); Chlamydia pneumoniae PCR Not Detected (NotDetected); Coronavirus 229E PCR Not Detected (NotDetected); Coronavirus CoV-2 (COVID19)PCR Not Detected (NotDetected); Coronavirus HKU1 PCR Not Detected (NotDetected); Coronavirus NL63 PCR Not Detected (NotDetected); Coronavirus OC43PCR Not Detected (NotDetected); Human Metapneumovirus PCR Not Detected (NotDetected); Influenza A PCR Not Detected (NotDetected); Influenza B PCR Not Detected (NotDetected); Mycoplasma pneumoniae PCR Not Detected (NotDetected); Parainfluenza Virus 1 PCR Not Detected (NotDetected); Parainfluenza Virus 2 PCR Not Detected (NotDetected); Parainfluenza Virus 3 PCR Not Detected (NotDetected); Parainfluenza Virus 4 PCR Not Detected (NotDetected); Respiratory Syncytial VirusPCR Not Detected (NotDetected); Rhinovirus/Enterovirus PCR Not Detected (NotDetected)
--- NOTE | 2024-03-22 21:03 | XRay Report ---
Exam(s): XR CXR 1 VIEW EXAM: XR Chest, 1 View CLINICAL HISTORY: Reason for exam: SOB. TECHNIQUE: Frontal view of the chest. COMPARISON: 10/30/2023 FINDINGS: Lungs: Mild central pulmonary vascular congestion. No consolidation. Pleural space: Trace left pleural effusion. No pneumothorax. Heart: Cardiomegaly. Mediastinum: Unremarkable. Normal mediastinal contour. Bones/joints: Unremarkable. No acute fracture. IMPRESSION: CHF with trace left pleural effusion Electronically signed by: Milton Lowe MD 03/22/24 21:01 PM
[2024-03-22] MEDS ORDERED: AZITHROMYCIN 500 MG VIAL IV STA (23:11)
--- NOTE | 2024-03-22 23:14 | Emergency Department Note ---
Impression & Plan Hypoxia Admission ED Provider Note HPI: History obtained from patient. The patient is a 68-year-old female with history of CHF, physical deconditioning, spastic quadriparesis/cerebral palsy, on home oxygen intermittently, presents the emergency department with a chief complaint of hypoxia. Patient is also noted have a fever at the time of arrival. Patient's states that the patient seemed to be having some difficulty wearing her CPAP overnight and seemed to be having some issues with her oxygen when he checked. On arrival here to the ED the patient was hypoxic on room air to 86%, this did improve with nasal cannula oxygen. Patient denies any chest pain but states she does have some shortness of breath. Patient is febrile on arrival. ROS: - Per HPI Differential Diagnosis: Pneumonia, viral upper respiratory infection with cough, sepsis, acute CHF exacerbation, amongst other potential pathologies. *Outpatient medications and allergy history reviewed. PE: General: Alert, morbidly obese HEENT: Normocephalic, trachea midline Eyes: Extraocular eye movement is intact, no scleral erythema Pulmonary: Diminished bilateral breath sounds Cardio: Regular rate and rhythm GI: Abdomen is soft to palpation : No suprapubic tenderness MSK: No evidence of trauma or malformation of the extremities, no edema Skin: No evidence of rash Neuro: Alert, no focal deficits Psychiatric: Cooperative INDEPENDENT INTERPRETATIONS: executive vice president: (As interpreted by myself): - An order was placed for continuous cardiac monitoring - Patient was noted to be in sinus rhythm with a rate of 80 EKG: (As interpreted by myself): Rate: 90 Rhythm: Normal sinus rhythm Intervals: Within normal limits ST changes: No ST elevation Time: 1949 Chest x-ray: (As interpreted by myself): Left-sided pleural effusion Interventions provided in ED: -IV ceftriaxone, IV azithromycin Medical Decision Making: IV was established and lab work obtained, patient was placed on supplemental oxygen for presenting hypoxia. Lab work shows a mild leukocytosis at 11.68, hemoglobin is normal, platelet count is normal, venous blood gas does show a normal pH with pCO2 elevation at 75, CMP does not show any critical findings. Procalcitonin is low. Given the patient's fever, viral panel testing was obtained that is negative. Blood cultures were drawn and the patient was treated for presumptive pneumonia given her hypoxia with left-sided pleural effusion with IV ceftriaxone and IV azithromycin. I discussed all the above findings with the patient and with her spouse at the bedside and at this time they are in agreement for admission for the patient's hypoxia. Case was discussed with the on-call hospitalist, Dr. Hung, and the patient was placed for admission in stable condition. Consultants/Discussions held with other healthcare providers: -Hospitalist, Dr. Hung Disposition discussion held by myself with: -Patient and patient's at the bedside * CRITICAL CARE TIME: ( 33 ) minutes -Time spent in management of patient with hypoxia on room air at 86% requiring supplemental oxygen for correction, interpretation of diagnostic studies, discussion with other healthcare providers and arrangement of admission. Diagnosis: 1. Hypoxia, acute 2. Fever, acute 3. Leukocytosis, acute 4. Cough, acute Disposition: Admission Ranjith Renae DO Emergency Medicine Past Med/Surg History Problem List (Updated 03/23/24 @ 03:53 by Ranjith Renae DO) Hypoxia (Acute) Pneumonia Acute on chronic respiratory failure with hypoxia and hypercapnia Multiple thyroid nodules Hyperparathyroidism Dietary counseling and surveillance Obesity Inconclusive mammogram Complex sleep apnea syndrome Neuromuscular respiratory weakness Type I CRPS (complex regional pain syndrome) (~01/01/24) Restrictive lung disease reason for inhalers/nebulizer CHF exacerbation (Acute) Hypoxia (Acute) Morbid obesity Nocturnal hypoxemia Severe obstructive sleep apnea Lumbar spinal stenosis Obesity hypoventilation syndrome Post traumatic stress disorder Anxiety Physical deconditioning Abnormal ankle brachial index Lymphedema Venous stasis ulcers Depression Delusional disorder Hearing loss Decubital ulcer Ataxia Cervical dystonia Spastic quadriparesis (Acute) Hormone replacement therapy Breast pain, right Osteoporosis screening Tubular adenoma Gastroparesis Hypertension Chronic back pain Cerebral palsy Early satiety Urinary urgency Vasomotor symptoms due to menopause Epigastric pain GERD (gastroesophageal reflux disease) Medical History Edema, pitting Shortness of breath Altered mental status Fluid overload Hypoxemia GERD (gastroesophageal reflux disease) Baclofen pump failure History of anesthesia reaction pt states that the last time she had an EGD at [facility] they had the blood pressure cuff on the same arm as her IV and she never received enough anesthesia because of this and she was in pain throughout all the whole experience Nerve pain Surgical History History of left hip replacement S/P endoscopy History of arthroscopy of left knee History of arthroscopy of right knee History of total left hip replacement History of colonoscopy History of appendectomy History of oophorectomy, unilateral right History of esophagogastroduodenoscopy (EGD) History of tooth extraction History of tonsillectomy H/O: hysterectomy with unilateral oophorectomy Family History Father Family history of diabetes mellitus Myocardial infarction Other No family history of adverse response to anesthesia Denies family history of Ovarian cancer Prostate cancer Breast cancer Colorectal cancer Social History Smoking Status: Former smoker Tobacco Type: Cigarettes Age Started Using Tobacco: 16; Age Quit Using Tobacco: 19; Cigarettes Per Day: 2-3; Second Hand Exposure: No; Do You Dip or Chew Tobacco: No; Tobacco Cessation Education Requested by Patient: No Hx Alcohol Use: No Hx Substance Use: No Preferred Language: Thai Communication Ability: Effective Visual Impairment: Partially Limited Hearing Ability: Hard of Hearing Continuous Mining Operator Required: No Beliefs That Will Affect Care: None marital status: Current Living Situation: Spouse Current Living Situation Comment: Lives at home with current occupational status: disabled Other Information That Helps Us Care for You: No Feels Safe at Home: Yes Childhood Exposure to Second-Hand Smoke: Yes Diet: regular Diet Comment: Mediterranean Dental Care, Regularly: Yes Physical Activity Frequency: Does not Exercise Seatbelt Use: always Sunscreen Use: No Assistive Devices: CPAP, Crutches, Glasses, Lift Chair, Nebulizer, Oxygen - Continuous, Raised Toilet Seat and Wheelchair Allergies Allergies Allergy/AdvReac Type Severity Reaction Status Date / Time duloxetine Allergy Severe INCREASES Verified 03/17/24 14:37 MUSCLE SPASMS, UNABLE TO MOVE fentanyl Allergy Severe "I almost Verified 03/17/24 14:37 when they gave it me" fexofenadine Allergy Severe HEART Verified 03/17/24 14:37 PALPITATIONS iodine Allergy Severe RASH, Verified 03/17/24 14:37 BLISTERS, ITCHING latex Allergy Severe RASH, Verified 03/17/24 14:37 BLISTERS povidone-iodine Allergy Severe RASH, Verified 03/17/24 14:37 BLISTERS salmeterol Allergy Severe INCREASE Verified 03/17/24 14:37 SPASMS AND CAN NOT MOVE diazepam Allergy Intermediate FALLS Verified 03/17/24 14:37 ASLEEP AND DROOL adhesive Allergy Mild RASH, Verified 03/17/24 14:37 BLISTERS baclofen Allergy Mild SLEEPY AND Verified 03/17/24 14:37 LEG PAIN cephalexin Allergy Mild NAUSEA, Verified 03/17/24 14:37 FLU-LIKE SYMPTOMS, RASH fluticasone Allergy Mild NOSE BLEEDS Verified 03/17/24 14:37 gabapentin Allergy Mild DIZZINESS Verified 03/17/24 14:37 AND FELL OVER tramadol Allergy Mild RASH & Verified 03/17/24 14:37 ITCHING methadone AdvReac Mild MEMORY Verified 03/17/24 14:37 LOSS, DIZZINESS, NIGHTMARES Home Meds Home Medications Medication Instructions Recorded Confirmed azelastine 137 mcg (0.1 %) nasal 1 spray intranasal UD PRN Allergy 11/12/18 03/23/24 spray Symptoms lorazepam 2 mg tablet 2 mg PO Q4 09/07/19 03/23/24 calcium carbonate (Calcium 500) 500 mg PO QAM 11/10/19 03/23/24 cholecalciferol (vitamin D3) 25 2,000 mcg PO QAM 11/10/19 03/23/24 mcg (1,000 unit) tablet (Vitamin D3) omega-3 fatty acids 1,000 mg PO QAM 11/10/19 03/23/24 hydrocodone 10 mg-acetaminophen 2 tab PO Q4H PRN Pain 03/15/20 03/23/24 325 mg tablet mirtazapine 30 mg tablet 30 mg PO HS 11/12/22 03/23/24 omeprazole 20 mg capsule,delayed 20 mg PO DAILY Acid Reflux 11/12/22 03/23/24 release venlafaxine 25 mg tablet 75 mg PO DAILY 01/06/23 03/23/24 alprazolam 1 mg tablet 1 mg PO DAILY 10/30/23 03/23/24 estradiol 0.01% (0.1 mg/gram) 0.5 g vaginal 3XWK PRN Other 10/30/23 03/23/24 vaginal cream sucralfate 1 gram tablet 1 g PO BID PRN Other 10/30/23 03/23/24 Oxygen Home 11/20/23 03/23/24 GLENN 1 tab PO 3XD 10/10/24 02/05/25 Previous Rx's Medication Instructions Recorded famotidine 20 mg tablet (Pepcid AC) 20 mg PO DAILY #30 tabs 11/18/19 ondansetron 8 mg disintegrating 8 mg PO Q8H PRN Nausea #90 tabs 01/17/21 tablet nystatin-triamcinolone 100,000 1 applic topical QID PRN Rash 10 11/15/23 unit/g-0.1 % topical cream days #60 grams Miscellaneous Pulmonary Supply #1 ea 11/24/23 bumetanide 2 mg tablet 2 mg PO DAILY #60 tabs 11/26/23 albuterol sulfate 90 mcg/actuation 1 puff inhalation UD PRN Shortness 12/17/23 aerosol inhaler Of Breath #3 Inhalers potassium chloride 10 mEq 30 meq (3 x 10 mEq) PO DAILY #90 12/17/23 tablet,extended release tabs conjugated estrogens 0.45 mg 0.45 mg PO QAM #90 tabs 02/03/24 tablet (Premarin) levalbuterol HCl 1.25 mg/0.5 mL 1.25 mg (0.5 mL) inhalation Q4H 02/16/24 solution for nebulization #30 ea Miscellaneous Pulmonary Supply #1 ea 02/25/24 Results & Data (ED) Vital Signs Vital Signs - 24 hr 03/22/24 19:18 03/22/24 20:14 03/22/24 21:00 Temperature 38.9 C H Temperature Source Oral Pulse Rate 91 H 87 Pulse Rate [Apical] 78 Respiratory Rate 18 18 Respiratory Effort / Characteristics Non-Labored Spontaneous Non-Labored Spontaneous Respiratory Depth Normal Normal Respiratory Pattern Regular Regular Blood Pressure 145/102 H Blood Pressure [Right Arm] 175/107 H Blood Pressure Mean 116 Blood Pressure Mean [Right Arm] 129 Pulse Oximetry 86 L 91 Oxygen Delivery Method Room Air Nasal Cannula Oxygen Flow Rate 2 Sepsis Recent Fever Within 48 Hours Yes Sepsis New/Unexplained Change in Mental Status N/A Sepsis Action Taken by Nursing No Action Required 03/22/24 22:00 Temperature Temperature Source Pulse Rate Pulse Rate [Apical] 80 Respiratory Rate 18 Respiratory Effort / Characteristics Non-Labored Spontaneous Respiratory Depth Normal Respiratory Pattern Regular Blood Pressure Blood Pressure [Right Arm] 172/111 H Blood Pressure Mean Blood Pressure Mean [Right Arm] 131 Pulse Oximetry 95 Oxygen Delivery Method Nasal Cannula Oxygen Flow Rate 2 Sepsis Recent Fever Within 48 Hours Sepsis New/Unexplained Change in Mental Status Sepsis Action Taken by Nursing Laboratory Data 03/22/24 19:50 03/22/24 19:50 Lab Results 03/22/24 03/22/24 03/22/24 Range/Units 19:50 19:56 23:34 WBC 11.68 H (4.8-10.8) K/ul RBC 4.88 (4.20-5.40) M/uL Hgb 14.8 (12.0-16.0) g/dl POC Hgb 16.0 (12.0-16.0) g/dl Hct 46.0 (37.0-47.0) % POC Hct 47 (37-47) % MCV 94.3 (80.0-100.0) fL MCH 30.3 (25.0-34.0) pg MCHC 32.2 (32.0-36.0) g/dL RDW Std Deviation 49.0 H (36.4-46.3) fL RDW Coeff of Luis 14.1 (11.5-14.5) % Plt Count 259 (130-400) K/uL MPV 10.3 (9.4-12.4) fL Immature Gran % (Auto) 1.2 % Neut % (Auto) 70.5 % Lymph % (Auto) 21.3 % [place] % (Auto) 5.4 % Eos % (Auto) 0.9 % Baso % (Auto) 0.7 % Neut # (Auto) 8.24 H (1.40-6.50) K/uL Lymph # (Auto) 2.49 (1.20-3.40) K/uL [place] # (Auto) 0.63 H (0.11-0.59) K/uL Eos # (Auto) 0.10 (0.00-0.50) K/uL Baso # (Auto) 0.08 (0.00-0.20) K/uL Immature Gran # (Auto) 0.14 (0.01-0.20) K/uL VBG pH (7.36-7.41) VBG pCO2 (38-50) mmHg VBG pO2 mmHg VBG HCO3 mmol/L VBG O2 Saturation % VBG Base Excess mEq/L POC Sodium 139 (135-144) mmol/L Sodium 139 (136-145) mmol/L POC Potassium 4.0 (3.3-5.0) mmol/L Potassium 4.0 (3.5-5.1) mmol/L POC Chloride 94 L (101-112) mmol/L Chloride 96 L (98-107) mmol/L Carbon Dioxide 40 H (21-32) mmol/L POC Total CO2 34 H (24-31) mmol/L Anion Gap 3 (3-11) POC Anion Gap 16.0 (16-25) mmol/L POC BUN 13 (7-18) mg/dl BUN 14 (6-23) mg/dl Creatinine 0.73 (0.6-1.2) mg/dl POC Creatinine 0.9 (0.6-1.3) mg/dl Est Cr Clr Drug Dosing 86.8 ml/min eGFR 88.42 BUN/Creatinine Ratio 19.2 (10-20) Glucose 103 H (70-99(Fasting)) mg/dl POC Glucose (other) 107 H (70-99) mg/dl Lactate (0.4-2.0) mmol/L Calcium 9.3 (8.6-10.3) mg/dl POC Ioniz Calcium Víctor 1.21 (1.12-1.32) mmol/l Total Bilirubin 0.6 (0.2-1.0) mg/dl AST 19 (13-39) U/L ALT 17 (7-52) U/L Alkaline Phosphatase 38 (34-104) U/L B-Natriuretic Peptide 145 H (0-100) pg/ml Total Protein 7.4 (6.0-8.3) gm/dl Albumin 4.0 (3.4-5.0) gm/dl Globulin 3.4 (2.5-4.0) gm/dl Albumin/Globulin Ratio 1.2 (0.9-2) Procalcitonin 0.07 (0-0.5) ng/ml Urine Color Yellow Urine Appearance Clear (Clear) Urine pH 5.5 (4.5-7.5) Ur Specific [place] 1.022 (1.000-1.030) Urine Protein Trace H (Negative) Urine Glucose (UA) Negative (Negative) Urine Ketones Negative (Negative) Urine Blood Negative (Negative) Urine Nitrite Negative (Negative) Urine Bilirubin Negative (Negative) Urine Urobilinogen Negative (Negative) Ur Leukocyte Esterase 1+ H (Negative) Urine WBC (Auto) 11-20 H (0-5) /hpf Urine RBC (Auto) 3-5 H (0-2) /hpf U Hyaline Cast (Auto) 3-5 H (0-2) /lpf U Epithel Cells (Auto) 11-20 H (0-2) /hpf Urine Bacteria (Auto) 2+ H (None Seen) Adenovirus (PCR) Not Detected (NotDetected) B. pertussis DNA (PCR) Not Detected (NotDetected) B.parapertussis DNA PCR Not Detected (NotDetected) C. pneumoniae DNA (PCR) Not Detected (NotDetected) Coronavirus OC43 (PCR) Not Detected (NotDetected) Coronavirus HKU1 (PCR) Not Detected (NotDetected) Coronavirus 229E (PCR) Not Detected (NotDetected) SARS-CoV-2 (PCR) Not Detected (NotDetected) Coronavirus NL63 (PCR) Not Detected (NotDetected) Human Metapneumovir PCR Not Detected (NotDetected) Influenza Type A (PCR) Not Detected (NotDetected) Influenza Type B (PCR) Not Detected (NotDetected) M. pneumoniae (PCR) Not Detected (NotDetected) Parainfluenza 1 (PCR) Not Detected (NotDetected) Parainfluenza 2 (PCR) Not Detected (NotDetected) Parainfluenza 3 (PCR) Not Detected (NotDetected) Parainfluenza 4 (PCR) Not Detected (NotDetected) RSV (PCR) Not Detected (NotDetected) Entero/Rhino (PCR) Not Detected (NotDetected) 03/22/24 Range/Units 23:46 WBC (4.8-10.8) K/ul RBC (4.20-5.40) M/uL Hgb (12.0-16.0) g/dl POC Hgb (12.0-16.0) g/dl Hct (37.0-47.0) % POC Hct (37-47) % MCV (80.0-100.0) fL MCH (25.0-34.0) pg MCHC (32.0-36.0) g/dL RDW Std Deviation (36.4-46.3) fL RDW Coeff of Luis (11.5-14.5) % Plt Count (130-400) K/uL MPV (9.4-12.4) fL Immature Gran % (Auto) % Neut % (Auto) % Lymph % (Auto) % [place] % (Auto) % Eos % (Auto) % Baso % (Auto) % Neut # (Auto) (1.40-6.50) K/uL Lymph # (Auto) (1.20-3.40) K/uL [place] # (Auto) (0.11-0.59) K/uL Eos # (Auto) (0.00-0.50) K/uL Baso # (Auto) (0.00-0.20) K/uL Immature Gran # (Auto) (0.01-0.20) K/uL VBG pH 7.40 (7.36-7.41) VBG pCO2 75 H (38-50) mmHg VBG pO2 35 mmHg VBG HCO3 47 mmol/L VBG O2 Saturation 65.4 % VBG Base Excess 17.6 mEq/L POC Sodium (135-144) mmol/L Sodium (136-145) mmol/L POC Potassium (3.3-5.0) mmol/L Potassium (3.5-5.1) mmol/L POC Chloride (101-112) mmol/L Chloride (98-107) mmol/L Carbon Dioxide (21-32) mmol/L POC Total CO2 (24-31) mmol/L Anion Gap (3-11) POC Anion Gap (16-25) mmol/L POC BUN (7-18) mg/dl BUN (6-23) mg/dl Creatinine (0.6-1.2) mg/dl POC Creatinine (0.6-1.3) mg/dl Est Cr Clr Drug Dosing ml/min eGFR BUN/Creatinine Ratio (10-20) Glucose (70-99(Fasting)) mg/dl POC Glucose (other) (70-99) mg/dl Lactate 1.3 (0.4-2.0) mmol/L Calcium (8.6-10.3) mg/dl POC Ioniz Calcium Víctor (1.12-1.32) mmol/l Total Bilirubin (0.2-1.0) mg/dl AST (13-39) U/L ALT (7-52) U/L Alkaline Phosphatase (34-104) U/L B-Natriuretic Peptide (0-100) pg/ml Total Protein (6.0-8.3) gm/dl Albumin (3.4-5.0) gm/dl Globulin (2.5-4.0) gm/dl Albumin/Globulin Ratio (0.9-2) Procalcitonin (0-0.5) ng/ml Urine Color Urine Appearance (Clear) Urine pH (4.5-7.5) Ur Specific [place] (1.000-1.030) Urine Protein (Negative) Urine Glucose (UA) (Negative) Urine Ketones (Negative) Urine Blood (Negative) Urine Nitrite (Negative) Urine Bilirubin (Negative) Urine Urobilinogen (Negative) Ur Leukocyte Esterase (Negative) Urine WBC (Auto) (0-5) /hpf Urine RBC (Auto) (0-2) /hpf U Hyaline Cast (Auto) (0-2) /lpf U Epithel Cells (Auto) (0-2) /hpf Urine Bacteria (Auto) (None Seen) Adenovirus (PCR) (NotDetected) B. pertussis DNA (PCR) (NotDetected) B.parapertussis DNA PCR (NotDetected) C. pneumoniae DNA (PCR) (NotDetected) Coronavirus OC43 (PCR) (NotDetected) Coronavirus HKU1 (PCR) (NotDetected) Coronavirus 229E (PCR) (NotDetected) SARS-CoV-2 (PCR) (NotDetected) Coronavirus NL63 (PCR) (NotDetected) Human Metapneumovir PCR (NotDetected) Influenza Type A (PCR) (NotDetected) Influenza Type B (PCR) (NotDetected) M. pneumoniae (PCR) (NotDetected) Parainfluenza 1 (PCR) (NotDetected) Parainfluenza 2 (PCR) (NotDetected) Parainfluenza 3 (PCR) (NotDetected) Parainfluenza 4 (PCR) (NotDetected) RSV (PCR) (NotDetected) Entero/Rhino (PCR) (NotDetected) Administered Medications Discontinued Medications Azithromycin (Azithromycin 250 Mg Tab) 500 mg PO ONE STA Stop: 03/22/24 23:46 Last Admin: 03/23/24 00:15 Dose: 500 mg Documented By: KESHA Hydralazine HCl (Hydralazine Hcl 20 Mg/Ml Vial) 5 mg IV NOW STA Stop: 03/23/24 02:41 Last Admin: 03/23/24 03:02 Dose: 5 mg Documented By: KESHA Ceftriaxone Sodium (Rocephin) 2,000 mg in 50 mls @ 100 mls/hr IV NOW STA Stop: 03/22/24 23:40 Last Infusion: 03/23/24 00:48 Dose: Infused Documented By: Admin: 03/23/24 00:15 Dose: 100 mls/hr Documented By: KESHA Sodium Chloride (Nss) 500 mls @ 999 mls/hr IV .Q31M ONE Stop: 03/22/24 23:42 Last Infusion: 03/23/24 00:48 Dose: Infused Documented By: Admin: 03/23/24 00:16 Dose: 999 mls/hr Documented By: KESHA Imaging Data Radiologist's Impression: Chest X-Ray 03/22/24 19:55 Exam(s): XR CXR 1 VIEW EXAM: XR Chest, 1 View CLINICAL HISTORY: Reason for exam: SOB. TECHNIQUE: Frontal view of the chest. COMPARISON: 10/30/2023 FINDINGS: Lungs: Mild central pulmonary vascular congestion. No consolidation. Pleural space: Trace left pleural effusion. No pneumothorax. Heart: Cardiomegaly. Mediastinum: Unremarkable. Normal mediastinal contour. Bones/joints: Unremarkable. No acute fracture. IMPRESSION: CHF with trace left pleural effusion Electronically signed by: Milton Lowe MD 03/22/24 21:01 PM Discharge Plan Visit Data Chief Complaint: Illness Stated Complaint: LOW O2 FOR - HE WANTS HER CHECKED OUT ED Provider: Ranjith Renae Discharge Problem: Hypoxia Discharge Instructions Interventions: ED Discharge Assessment Last Done: 03/23/24 00:53
--- NOTE | 2024-03-22 23:56 | History & Physical Report ---
Date of Service March 22, 2024 Assessment & Plan (1) Acute on chronic respiratory failure with hypoxia and hypercapnia: (2) Pneumonia: Plan 68-year-old female PMHx hyperparathyroidism, complex sleep apnea, neuromuscular respiratory weakness, type I CRPS, restrictive lung disease, obesity hypoventilation syndrome, PTSD, anxiety, depression, HTN, cerebral palsy, and GERD presenting to ED via EMS for reportedly low O2 readings. reports that the patient's O2 saturation was as low as 64%, but when placed on oxygen went back up to the 80s 90s. Patient reportedly wears 2L O2 as needed and NIV breathing machine at night but is not overly compliant with this as she often ta kes off the mask. Patient has been having some word finding difficulties mainly prominent when she is fatigued or, per report of patient, when she is anxious about trying to find the correct words. ED workup reveals leukocytosis of 11.68, neutrophil predominant, CMP chloride 96, CO2 at 40 (at patient's baseline), negative BioFire, CXR with evidence of CHF and trace L pleural effusion. EKG NSR, rate 90s. Provided with Rocephin and azithromycin in ED. #Acute on chronic respiratory failure with hypoxia and hypercapnia/PNA Presenting w/ reportedly low O2 saturation readings at home, dipping into the 60s, but per EMS lowest was in the 80s. On as needed O2 at baseline as well as nightly O2. Not overly compliant with O2; Hypoxic on admission, currently requiring 2L O2 via NC. Likely 2/2 combination of ? PNA + CHF + obesity hypoventilation syndrome + neuromuscular respiratory weakness. Likely chronic hypercapnic respiratory failure with intermittent bouts of acute hypoxia which is what patient is presenting with the time of mission. In prior notes during hospitalizations, it appears that past providers have discussed the importance of utilizing oxygen with the patient. ? whether or not the patient does not utilize this secondary to not truly understanding of the O2 or by unwillingness. - CBC with leukocytosis 11k, VBGs CO2 75, CMP with chloride 96 and CO2 40, no anion gap; CXR CHF with L pleural effusion - Given leukocytosis, presence of LLL infiltrate, fever, and worsening hypoxia, continue treatment for PNA- Azithromycin 500 mg x 3 days (first dose given 03/22/2024) - VBG w/ CO2 75, blood culture pending #Heart failure H/o HFpEF; presenting with hypoxia. States that weights have been stable and she does not feel that she has had increased swelling in her abdomen or lower extremities. No SOB or coughing. - Current weight 120 EKG; Daily weights standing and I+Os - Echo 10/21/2023- LVEF 50 to 55%; BNP pending; CXR with CHF and L pleural effusion - On Bumex at baseline 2 mg daily - continue on this dose for now, reevaluate need to increase diuresis if hypoxia does not improve - SCDs, emily stockings, promote leg elevation and frequent movement #HTN- On Bumex as outpatient however no additional medications to address HTN #Type I CRPS/Back pain- Acetaminophenhydrocodone and lorazepam; heating pad for back pain prn #PEEWEE- Not tolerating nightly O2, often removing mask per #Restrictive lung disease- Continue nebs and inhalers #Gastroparesis- Sucralfate as needed Of note, it was discussed with the patient's the patient's current mental state. Does have history of psychiatric diagnoses and concerns from regarding if she is having early signs of dementia presenting and at this time contributing to word finding some of the other behaviors that she is displaying. Discussed that I do not think it would be unreasonable to complete a mini cognitive exam if the day team agrees, however I did not want to have this done while the patient was still hypoxic in the event that this was the reason for the changes in mental status. Dispo: Admit med/tele VTE prophylaxis: Lovenox This document was dictated utilizing Wally. Please excuse any grammatical errors that may be secondary to use of this software. Admission and Anticipated Discharge Date Admission Date: 03/22/2024 History of Present Illness Chief Complaint: Hypoxia Primary Care Provider: Lelia Benton DO 68-year-old female PMHx hyperparathyroidism, complex sleep apnea, neuromuscular respiratory weakness, type I CRPS, restrictive lung disease, obesity hypoventilation syndrome, PTSD, anxiety, depression, HTN, cerebral palsy, and GERD presenting to ED via EMS for reportedly low O2 readings. reports that the patient's O2 saturation was as low as 64%, but when placed on oxygen went back up to the 80s 90s. Patient reportedly wears 2L O2 as needed and NIV breathing machine at night but is not overly compliant with this as she often takes off the mask. EMS reported sats were 89 to 90% and route to hospital and greater than 90% on 5L NC. Patient also agree that the patient has been having some word finding difficulties mainly prominent when she is fatigued or, per report of patient, when she is anxious about trying to find the correct words. Patient states that she does not feel overly short of breath, has not been having coughing, and no fever or chills that she can recall. She does have increased sweating normally in the afternoon/evening time. Of note, the patient did injure her back approximately 3-4 days [employer] and has been utilizing pain medications as well as topical heat and ice to alleviate the pain. The does inform that the patient does appear to be having a slight cognitive decline combined with psychiatric diagnoses which concerned him for early signs of dementia. Overall, patient is denying chest pain, shortness of breath, abdominal pain, or other concerning symptoms. Took her medications as prescribed. ED workup reveals leukocytosis of 11.68, neutrophil predominant, CMP chloride 96, CO2 at 40 (at patient's baseline), negative BioFire, CXR with evidence of CHF and trace L pleural effusion. EKG NSR, rate 90s. Provided with Rocephin and azithromycin in ED. Please see Dr. Hung's attestation for adjustments/additions to treatment plan. Allergies Allergy/AdvReac Type Severity Reaction Status Date / Time duloxetine Allergy Severe INCREASES Verified 03/17/24 14:37 MUSCLE SPASMS, UNABLE TO MOVE fentanyl Allergy Severe "I almost Verified 03/17/24 14:37 when they gave it me" fexofenadine Allergy Severe HEART Verified 03/17/24 14:37 PALPITATIONS iodine Allergy Severe RASH, Verified 03/17/24 14:37 BLISTERS, ITCHING latex Allergy Severe RASH, Verified 03/17/24 14:37 BLISTERS povidone-iodine Allergy Severe RASH, Verified 03/17/24 14:37 BLISTERS salmeterol Allergy Severe INCREASE Verified 03/17/24 14:37 SPASMS AND CAN NOT MOVE diazepam Allergy Intermediate FALLS Verified 03/17/24 14:37 ASLEEP AND DROOL adhesive Allergy Mild RASH, Verified 03/17/24 14:37 BLISTERS baclofen Allergy Mild SLEEPY AND Verified 03/17/24 14:37 LEG PAIN cephalexin Allergy Mild NAUSEA, Verified 03/17/24 14:37 FLU-LIKE SYMPTOMS, RASH fluticasone Allergy Mild NOSE BLEEDS Verified 03/17/24 14:37 gabapentin Allergy Mild DIZZINESS Verified 03/17/24 14:37 AND FELL OVER tramadol Allergy Mild RASH & Verified 03/17/24 14:37 ITCHING methadone AdvReac Mild MEMORY Verified 03/17/24 14:37 LOSS, DIZZINESS, NIGHTMARES Home Medications Medication Instructions Recorded Confirmed Type azelastine 137 mcg (0.1 %) nasal 1 spray intranasal UD PRN Allergy 11/12/18 03/23/24 History spray Symptoms lorazepam 2 mg tablet 2 mg PO Q4 09/07/19 03/23/24 History calcium carbonate (Calcium 500) 500 mg PO QAM 11/10/19 03/23/24 History cholecalciferol (vitamin D3) 25 2,000 mcg PO QAM 11/10/19 03/23/24 History mcg (1,000 unit) tablet (Vitamin D3) omega-3 fatty acids 1,000 mg PO QAM 11/10/19 03/23/24 History famotidine 20 mg tablet (Pepcid AC) 20 mg PO DAILY #30 tabs 11/18/19 03/23/24 Rx hydrocodone 10 mg-acetaminophen 2 tab PO Q4H PRN Pain 03/15/20 03/23/24 History 325 mg tablet ondansetron 8 mg disintegrating 8 mg PO Q8H PRN Nausea #90 tabs 01/17/21 03/23/24 Rx tablet mirtazapine 30 mg tablet 30 mg PO HS 11/12/22 03/23/24 History omeprazole 20 mg capsule,delayed 20 mg PO DAILY Acid Reflux 11/12/22 03/23/24 History release venlafaxine 25 mg tablet 75 mg PO DAILY 01/06/23 03/23/24 History alprazolam 1 mg tablet 1 mg PO DAILY 10/30/23 03/23/24 History estradiol 0.01% (0.1 mg/gram) 0.5 g vaginal 3XWK PRN Other 10/30/23 03/23/24 History vaginal cream sucralfate 1 gram tablet 1 g PO BID PRN Other 10/30/23 03/23/24 History nystatin-triamcinolone 100,000 1 applic topical QID PRN Rash 10 11/15/23 03/23/24 Rx unit/g-0.1 % topical cream days #60 grams Oxygen Home 11/20/23 03/23/24 History Miscellaneous Pulmonary Supply #1 ea 11/24/23 03/23/24 Rx GLENN 1 tab PO 3XD 11/26/23 03/23/24 History bumetanide 2 mg tablet 2 mg PO DAILY #60 tabs 11/26/23 03/23/24 Rx albuterol sulfate 90 mcg/actuation 1 puff inhalation UD PRN Shortness 12/17/23 03/23/24 Rx aerosol inhaler Of Breath #3 Inhalers potassium chloride 10 mEq 30 meq (3 x 10 mEq) PO DAILY #90 12/17/23 03/23/24 Rx tablet,extended release tabs conjugated estrogens 0.45 mg 0.45 mg PO QAM #90 tabs 02/03/24 03/23/24 Rx tablet (Premarin) levalbuterol HCl 1.25 mg/0.5 mL 1.25 mg (0.5 mL) inhalation Q4H 02/16/24 03/23/24 Rx solution for nebulization #30 ea Miscellaneous Pulmonary Supply #1 ea 02/25/24 03/23/24 Rx Past Med/Surg History Problem List (Updated 03/23/24 @ 01:04 by Bill Hendrix PA-C) Pneumonia Acute on chronic respiratory failure with hypoxia and hypercapnia Multiple thyroid nodules Hyperparathyroidism Dietary counseling and surveillance Obesity Inconclusive mammogram Complex sleep apnea syndrome Neuromuscular respiratory weakness Type I CRPS (complex regional pain syndrome) (~01/01/24) Restrictive lung disease reason for inhalers/nebulizer CHF exacerbation (Acute) Hypoxia (Acute) Morbid obesity Nocturnal hypoxemia Severe obstructive sleep apnea Lumbar spinal stenosis Obesity hypoventilation syndrome Post traumatic stress disorder Anxiety Physical deconditioning Abnormal ankle brachial index Lymphedema Venous stasis ulcers Depression Delusional disorder Hearing loss Decubital ulcer Ataxia Cervical dystonia Spastic quadriparesis (Acute) Hormone replacement therapy Breast pain, right Osteoporosis screening Tubular adenoma Gastroparesis Hypertension Chronic back pain Cerebral palsy Early satiety Urinary urgency Vasomotor symptoms due to menopause Epigastric pain GERD (gastroesophageal reflux disease) Medical History Edema, pitting Shortness of breath Altered mental status Fluid overload Hypoxemia GERD (gastroesophageal reflux disease) Baclofen pump failure History of anesthesia reaction pt states that the last time she had an EGD at [facility] they had the blood pressure cuff on the same arm as her IV and she never received enough anesthesia because of this and she was in pain throughout all the whole experience Nerve pain Surgical History History of left hip replacement S/P endoscopy History of arthroscopy of left knee History of arthroscopy of right knee History of total left hip replacement History of colonoscopy History of appendectomy History of oophorectomy, unilateral right History of esophagogastroduodenoscopy (EGD) History of tooth extraction History of tonsillectomy H/O: hysterectomy with unilateral oophorectomy Family History Father Family history of diabetes mellitus Myocardial infarction Other No family history of adverse response to anesthesia Denies family history of Ovarian cancer Prostate cancer Breast cancer Colorectal cancer Social History Smoking Status: Former smoker Tobacco Type: Cigarettes Age Started Using Tobacco: 16; Age Quit Using Tobacco: 19; Cigarettes Per Day: 2-3; Second Hand Exposure: No; Do You Dip or Chew Tobacco: No; Tobacco Cessation Education Requested by Patient: No Hx Alcohol Use: No Hx Substance Use: No Preferred Language: Gibraltarian Communication Ability: Effective Visual Impairment: Partially Limited Hearing Ability: Hard of Hearing Enamel Finisher Required: No Beliefs That Will Affect Care: None marital status: Current Living Situation: Spouse Current Living Situation Comment: Lives at home with current occupational status: disabled Other Information That Helps Us Care for You: No Feels Safe at Home: Yes Childhood Exposure to Second-Hand Smoke: Yes Diet: regular Diet Comment: Mediterranean Dental Care, Regularly: Yes Physical Activity Frequency: Does not Exercise Seatbelt Use: always Sunscreen Use: No Assistive Devices: CPAP, Crutches, Glasses, Lift Chair, Nebulizer, Oxygen - Continuous, Raised Toilet Seat and Wheelchair Review of Systems Review of Systems: All systems reviewed & are unremarkable except as noted in Subjective Physical Exam Physical Exam: General: No acute distress, obese Skin: Warm and dry Head: Normocephalic, atraumatic Eyes: PERRL, conjunctivae clear, sclera non-icteric ENT: External ear and ear canal without swelling; nose atraumatic; fair dentition, tongue normal appearance, pharynx normal without tonsillar swelling or exudate Neck: Supple, no LAD; no JVD Cardio: RRR, no M/G/R, S1 and S2 normal Resp: No respiratory distress, slightly diminished breath sounds but lungs CTA in all lobes bilaterally, no wheezes, rales, or rhonchi- lung exam compromised some given that patient is unable to move herself passively without great assistance and transfers. Abdomen: Soft, symmetric, nontender; No masses or hepatosplenomegaly; Bowel sounds normoactive MSK: Full ROM throughout at the patient's baseline; pulses palpable and equal; trace pitting edema BLE. Neuro: Awake, alert; slight delay in finding words, but does stay on track with conversation; CN grossly intact Psych: Appropriate mood and affect; good judgement and insight. present in room at time of visit. Results & Data Results & Data Vital Signs (Past 12 Hours) Vital Signs Temp Pulse Pulse Resp BP BP Pulse Ox 03/22/24 22:00 80 18 172/111 H 95 03/22/24 21:00 78 18 175/107 H 91 03/22/24 20:14 87 03/22/24 19:18 38.9 C H 91 H 18 145/102 H 86 L O2 Del Method O2 Flow Rate 03/22/24 22:00 Nasal Cannula 2 03/22/24 21:00 Nasal Cannula 2 03/22/24 20:14 03/22/24 19:18 Room Air Laboratory Results 03/22/24 23:37 Aerobic Blood Culture - Pending Blood Anaerobic Blood Culture - Pending 03/22/24 23:45 Aerobic Blood Culture - Pending Blood Anaerobic Blood Culture - Pending 03/22/24 03/22/24 19:56 19:50 WBC 11.68 H RBC 4.88 Hgb 14.8 POC Hgb 16.0 Hct 46.0 POC Hct 47 MCV 94.3 MCH 30.3 MCHC 32.2 RDW Std Deviation 49.0 H RDW Coeff of Luis 14.1 Plt Count 259 MPV 10.3 Immature Gran % (Auto) 1.2 Neut % (Auto) 70.5 Lymph % (Auto) 21.3 [place] % (Auto) 5.4 Eos % (Auto) 0.9 Baso % (Auto) 0.7 Neut # (Auto) 8.24 H Lymph # (Auto) 2.49 [place] # (Auto) 0.63 H Eos # (Auto) 0.10 Baso # (Auto) 0.08 Immature Gran # (Auto) 0.14 POC Sodium 139 Sodium 139 POC Potassium 4.0 Potassium 4.0 POC Chloride 94 L Chloride 96 L Carbon Dioxide 40 H POC Total CO2 34 H Anion Gap 3 POC Anion Gap 16.0 POC BUN 13 BUN 14 Creatinine 0.73 POC Creatinine 0.9 Est Cr Clr Drug Dosing 86.8 eGFR 88.42 BUN/Creatinine Ratio 19.2 Glucose 103 H POC Glucose (other) 107 H Calcium 9.3 POC Ioniz Calcium Víctor 1.21 Total Bilirubin 0.6 AST 19 ALT 17 Alkaline Phosphatase 38 B-Natriuretic Peptide 145 H Total Protein 7.4 Albumin 4.0 Globulin 3.4 Albumin/Globulin Ratio 1.2 Procalcitonin 0.07 Adenovirus (PCR) Not Detected B. pertussis DNA (PCR) Not Detected B.parapertussis DNA PCR Not Detected C. pneumoniae DNA (PCR) Not Detected Coronavirus OC43 (PCR) Not Detected Coronavirus HKU1 (PCR) Not Detected Coronavirus 229E (PCR) Not Detected SARS-CoV-2 (PCR) Not Detected Coronavirus NL63 (PCR) Not Detected Human Metapneumovir PCR Not Detected Influenza Type A (PCR) Not Detected Influenza Type B (PCR) Not Detected M. pneumoniae (PCR) Not Detected Parainfluenza 1 (PCR) Not Detected Parainfluenza 2 (PCR) Not Detected Parainfluenza 3 (PCR) Not Detected Parainfluenza 4 (PCR) Not Detected RSV (PCR) Not Detected Entero/Rhino (PCR) Not Detected Diagnostic Findings Chest X-Ray 03/22/24 19:55 Exam(s): XR CXR 1 VIEW EXAM: XR Chest, 1 View CLINICAL HISTORY: Reason for exam: SOB. TECHNIQUE: Frontal view of the chest. COMPARISON: 10/30/2023 FINDINGS: Lungs: Mild central pulmonary vascular congestion. No consolidation. Pleural space: Trace left pleural effusion. No pneumothorax. Heart: Cardiomegaly. Mediastinum: Unremarkable. Normal mediastinal contour. Bones/joints: Unremarkable. No acute fracture. IMPRESSION: CHF with trace left pleural effusion Electronically signed by: Milton Lowe MD 03/22/24 21:01 PM Medications Administered Azithromycin 500mg po x 1 Ceftriaxone 2g IV x 1 NSS 500mL IV ECG Additional Comments: NSR 90 bpm, NE 196, QRS 92, QT/QTc 384/469, PRT 86/6/79 Supervising Physician Co-Signing Physician Notes Patient seen and examined, chart reviewed, case discussed with MONSE Hendrix and I agree with the assessment and plan as above In brief, patient is a 68yo female with multiple medical comorbidities - acute on chronic respiratory failure with hypoxia and hypercapnia presenting with hypoxia, some word finding difficulty. Fever as well noted in the ER. On exam she is resting comfortably, answering questions appropriately Febrile at 38.9 MMM, Neck supple +S1/S2, regular Lungs CTA anteriorly Abd soft, NT/ND Ext - no edema Labs and images reviewed Possible PNA, UTI contributing to patient's word-finding issues as well as acute hypoxic events brought on by non-adherence to supplemental O2 -Azithromycin and Ceftriaxone -Continue supplemental O2 -Remainder as above PG Care Time/CCT Total # of Minutes Spent Total Time Spent with Patient: Total time spent is greater than 50% in coordination of care (as documented) at patient's floor/unit and/or counseling patient: Coding Level of Care Code 36745 INT INP/OBS CARE 3/75MIN Diagnoses Acute on chronic respiratory failure with hypoxia and hypercapnia J96.21; J96.22 Pneumonia J18.9
[2024-03-22 23:59] LABS: Base Excess VBG 17.6 mEq/L; HCO3 VBG 47 mmol/L; Oxygen Saturation VBG 65.4 %; PCO2 VBG 75 mmHg (38-50); PO2 VBG 35 mmHg
[2024-03-23] MEDS: AZITHROMYCIN 250 MG TAB PO STA (00:15)
[2024-03-23] MEDS: cefTRIAXone SODIUM 2,000 MG/50 ML BAG IV STA (00:15)
[2024-03-23] MEDS: SODIUM CHLORIDE 0.9% 500 ML IV ONE (00:16)
[2024-03-23 01:36] LABS: Appearance Urine Clear (Clear); Bacteria Urine Automated 2+ (None Seen); Bilirubin Urine Negative (Negative); Blood Urine Negative (Negative); Color Urine Yellow; Glucose Urine UA Negative (Negative); Ketones Urine Negative (Negative); Leukocyte Esterase Urine 1+ (Negative); Nitrite Urine Negative (Negative); Protein Urine Trace (Negative); Specific Gravity Urine 1.022 (1.000-1.030); Urobilinogen Urine Negative (Negative); pH Urine 5.5 (4.5-7.5)
[2024-03-23] MEDS: hydrALAZINE HCL 20 MG/ML VIAL IV STA ×2 (03:02→14:12)
[2024-03-23] MEDS ORDERED: SUCRALFATE 1 GM TAB PO PRN (03:32)
[2024-03-23] MEDS ORDERED: ALBUTEROL HFA 8 GM INHALER INH PRN (03:36)
[2024-03-23] MEDS ORDERED: ONDANSETRON 4 MG OD TAB PO PRN (04:02)
[2024-03-23] MEDS: LORazepam 1 MG TAB PO STA (04:18)
[2024-03-23] MEDS: MIRTAZAPINE TAB 15 MG TAB PO ONE (04:46)
[2024-03-23] MEDS: LABETALOL HCL IV 5 MG/ML 20ML IV STA (06:01)
[2024-03-23] MEDS: ENOXAPARIN INJ 40 MG/0.4 ML SYR SQ SCH (06:03)
[2024-03-23] MEDS: LEVALBUTEROL 1.25 MG/3 ML NEB INH SCH (07:01)
[2024-03-23] MEDS: VENLAFAXINE HCL 37.5 MG TAB PO SCH (08:27)
[2024-03-23] MEDS: PANTOprazole 40 MG TAB PO SCH (08:27)
[2024-03-23] MEDS: FAMOTIDINE 20 MG TAB PO SCH ×2 (08:27→21:00)
[2024-03-23] MEDS: LORazepam 1 MG TAB PO SCH (08:31)
--- NOTE | 2024-03-23 08:56 | Electrocardiogram Report ---
Test Reason : Blood Pressure : */* mmHG Vent. Rate : 90 BPM Atrial Rate : 90 BPM P-R Int : 196 ms QRS Dur : 92 ms QT Int : 384 ms P-R-T Axes : 86 6 79 degrees QTcB Int : 469 ms Normal sinus rhythm Normal ECG When compared with ECG of 30-Oct-2023 16:26, QRS axis Shifted right Confirmed by Naseem Osborne ([id number]) on 03/23/2024 8:56:29 AM Referred By: REFERRED SELF Confirmed By: Naseem Osborne
--- NOTE | 2024-03-23 11:06 | Hospitalist Progress Note ---
Date of Service March 23, 2024 Assessment & Plan (1) Acute on chronic respiratory failure with hypoxia and hypercapnia: (2) Pneumonia: Plan 68-year-old female PMHx hyperparathyroidism, complex sleep apnea, neuromuscular respiratory weakness, type I CRPS, restrictive lung disease, obesity hypoventilation syndrome, PTSD, anxiety, depression, HTN, cerebral palsy, and GERD presenting to ED via EMS for reportedly low O2 readings. reports that the patient's O2 saturation was as low as 64%, but when placed on oxygen went back up to the 80s 90s. Patient reportedly wears 2L O2 as needed and NIV breathing machine at night but is not overly compliant with this as she often takes off the mask. Patient has been having some word finding difficulties mainly prominent when she is fatigued or, per report of patient, when she is anxious about trying to find the correct words. ED workup reveals leukocytosis of 11.68, neutrophil predominant, CMP chloride 96, CO2 at 40 (at patient's baseline), negative BioFire, CXR with evidence of CHF and trace L pleural effusion. EKG NSR, rate 90s. Provided with Rocephin and azithromycin in ED. #Acute on chronic respiratory failure with hypoxia and hypercapnia/PNA Presenting w/ reportedly low O2 saturation readings at home, dipping into the 60s, but per EMS lowest was in the 80s. On as needed O2 at baseline as well as nightly O2. Not overly compliant with O2; Hypoxic on admission, currently requiring 2L O2 via NC. Likely 2/2 combination of ? PNA + CHF + obesity hypoventilation syndrome + neuromuscular respiratory weakness. Likely chronic hypercapnic respiratory failure with intermittent bouts of acute hypoxia which is what patient is presenting with the time of mission. In prior notes during hospitalizations, it appears that past providers have discussed the importance of utilizing oxygen with the patient. ? whether or not the patient does not utilize this secondary to not truly understanding of the O2 or by unwillingness. - CBC with leukocytosis 11k, VBGs CO2 75, CMP with chloride 96 and CO2 40, no anion gap; CXR CHF with L pleural effusion - Given leukocytosis, presence of LLL infiltrate, fever, and worsening hypoxia, continue treatment for PNA- Azithromycin 500 mg x 3 days (first dose given 03/22/2024) - VBG w/ CO2 75, blood culture pending - Encourage HS bipap #Heart failure H/o HFpEF; presenting with hypoxia. States that weights have been stable and she does not feel that she has had increased swelling in her abdomen or lower extremities. No SOB or coughing. - Current weight 120 EKG; Daily weights standing and I+Os - Echo 10/21/2023- LVEF 50 to 55%; BNP pending; CXR with CHF and L pleural effusion - On Bumex at baseline 2 mg daily - continue on this dose for now, reevaluate need to increase diuresis if hypoxia does not improve - SCDs, emily stockings, promote leg elevation and frequent movement #HTN- On Bumex as outpatient however no additional medications to address HTN #Type I CRPS/Back pain- Acetaminophenhydrocodone and lorazepam; heating pad for back pain prn, restarted home Percocet Patient is receiving very large prescriptions of Vicodin 10/325mg (300 tabs), Ativan 1mg (210 tabs), and Xanax 1mg (30 tabs) monthly; also received 300 IR oxycodone around the new year #PEEWEE- Not tolerating nightly O2, often removing mask per #Restrictive lung disease- Continue nebs and inhalers #Gastroparesis- Sucralfate as needed Of note, it was discussed with the patient's the patient's current mental state. Does have history of psychiatric diagnoses and concerns from regarding if she is having early signs of dementia presenting and at this time contributing to word finding some of the other behaviors that she is displaying. Discussed that I do not think it would be unreasonable to complete a mini cognitive exam if the day team agrees, however I did not want to have this done while the patient was still hypoxic in the event that this was the reason for the changes in mental status. Dispo: Admit med/tele VTE prophylaxis: Lovenox Admission and Anticipated Discharge Date Admission Date: March 22, 2024 Supervising Physician Co-Signing Physician Notes ATTESTATION I also saw the patient and confirmed singh portions of the history and exam. I agree with the impression and plan in the resident documentation, and as summarized below. At the time of my exam, patient sleeping with nasal cannula, 3 lpm, with SPO2 97%. DATA Labs WBC 11.68 Sodium 139, Potassium 4.0, BUN 13, Cr 0.73 AST 19, ALT 17, AP 38 BNP 145 Procalcitonin 0.07 Imaging CXR read as CHF with trace effusion. Micro Blood cultures pending. Urine culture pending. IMPRESSION & PLAN Possible pneumonia/UTI Acute on chronic hypercapnic respiratory failure, multifactorial including non compliance Rather low BNP but question CHF on CXR -Azithromycin and Ceftriaxone -Continue supplemental O2 -Continue home diuretics -Follow clinically -Repeat CXR in AM Subjective Patient seen and evaluated at bedside this morning. No acute events overnight. Very somnolent on exam. Imaging and labs reviewed. Does not appear to be in dec ompensated heart failure. Remains on supplemental O2. Of note, patient is on large doses of sedating medications at home. CXR without evidence of pneumonia, sm pleural effusion. Patient is a chronic CO2 retainer, refuses to use Bipap Review of Systems Review of Systems: reviewed, per HPI Physical Exam Physical Exam: Constitutional: well-appearing, no acute distress HEENT: NCAT, no conjunctival injection CV: well perfused Resp: on 2L NC, GI: nondistended MSK: no gross deformities appreciated Skin: warm, dry, no rash appreciated Neuro: somnolent Results & Data Results & Data Vital Signs (Past 12 Hours) Vital Signs Pulse Pulse Resp BP BP Pulse Ox O2 Del Method 03/23/24 10:35 65 20 100 Nasal Cannula 03/23/24 10:08 Nasal Cannula 03/23/24 10:00 62 20 178/79 H 98 Nasal Cannula 03/23/24 07:57 69 157/89 H 03/23/24 07:03 59 L 16 95 Nasal Cannula 03/23/24 07:01 63 03/23/24 07:00 64 20 157/89 H 97 Nasal Cannula 03/23/24 06:44 62 20 182/79 H 96 Nasal Cannula 03/23/24 06:12 59 L 20 182/79 H 95 Nasal Cannula 03/23/24 06:01 81 205/113 H 03/23/24 03:32 81 203/99 H 03/23/24 02:53 79 18 183/111 H 94 Nasal Cannula 03/23/24 01:36 80 03/23/24 01:03 74 18 199/106 H 98 Nasal Cannula 03/23/24 00:13 82 O2 Flow Rate 03/23/24 10:35 2 03/23/24 10:08 2 03/23/24 10:00 2 03/23/24 07:57 03/23/24 07:03 2.5 03/23/24 07:01 03/23/24 07:00 2 03/23/24 06:44 2 03/23/24 06:12 2 03/23/24 06:01 03/23/24 03:32 03/23/24 02:53 2 03/23/24 01:36 03/23/24 01:03 2 03/23/24 00:13 Resident Activity Tracking Resident Involvement: Resident Care Provided Care Provided: Adult [facility] Medicine
[2024-03-23] MEDS: oxyCODONE/ACETAMINOPHEN 10-325 TAB PO PRN (13:22)
[2024-03-23 13:55] LABS: Amphetamines+Metham, Urine Neg (Neg); Barbiturates, Urine Neg (Neg); Benzodiazepine, Urine Pos (Neg); Cocaine, Urine Neg (Neg); Fentanyl, Urine Neg (Neg); MDMA (Ecstacy), Urine Neg (Neg); Marijuana, Urine Neg (Neg); Methadone, Urine Neg (Neg); Opiate, Urine Pos (Neg); Phencyclidine, Urine Neg (Neg)
[2024-03-23] MEDS: HYDROcodone/ACETAMINOPHEN 10/325 TAB PO PRN ×2 (16:57→20:59)
[2024-03-23] MEDS: BUMETANIDE 1 MG TAB PO SCH (16:58)
[2024-03-23] MEDS: HYDROcodone/ACETAMINOPHEN 10/325 TAB PO STA (17:16)
[2024-03-23] MEDS ORDERED: cefTRIAXone SODIUM 1,000 MG/50 ML BAG IV STA (19:38)
[2024-03-23] MEDS: AZITHROMYCIN 250 MG TAB PO SCH (21:00)
[2024-03-23] MEDS: MIRTAZAPINE TAB 15 MG TAB PO SCH (21:01)
[2024-03-23] MEDS: cefTRIAXone SODIUM 2,000 MG/50 ML BAG IV SCH (21:05)
[2024-03-23] MEDS ORDERED: cefTRIAXone SODIUM 2,000 MG/50 ML BAG IV SCH (22:00)
[2024-03-24 08:17] LABS: Base Excess VBG 13.9 mEq/L; HCO3 VBG 39 mmol/L; Oxygen Saturation VBG 89.4 %; PCO2 VBG 49 mmHg (38-50); PO2 VBG 55 mmHg; pH VBG 7.51 (7.36-7.41)
[2024-03-24 08:21] LABS: Basophils # (auto) 0.04 K/uL (0.00-0.20); Basophils % (auto) 0.4 %; Eosinophils # (auto) 0.09 K/uL (0.00-0.50); Eosinophils % (auto) 0.8 %; Hematocrit (blood only) 43.4 % (37.0-47.0); Hemoglobin 14.2 g/dl (12.0-16.0); Immature Granulocytes # (auto) 0.06 K/uL (0.01-0.20); Immature Granulocytes % (auto) 0.5 %; Lymphocytes % (auto) 21.7 %; Mean Corpuscular Hemoglobin 30.2 pg (25.0-34.0); Mean Corpuscular Hgb Conc 32.7 g/dL (32.0-36.0); Mean Corpuscular Volume 92.3 fL (80.0-100.0); Monocytes # (auto) 0.59 K/uL (0.11-0.59); Monocytes % (auto) 5.3 %; Neutrophils # (auto) 7.86 K/uL (1.40-6.50); Neutrophils % (auto) 71.3 %; Platelet Count 229 K/uL (130-400); RDW Coefficient of Variation 14.3 % (11.5-14.5); RDW Standard Deviation 48.5 fL (36.4-46.3); White Blood Count 11.04 K/ul (4.8-10.8)
[2024-03-24 08:39] LABS: BUN Creatinine Ratio 26.4 (10-20); Calcium 8.9 mg/dl (8.6-10.3); Creatinine Clr Calc Pharmacy 121.1 ml/min; Potassium 3.3 mmol/L (3.5-5.1)
[2024-03-24] MEDS: POTASSIUM CHLORIDE 10 MEQ TABCR PO SCH (08:49)
[2024-03-24] MEDS: VALSARTAN 80 MG TAB PO SCH (12:52)
--- NOTE | 2024-03-24 13:19 | Hospitalist Progress Note ---
Date of Service March 24, 2024 Assessment & Plan (1) Acute on chronic respiratory failure with hypoxia and hypercapnia: (2) Pneumonia: Plan 68-year-old female PMHx hyperparathyroidism, complex sleep apnea, neuromuscular respiratory weakness, type I CRPS, restrictive lung disease, obesity hypoventilation syndrome, PTSD, anxiety, depression, HTN, cerebral palsy, and GERD presenting admitted for acute on chronic hypoxic, hypercapnic respiratory failure #Acute on chronic respiratory failure with hypoxia and hypercapnia Non compliant with NC and NIV at home Sats improved on 2L NC VBG improved this am Likely a component of over sedation from high doses of opiates and benzodiazepines CXR reassuring Continue azithromycin for anti-inflammatory effect (day 2/3) Encourage HS BiPAP #Heart failure H/o HFpEF; presenting with hypoxia. BNP and CXR reassuringk does not appear actively decompensated Continue home Bumex 2mg daily SCDs, emily stockings, promote leg elevation and frequent movement #HTN Add valsartan 160mg daily Likely will need to be continued and/or added to as an outpatient Continue Bumex #Type I CRPS/Back pain Patient is receiving very large prescriptions of Vicodin 10/325mg (300 tabs), Ativan 1mg (210 tabs), and Xanax 1mg (30 tabs) monthly; also received 300 IR oxycodone around the new year These are continued at prescribed outpatient dosing to avoid withdraw #PEEWEE Not tolerating nightly O2, often removing mask per Encourage compliance with HS BiPAP and daytime oxygen use #Restrictive lung disease Continue nebs and inhalers #Gastroparesis Sucralfate as needed Of note, it was discussed with the patient's the patient's current mental state. Does have history of psychiatric diagnoses and concerns from regarding if she is having early signs of dementia presenting and at this time contributing to word finding some of the other behaviors that she is displaying. Should have evaluation for dementia vs psychiatric diagnosis as an outpatient. Dispo: med/tele VTE prophylaxis: Lovenox Admission and Anticipated Discharge Date Admission Date: March 22, 2024 Supervising Physician Co-Signing Physician Notes Attending attestation Pt seen and examined in concert with Dr. Michelle. In agreement with the documented findings as noted in the resident documentation with any exceptions or additions as noted here. Still with wordfinding difficulty and some confusion with some improvement since previous exam per spouse at bedside. No overt complaints at present. On examination, S1/S2 nl RRR no MCG. CTAB. Abd NT/ND BS+ve. 2LNC w/ vS as noted including elevated BP. WBC 11.04; pH 7.51, pCO2 49 Acute on chronic hypercapnic respiratory failure - improving, now on 2L. Cou nseling strongly provided re: device compliance and momentum of illness resulting in decompensation Pneumonia - BCx 48 hours evening of 2.6.25. Continue azithromycin. Else see resident documentation as noted. Total attending physician time spent with this patient's care on this day: 45 minutes. Subjective Patient seen and evaluated at bedside this morning. No acute events overnight. Has been persistently hypertensive since admission, not on home antihypertensives besides Bumex. Blood cultures NGTD. Urine culture mixed urogenital doris. Denies urinary symptoms. Has remained afebrile. O2 sats are improved on 2L NC. Review of Systems Review of Systems: reviewed, per HPI Physical Exam Physical Exam: Constitutional: well-appearing, no acute distress HEENT: NCAT, no conjunctival injection CV: well perfused Resp: on 2L NC, no increased work of breathing GI: nondistended MSK: no gross deformities appreciated Skin: warm, dry, no rash appreciated Neuro: somnolent Results & Data Results & Data Vital Signs (Past 12 Hours) Vital Signs Temp Pulse Pulse Resp BP BP Pulse Ox 03/24/24 10:55 89 18 95 03/24/24 09:55 99 H 187/91 H 03/24/24 09:04 67 03/24/24 07:37 36.6 C 67 18 199/82 H 92 03/24/24 06:21 74 19 92 03/24/24 04:30 37.3 C 77 20 184/95 H 93 03/24/24 03:32 75 19 92 O2 Del Method O2 Flow Rate 03/24/24 10:55 Nasal Cannula 2 03/24/24 09:55 03/24/24 09:04 03/24/24 07:37 Nasal Cannula 2 03/24/24 06:21 Nasal Cannula 2 03/24/24 04:30 Nasal Cannula 2 03/24/24 03:32 Room Air Resident Activity Tracking Resident Involvement: Resident Care Provided Care Provided: Adult Hospital Medicine
[2024-03-25 08:44] LABS: Basophils # (auto) 0.04 K/uL (0.00-0.20); Basophils % (auto) 0.5 %; Eosinophils # (auto) 0.22 K/uL (0.00-0.50); Hematocrit (blood only) 47.6 % (37.0-47.0); Immature Granulocytes # (auto) 0.03 K/uL (0.01-0.20); Immature Granulocytes % (auto) 0.4 %; Lymphocytes # (auto) 2.74 K/uL (1.20-3.40); Lymphocytes % (auto) 37.1 %; Mean Corpuscular Hemoglobin 29.4 pg (25.0-34.0); Mean Corpuscular Hgb Conc 31.5 g/dL (32.0-36.0); Mean Corpuscular Volume 93.2 fL (80.0-100.0); Mean Platelet Volume 9.9 fL (9.4-12.4); Monocytes # (auto) 0.52 K/uL (0.11-0.59); Neutrophils # (auto) 3.83 K/uL (1.40-6.50); Platelet Count 252 K/uL (130-400); RDW Coefficient of Variation 14.6 % (11.5-14.5); RDW Standard Deviation 49.8 fL (36.4-46.3); Red Blood Count 5.11 M/uL (4.20-5.40); White Blood Count 7.38 K/ul (4.8-10.8)
[2024-03-25 08:54] LABS: Base Excess VBG 9.7 mEq/L; HCO3 VBG 38 mmol/L; Oxygen Saturation VBG 81.3 %; PCO2 VBG 65 mmHg (38-50); PO2 VBG 48 mmHg; pH VBG 7.37 (7.36-7.41)
[2024-03-25 09:00] LABS: BUN Creatinine Ratio 25.4 (10-20); Calcium 8.9 mg/dl (8.6-10.3); Creatinine Clr Calc Pharmacy 98.1 ml/min; Potassium 3.5 mmol/L (3.5-5.1)
--- NOTE | 2024-03-25 10:39 | Discharge Summary ---
Date of Service March 25, 2024 Admission HPI Per Admitting Provider 68-year-old female PMHx hyperparathyroidism, complex sleep apnea, neuromuscular respiratory weakness, type I CRPS, restrictive lung disease, obesity hypoventilation syndrome, PTSD, anxiety, depression, HTN, cerebral palsy, and GERD presenting to ED via EMS for reportedly low O2 readings. reports that the patient's O2 saturation was as low as 64%, but when placed on oxygen went back up to the 80s 90s. Patient reportedly wears 2L O2 as needed and NIV breathing machine at night but is not overly compliant with this as she often takes off the mask. EMS reported sats were 89 to 90% and route to hospital and greater than 90% on 5L NC. Patient also agree that the patient has been having some word finding difficulties mainly prominent when she is fatigued or, per report of patient, when she is anxious about trying to find the correct words. Patient states that she does not feel overly short of breath, has not been having coughing, and no fever or chills that she can recall. She does have increased sweating normally in the afternoon/evening time. Of note, the patient did injure her back approximately 3-4 days [employer] and has been utilizing pain medications as well as topical heat and ice to alleviate the pain. The does inform that the patient does appear to be having a slight cognitive decline combined with psychiatric diagnoses which concerned him for early signs of dementia. Overall, patient is denying chest pain, shortness of breath, abdominal pain, or other concerning symptoms. Took her medications as prescribed. ED workup reveals leukocytosis of 11.68, neutrophil predominant, CMP chloride 96, CO2 at 40 (at patient's baseline), negative BioFire, CXR with evidence of CHF and trace L pleural effusion. EKG NSR, rate 90s. Provided with Rocephin and azithromycin in ED. Please see Dr. Hung's attestation for adjustments/additions to treatment plan. Admission Exam Per Admitting Provider General: No acute distress, obese Skin: Warm and dry Head: Normocephalic, atraumatic Eyes: PERRL, conjunctivae clear, sclera non-icteric ENT: External ear and ear canal without swelling; nose atraumatic; fair dentition, tongue normal appearance, pharynx normal without tonsillar swelling or exudate Neck: Supple, no LAD; no JVD Cardio: RRR, no M/G/R, S1 and S2 normal Resp: No respiratory distress, slightly diminished breath sounds but lungs CTA in all lobes bilaterally, no wheezes, rales, or rhonchi- lung exam compromised some given that patient is unable to move herself passively without great assistance and transfers. Abdomen: Soft, symmetric, nontender; No masses or hepatosplenomegaly; Bowel sounds normoactive MSK: Full ROM throughout at the patient's baseline; pulses palpable and equal; trace pitting edema BLE. Neuro: Awake, alert; slight delay in finding words, but does stay on track with conversation; CN grossly intact Psych: Appropriate mood and affect; good judgement and insight. present in room at time of visit. Principal Diagnosis hypercapnic hypoxic respiratory failure Discharge Exam Gen: well appearing patient in NAD HEENT: AT NC MMM Resp: CTAB no wheezing no increased work of breathing CV: RRR no m/r/g clinically well perfused Abd: non-distended MSK: no obvious deformities Skin: no rashes or bruising Neuro: alert and oriented Psych: appropriate mood and affect Discharge Data Allergies Allergy/AdvReac Type Severity Reaction Status Date / Time duloxetine Allergy Severe INCREASES Verified 03/17/24 14:37 MUSCLE SPASMS, UNABLE TO MOVE fentanyl Allergy Severe "I almost Verified 03/17/24 14:37 when they gave it me" fexofenadine Allergy Severe HEART Verified 03/17/24 14:37 PALPITATIONS iodine Allergy Severe RASH, Verified 03/17/24 14:37 BLISTERS, ITCHING latex Allergy Severe RASH, Verified 03/17/24 14:37 BLISTERS povidone-iodine Allergy Severe RASH, Verified 03/17/24 14:37 BLISTERS salmeterol Allergy Severe INCREASE Verified 03/17/24 14:37 SPASMS AND CAN NOT MOVE diazepam Allergy Intermediate FALLS Verified 03/17/24 14:37 ASLEEP AND DROOL adhesive Allergy Mild RASH, Verified 03/17/24 14:37 BLISTERS baclofen Allergy Mild SLEEPY AND Verified 03/17/24 14:37 LEG PAIN cephalexin Allergy Mild NAUSEA, Verified 03/17/24 14:37 FLU-LIKE SYMPTOMS, RASH fluticasone Allergy Mild NOSE BLEEDS Verified 03/17/24 14:37 gabapentin Allergy Mild DIZZINESS Verified 03/17/24 14:37 AND FELL OVER tramadol Allergy Mild RASH & Verified 03/17/24 14:37 ITCHING methadone AdvReac Mild MEMORY Verified 03/17/24 14:37 LOSS, DIZZINESS, NIGHTMARES Ordered Studies Chest X-Ray 03/22/24 19:55 FINDINGS: Lungs: Mild central pulmonary vascular congestion. No consolidation. Pleural space: Trace left pleural effusion. No pneumothorax. Heart: Cardiomegaly. Mediastinum: Unremarkable. Normal mediastinal contour. Bones/joints: Unremarkable. No acute fracture. IMPRESSION: CHF with trace left pleural effusion Hospital Course (1) Acute on chronic respiratory failure with hypoxia and hypercapnia: (2) Pneumonia: Plan 68-year-old female PMHx hyperparathyroidism, complex sleep apnea, neuromuscular respiratory weakness, type I CRPS, restrictive lung disease, obesity hypoventilation syndrome, PTSD, anxiety, depression, HTN, cerebral palsy, and GERD presenting admitted for acute on chronic hypoxic, hypercapnic respiratory failure #Acute on chronic respiratory failure with hypoxia and hypercapnia #PEEWEE/OHS Likely multifactorial with PEEWEE/OHS, restrictive lung disease, CHF, polypharmacy. Patient does not consistently use NC and NIPPV at home. Concern for pneumonia treated with two doses of CTX. BCx NGTD x 48H. Continue Azithromycin 500 mg daily x 3 days. Encourage adherence to NIPPV and NC. Goal O2 88-92%. #Heart failure H/o HFpEF; presenting with hypoxia. BNP and CXR reassuring does not appear actively decompensated. Continue home Bumex 2mg daily. SCDs, emily stockings, promote leg elevation and frequent movement #HTN Persistently elevated with SBP > 200. Started valsartan 160 mg daily 03/24. Will continue at 80 mg on an outpatient basis, can uptitrate if needed. Continue Bumex. #Type I CRPS/Back pain Patient is receiving very large prescriptions of Vicodin 10/325mg (300 tabs), Ativan 1mg (210 tabs), and Xanax 1mg (30 tabs) monthly; also received 300 IR oxycodone around the new year These are continued at prescribed outpatient dosing to avoid withdraw #Restrictive lung disease Continue nebs and inhalers #Gastroparesis Sucralfate as needed Of note, it was discussed with the patient's the patient's current mental state. Does have history of psychiatric diagnoses and concerns from regarding if she is having early signs of dementia presenting and at this time contributing to word finding some of the other behaviors that she is displaying. Should have evaluation for dementia vs psychiatric diagnosis as an outpatient. Total Time Total Time Spent Total Time Spent (In Minutes): See attending attestation Discharge Plan Discharge Items Patient Disposition: Home - Home Health Services Reason For Visit: ACUTE ON CHRONIC HYPOXIC RESP FAILURE, ?PNA Discharge Diagnosis: acute on chronic hypercapnic respiratory failure Activity: Per Instructions section Non-emergency contact: Primary Care Provider Call non-emergency contact if: your symptoms worsen and your temperature is above 101.5 Follow-up/Referrals: Lelia Benton, [Primary Care Provider] - 03/30/24 8:25 am Diet: Heart Healthy and Low Sodium (2gm) Fluids: 2000ml (8 cups) Addtl Attending Provider Instructions: You were seen in the hospital for trouble breathing and change in mental status. You were treated with supplemental oxygen and BiPAP and your mental status improved. We did also treat you with Azithromycin as there is an anti- inflammatory effect. We will continue this for one more day. With your fever, increased work of breathing, and low oxygen levels there was initial concern for pneumonia. Ceftriaxone was started. Your blood cultures were negative with no growth after 48 hours. We have discontinued Ceftriaxone at this time. With your chronic respiratory failure, we would strongly recommend wearing your oxygen during the day with a goal SpO2 of 88-92%. You should also wear your BiPAP nightly to avoid the build up of CO2 that can cause confusion and decreased respiratory drive. We would also strongly recommend decreasing sedating medications such as - oxycodone, percocet, xanax, and ativan if possible. We would recommend that you follow up with the prescriber of these medications to discuss further. Your blood pressure was quite high while you were in the hospital. We started a medication called Valsartan at 80 mg daily. We will continue this medication for blood pressure control. You will need to follow your blood pressure with pressure checks and labs. Make sure to follow up with your PCP in the next 7-14 days. If your breathing worsens, you develop a fever, or your mental status clouds again please return to care. When you are seen in office make sure to make follow up appointments with the PCP of your choice - you should have a 40 minutes appointment every 6 weeks starting with their first availability. In addition you should schedule regular nursing visits for weights to monitor. Pending Studies at Discharge: No Stand-Alone Forms: [facility], Smoking Cessation Medications and DC Order Prescriptions: New azithromycin 250 mg Tablet 500 mg PO Q24H 1 Days Qty: 2 0RF valsartan 80 mg tablet 80 mg PO DAILY Qty: 30 0RF Continued omeprazole 20 mg capsule,delayed release(DR/EC) 20 mg PO DAILY famotidine [Pepcid AC] 20 mg tablet 20 mg PO DAILY Qty: 30 2RF Patient Comments: TAKES QPM nystatin-triamcinolone 100,000-0.1 unit/g-% cream 1 applic TOP QID PRN (Reason: Rash) 10 Days Qty: 60 1RF potassium chloride 10 mEq tablet extended release 30 meq PO DAILY Qty: 90 3RF Rx Instructions: 20meq in morning, 10meq in evening albuterol sulfate 90 mcg/actuation HFA aerosol inhaler 1 puff inhalation UD PRN (Reason: Shortness Of Breath) Qty: 3 3RF Premarin 0.45 mg tablet 0.45 mg PO QAM Qty: 90 3RF levalbuterol HCl 1.25 mg/0.5 mL solution for nebulization 1.25 mg inhalation Q4H Qty: 30 2RF Rx Instructions: must dilute for administration (DME) Miscellaneous Pulmonary Supply Misc See Rx Instructions .Route Qty: 1 3RF Rx Instructions: NACL 0.9% 5ml per unit, 100 count bumetanide 2 mg tablet 2 mg PO DAILY Qty: 60 3RF Rx Instructions: May increase to 2 mg BID PRN for edema. lorazepam 2 mg tablet 2 mg PO Q4 hydrocodone-acetaminophen 10-325 mg tablet 2 tab PO Q4H PRN (Reason: Pain) Rx Instructions: per pt she does 10 tabs a day GLENN 1 tab PO 3XD ondansetron 8 mg tablet,disintegrating 8 mg PO Q8H PRN (Reason: Nausea) Qty: 90 1RF mirtazapine 30 mg tablet 30 mg PO HS azelastine 137 mcg (0.1 %) aerosol,spray 1 spray intranasal UD PRN (Reason: Allergy Symptoms) (DME) Oxygen Home Liters Per Minute See Rx Instructions .Route Rx Instructions: "uses when she's not feeling well" "uses rarely" "thinks she uses 2 LPM" (DME) Miscellaneous Pulmonary Supply Misc See Rx Instructions .Route Qty: 1 0RF Rx Instructions: EtCO2 monitor calcium carbonate [Calcium 500] 500 mg calcium (1,250 mg) Tablet 500 mg PO QAM omega-3 fatty acids Capsule 1,000 mg PO QAM cholecalciferol (vitamin D3) [Vitamin D3] 25 mcg (1,000 unit) Tablet 2,000 mcg PO QAM venlafaxine 25 mg tablet 75 mg PO DAILY Rx Instructions: 3 tabs daily alprazolam 1 mg tablet 1 mg PO DAILY sucralfate 1 gram tablet 1 g PO BID PRN (Reason: Other) estradiol 0.01 % (0.1 mg/gram) cream 0.5 g vaginal 3XWK PRN (Reason: Other) Discharge Orders: Discharge Order (Routine); Ordered 03/25/24 Ordered By: Sarita Clark Admission Data Admit Date/Time: 03/22/24 23:56 Attending Provider: Joshua Rao Admit Provider: Amina Hung Primary Care Provider: Lelia Benton Other Providers: Amina Hung Other Interventions: Discharge Summary Assessment (RN) Last Done: 03/25/24 15:31 Supervising Physician Co-Signing Physician Notes Attending attestation Pt seen and examined in concert with Dr. Clark. In agreement with the documented findings as noted in the resident documentation with any exceptions or additions as noted here. Improving mentation and shortness of breath reported with pain well controlled on present medication regimen. Patient interested in more frequent/structured follow ups, as well as needing access to wheelchair ready scale in outpatient setting for weight management. On examination, S1/S2 nl RRR no MCG. decreased basilar breath sounds with mild rales on the L. Abd NT/ND BS+ve. VS as noted, ongoing elevated BP Acute on chronic hypercapnic respiratory failure - improving - counseling strongly provided re: device compliance and momentum of illness resulting in decompensation Pneumonia, suspected - complete course of azithromycin Else see resident documentation as noted. Total attending physician time spent with this patient's care on the day of discharge: 40 minutes Resident Activity Tracking Resident Involvement: Resident Care Provided Care Provided: Adult Hospital Medicine
[2024-03-25 11:16] VITALS: PULSE 86; RESP 20; TEMP 98.1; O2SAT 92
[2024-03-25 15:32] VITALS: BP 187/91
[2024-03-29 15:32] LABS: 7-Aminoclonaz, Confirm NEGATIVE ng/mL (<25); Codeine Urine NEGATIVE ng/mL (<50); Hydro-Alp Ur, GC/MS 294 ng/mL (<25); Hydrocodone Urine 8870 ng/mL (<50); Hydromor Urine 3730 ng/mL (<50); Hydroxyethylflurazepam, Conf NEGATIVE ng/mL (<50); Hydroxymidazolam Ur, GC/MS NEGATIVE ng/mL (<50); Hydroxytriazolam NEGATIVE ng/mL (<50); Lorazepam, Ur GC/MS >2000 ng/mL (<50); Morphine Urine NEGATIVE ng/mL (<50); Nordiazepam, Confirm NEGATIVE ng/mL (<50); Norhydrocodone Conf Ur 7960 ng/mL (<50); Noroxycodone Urine 1240 ng/mL (<50); Oxazepam Ur, GC/MS NEGATIVE ng/mL (<50); Oxycodone Urine 816 ng/mL (<50); Oxymorph Urine 2000 ng/mL (<50); Temazepam, Confirm NEGATIVE ng/mL (<50)
== END 2024-03-25 15:32 | disposition home or self-care (01) | DRG 189 ==
LOC: ED 19:34 → SUATTDRO 23:56 → EDINP 23:56 → 2N 03-23 00:53